=== PATIENT | male | born 1945 | race Caucasian/White ===

== ENCOUNTER 2018-07-09 06:11 | Emergency (ER) | payer MEDICARE ==
[~2018-07-09] VITALS: Ht 172.7 cm; Wt 68.0 kg
[2018-07-09 06:33] VITALS: BP 132/76
[2018-07-09] MEDS ORDERED: HYDR-3164 PO (06:33)
--- NOTE | 2018-07-09 06:44 | PHYS DOC ---
Past Medical History Past Medical History: High Cholesterol Additional Past Medical Histor: Chronic pain Past Surgical History: Other Additional Past Surgical Histo: Luiz knife Alcohol Use: None Drug Use: None Adult General Chief Complaint Chief Complaint: PAIN CONTROL HPI HPI Patient is a 72 year old male who presents with chronic pain. Patient is normally followed at the [facility] in [place] where he receives approximately 150 hydrocodone per month for control of chronic myalgias and facial pain which he has had for many years. Today, the patient has no new complaints. He is simply out of his hydrocodone. According to the [facility] records , the patient filled a prescription on June 27 for 150 hydrocodone. No fever or chills. No new injury. Review of Systems Review of Systems Constitutional: Denies HENT: Denies Respiratory: Denies cough Cardiovascular: No additional information not addressed in HPI : Denies dysuria or hematuria Musculoskeletal: Denies back pain Integument: Denies rash or skin lesions All other systems were reviewed and found to be within normal limits, except as documented in this note. Current Medications Current Medications Current Medications Medications (Trade) Dose Ordered Sig/Lesly Start Time Stop Time Status Last Admin Dose Admin Acetaminophen/ Hydrocodone Bitart (Lortab 5/325) 2 tab 1X ONCE 07/09/18 06:45 07/09/18 06:46 UNV Physical Exam Physical Exam Constitutional: Well developed, well nourished, no acute distress, non-toxic appearance HENT: Normocephalic, atraumatic, bilateral external ears normal, oropharynx moist, no oral exudates Eyes: PERRLA, EOMI, conjunctiva normal Neck: Normal range of motion, no tenderness, supple Skin: Warm, dry, no erythema, no rash Extremities: No edema Neurologic: Alert and oriented X 3 Psychologic: Affect normal Current Patient Data Vital Signs Vital Signs Date Time Temp Pulse Resp B/P (MAP) Pulse Ox O2 Delivery O2 Flow Rate FiO2 07/09/18 06:33 97.7 69 132/76 (94) 94 97.7 07/09/18 06:23 18 Room Air EKG EKG [] Radiology/Procedures Radiology/Procedures [] Impressions: Chronic Pain Course & Med Decision Making Course & Med Decision Making Pertinent Labs and Imaging studies reviewed. (See chart for details) Patient is seen for refill of chronic pain medications. He has no new or acute complaints today. According to records, he is using 10-15 hydrocodone daily. I informed that we could not refill pain medications for him in those quantities and that it was inappropriate use of the ER to present for refill of chronic pain medications. He is given two norco in the ER and provided an Rx for 15 hydrocodone as it is a Holiday weekend and he will not likely be able to f/u with his PCP at [place]. He is accompanied by a neighbor who is driving him. Recommended to return to the ER as needed for any new or acute complaints, but not for refill of chronic pain meds. [facility]. Dragon Disclaimer Dragon Disclaimer This electronic medical record was generated, in whole or in part, using a voice recognition dictation system. Departure Departure Impression: Primary Impression: Chronic pain Disposition: 01 HOME, SELF-CARE Condition: GOOD Patient Instructions: Chronic Pain Management-Brief Scripts Hydrocodone/Apap 5-325 (NORCO 5-325 TABLET) 1 Each Tablet 1-2 EACH PO PRN Q6HRS PRN for SEVERE PAIN, #15 as needed for pain Prov: MILADYS TUCKER DO 07/09/18 MILADYS TUCKER DO Jul 09, 2018 06:44
[2018-07-09] MEDS ORDERED: HYDROcodone/APAP 5/325MG 1 TAB TABLET PO ONE (07:00)
== END 2018-07-09 06:57 | disposition home or self-care (01) ==
LOC: ER 06:11
DX: G89.29 Other chronic pain (principal); M79.10 Myalgia, unspecified site; R51 Headache; E78.00 Pure hypercholesterolemia, unspecified
CPT/HCPCS: 99284-25

== ENCOUNTER 2019-07-25 12:32 | Inpatient (IN) | payer OTHER ==
[~2019-07-25] VITALS: Ht 177.8 cm; Wt 71.5 kg
[~2019-07-25 12:32] MED LIST: HYDR-3164 PO
[2019-07-25] MEDS ORDERED: IV NORMAL SALINE 1000ML BAG 1,000 ML IV SCH (12:34)
--- NOTE | 2019-07-25 12:50 | PHYS DOC ---
Past Medical History Past Medical History: High Cholesterol Additional Past Medical Histor: Chronic pain, TRIGEMINAL NEURALGIA, BPH Past Surgical History: Other Additional Past Surgical Histo: Luiz knife Alcohol Use: None Drug Use: None Adult General Chief Complaint Chief Complaint: confusion, low blood pressure HPI HPI Patient is a 73 year old patient with history of dyslipidemia, BPH, chronic pain, trigeminal neuralgia who presents via EMS with complaining of dizziness and low blood pressure and confusion. Patient is comfortable and unable to give history that according to EMS patient's daughter stated he lives with her and usually is alert and oriented but today was dizzy and unable to get out of bed and was confused. EMS reported that patient had blood pressure of 80s and treated with IV fluid with improvement of blood pressure at arrival to ER more than 100. Patient's daughter stated that they plan to send him to a intermediate. Review of Systems Review of Systems Constitutional: Denies fever or chills [] Eyes: Denies change in visual acuity, redness, or eye pain [] HENT: Denies nasal congestion or sore throat [] Respiratory: Denies cough or shortness of breath [] Cardiovascular: No additional information not addressed in HPI [] GI: Denies abdominal pain, nausea, vomiting, bloody stools or diarrhea [] : Denies dysuria or hematuria [] Musculoskeletal: Denies back pain or joint pain [] Integument: Denies rash or skin lesions [] Neurologic: Denies headache, focal weakness or sensory changes, reports generalized weakness Endocrine: Denies polyuria or polydipsia [] All other systems were reviewed and found to be within normal limits, except as documented in this note. Current Medications Current Medications Current Medications Medications (Trade) Dose Ordered Sig/Lesly Start Time Stop Time Status Last Admin Dose Admin Sodium Chloride 1,000 ml @ 1,000 mls/hr Q1H 07/25/19 12:34 07/25/19 13:33 DC 07/25/19 12:34 1,000 MLS/HR Allergies Allergies Allergies Coded Allergies Type Severity Reaction Last Updated Verified No Known Allergies Allergy Unknown 07/09/18 Yes Physical Exam Physical Exam Constitutional: Well nourished, mild distress, non-toxic appearance. [] HENT: Normocephalic, atraumatic, bilateral external ears normal, oropharynx moist, no oral exudates, nose normal. [] Eyes: PERRLA, EOMI, conjunctiva normal, no discharge. [] Neck: Normal range of motion, no tenderness, supple, no stridor. [] Cardiovascular:Heart rate regular rhythm, no murmur [] Lungs & Thorax: Bilateral breath sounds clear to auscultation [] Abdomen: Bowel sounds normal, soft, no tenderness, no masses, no pulsatile masses. [] Skin: Warm, dry, no erythema, no rash. [] Back: No tenderness, no CVA tenderness. [] Extremities: No tenderness, no cyanosis, no clubbing, ROM intact, no edema. [] Neurologic: Alert and oriented X 2, normal motor function, normal sensory function, no focal deficits noted. [] Psychologic: Affect normal, mood normal. [] Current Patient Data Vital Signs Vital Signs Date Time Temp Pulse Resp B/P (MAP) Pulse Ox O2 Delivery O2 Flow Rate FiO2 07/25/19 12:40 98.6 96 20 111/53 (72) 95 Room Air 98.6 Lab Values Laboratory Tests Test 07/25/19 12:45 White Blood Count 11.9 x10^3/uL (4.0-11.0) H Red Blood Count 3.09 x10^6/uL (4.30-5.70) L Hemoglobin 9.7 g/dL (13.0-17.5) L Hematocrit 28.6 % (39.0-53.0) L Mean Corpuscular Volume 93 fL (79-100) Mean Corpuscular Hemoglobin 31 pg (25-35) Mean Corpuscular Hemoglobin Concent 34 g/dL (31-37) Red Cell Distribution Width 15.0 % (11.5-14.5) H Platelet Count 162 x10^3/uL (140-400) Neutrophils (%) (Auto) 81 % (31-73) H Lymphocytes (%) (Auto) 12 % (24-48) L Monocytes (%) (Auto) 7 % (0-9) Eosinophils (%) (Auto) 0 % (0-3) Basophils (%) (Auto) 1 % (0-3) Neutrophils # (Auto) 9.7 x10^3/uL (1.8-7.7) H Lymphocytes # (Auto) 1.4 x10^3/uL (1.0-4.8) Monocytes # (Auto) 0.8 x10^3/uL (0.0-1.1) Eosinophils # (Auto) 0.0 x10^3/uL (0.0-0.7) Basophils # (Auto) 0.1 x10^3/uL (0.0-0.2) Prothrombin Time 14.4 SEC (11.7-14.0) H Prothrombin Time INR 1.2 (0.8-1.1) H Activated Partial Thromboplast Time 38 SEC (24-38) Sodium Level 139 mmol/L (136-145) Potassium Level 4.3 mmol/L (3.5-5.1) Chloride Level 106 mmol/L (98-107) Carbon Dioxide Level 24 mmol/L (21-32) Anion Gap 9 (6-14) Blood Urea Nitrogen 48 mg/dL (8-26) H Creatinine 1.3 mg/dL (0.7-1.3) Estimated GFR (Cockcroft-Gault) 54.1 BUN/Creatinine Ratio 37 (6-20) H Glucose Level 148 mg/dL (70-99) H Lactic Acid Level 2.1 mmol/L (0.4-2.0) H Calcium Level 8.5 mg/dL (8.5-10.1) Magnesium Level 2.0 mg/dL (1.8-2.4) Total Bilirubin 0.4 mg/dL (0.2-1.0) Aspartate Amino Transferase (AST) 17 U/L (15-37) Alanine Aminotransferase (ALT) 14 U/L (16-63) L Alkaline Phosphatase 130 U/L (46-116) H Creatine Kinase 148 U/L (39-308) Troponin I Quantitative < 0.017 ng/mL (0.000-0.055) IP-Tch-M-Type Natriuretic Peptide 92 pg/mL (0-124) Total Protein 6.2 g/dL (6.4-8.2) L Albumin 2.6 g/dL (3.4-5.0) L Albumin/Globulin Ratio 0.7 (1.0-1.7) L Lipase 45 U/L (73-393) L Procalcitonin < 0.10 ng/mL (0.00-0.10) Laboratory Tests 07/25/19 12:45 Laboratory Tests 07/25/19 12:45 EKG EKG EKG interpreted by me. EKG at 1237 showed normal sinus rhythm at rate of 97, normal KS and QT intervals, poor R-wave progress in anteroseptal leads, no acute ST and T-wave evaluation. Radiology/Procedures Radiology/Procedures [id number] [place] [address] IMAGING REPORT Signed PATIENT: MOOK SETH ACCOUNT: [id number] : 1945 LOCATION: ER AGE: 73 SEX: M EXAM STATUS: REG ER ORD. PHYSICIAN: RADHA PHELPS MD REASON: hypotension PROCEDURE: PORTABLE CHEST 1V PORTABLE CHEST 1V History: Hypotension Comparison: None. Findings: Prior granulomatous disease within the chest. Hyperinflation. No consolidation or pleural effusion. Normal heart size. No pneumothorax. Bilateral glenohumeral DJD, left greater than right. Impression: 1. Hyperinflation. 2. Prior granulomatous disease. Electronically signed by: Lucas Jimenez DO (07/25/2019 1:25 PM) [email or web address] DICTATED and SIGNED BY: LUCAS JIMENEZ DO DATE: 07/25/19 [address] [id number] IMAGING REPORT Signed PATIENT: MOOK SETH ACCOUNT: [id number] : 1945 LOCATION: ED HOLD AGE: 73 SEX: M EXAM STATUS: ADM IN ORD. PHYSICIAN: RADHA PHELPS MD REASON: hypotention PROCEDURE: CT HEAD WO CONTRAST CT HEAD WO CONTRAST History: Hypotension. Comparison: April 22, 2017 Technique: Noncontrast CT imaging was performed of the head. Exposure: One or more of the following individualized dose reduction techniques were utilized for this examination: 1. Automated exposure control 2. Adjustment of the mA and/or kV according to patient size 3. Use of iterative reconstruction technique. Findings: No intracranial hemorrhage. No mass effect. No hydrocephalus. Postoperative changes right retrosigmoid craniotomy. Right posterior cerebellar encephalomalacia, unchanged. Mild brain parenchymal volume loss. Mild foci of decreased aeration within the hemispheric white matter, most often due to chronic microvascular ischemia. Imaged orbits are unremarkable. Minimal secretions within the left inferior maxillary sinus. Mastoid air cells are clear. No acute calvarial fracture. Suboccipital scalp subcutaneous tissue lipoma. Impression: 1. No acute intracranial abnormality. Electronically signed by: Lucas Jimenez DO (07/25/2019 2:04 PM) [facility] DICTATED and SIGNED BY: LUCAS JIMENEZ DO DATE: 07/25/19 140 Course & Med Decision Making Course & Med Decision Making Pertinent Labs and Imaging studies reviewed. (See chart for details) Evaluation of patient in ER showed 73-year-old male patient brought in to ER. EMS because of hypotension and confusion. Patient was alert and oriented 2 with blood pressure more than 100 without fever, tachycardia. Patient had marked leukocytosis. Patient did not have hypotension while he was in ER. Lactic acid was 2.1 but patient did not have 30 ML/KG IV fluid because of stable vital signs. UA showed mild UTI. Patient treated with Rocephin.Patient requiring admission for further evaluation and treatment. Discussed with Dr. Norris who is in agreement with admission. Discussed findings and plan with patient and family, who acknowledge understanding and agreement. Dragon Disclaimer Dragon Disclaimer This electronic medical record was generated, in whole or in part, using a voice recognition dictation system. Departure Departure Impression: Primary Impression: Hypotension Additional Impressions: Altered level of consciousness Dehydration Elevated lactic acid level Urinary tract infection Anemia Hypoalbuminemia Disposition: ADMITTED INPATIENT (@131 [place] [id number]) Admitting Physician: CATRACHITA (Dr. Norris accepted admission at 1309) Condition: GUARDED Referrals: UNKNOWN PCP NAME (PCP) Critical Care Time Critical care time was 60 minutes exclusive of procedures. Date and Time of Reassessment Date: Jul 25, 2019 Time: 12:00 Fluid Challenge Is the fluid challenge complet: No IBW Target Volume Used: No BMI > 30: No Vital Signs Vital Signs: Vital Signs Date Time Temp Pulse Resp B/P (MAP) Pulse Ox O2 Delivery O2 Flow Rate FiO2 07/25/19 12:40 98.6 96 20 111/53 (72) 95 Room Air 98.6 Temperature Source: Oral Respirations Respiratory Effort: Normal Respiratory Pattern: Normal Cardiovascular Pulse Rhythm: Regular Heart: Nml rate, reg. rhythm Lung Sounds Breath Sounds: Clear Capillary Refil Capillary Refill: Rt Hand < 3 seconds Peripheral Pulse Pulse Location: Radial Pulse Strength: Normal (2+) Pulse Assessment Method: NIBP Problem Qualifiers Primary Impression: Hypotension Hypotension type: unspecified hypotension type Qualified Codes: I95.9 - Hypotension, unspecified Additional Impressions: Urinary tract infection Urinary tract infection type: site unspecified Hematuria presence: without hematuria Qualified Codes: N39.0 - Urinary tract infection, site not specified Anemia Anemia type: unspecified type Qualified Codes: D64.9 - Anemia, unspecified RADHA PHELPS MD Jul 25, 2019 12:49
[2019-07-25 13:01] LABS: BASO # 0.1 x10^3/uL (0.0-0.2); BASO % 1 % (0-3); EOS % 0 % (0-3); HEMATOCRIT 28.6 % (39.0-53.0); HEMOGLOBIN 9.7 g/dL (13.0-17.5); LYMPH # 1.4 x10^3/uL (1.0-4.8); LYMPH % 12 % (24-48); MEAN CORPUSCULAR HEMOGLOBIN 31 pg (25-35); MEAN CORPUSCULAR HGB CONC 34 g/dL (31-37); MEAN CORPUSCULAR VOLUME 93 fL (79-100); MONO # 0.8 x10^3/uL (0.0-1.1); MONO % 7 % (0-9); NEUT # 9.7 x10^3/uL (1.8-7.7); NEUT % 81 % (31-73); PLATELET COUNT 162 x10^3/uL (140-400); RED BLOOD COUNT 3.09 x10^6/uL (4.30-5.70); WHITE BLOOD COUNT 11.9 x10^3/uL (4.0-11.0)
[2019-07-25 13:06] LABS: CALCIUM 8.5 mg/dL (8.5-10.1); CREATININE 1.3 mg/dL (0.7-1.3); GFR 54.1; POTASSIUM 4.3 mmol/L (3.5-5.1)
--- NOTE | 2019-07-25 13:12 | PDOC1 ---
History and Physical Date of Admission Date of Admission DATE: 07/25/19 TIME: 13:11 Identification/Chief Complaint Chief Complaint Patient is a 73 year old inc confusion who presents with acute encephalopathy and 30# weight loss, not eating well x weeks, disoriented to place and day today, family noted acute decline TODAY remote hx heavy tobacco abuse 2 PPD X 40 YRS, very poor appetite, underweight,, remote hx melanoma of face , mild hypoxia noted on ABG Past Medical History Past Medical History Past Medical History Past Medical History Past Medical History: High Cholesterol, cognitive decline Additional Past Medical Histor: Chronic pain, TRIGEMINAL NEURALGIA, BPH Past Surgical History: Other Additional Past Surgical Histo: Luiz knife FOR MELANOMA REMOTE Alcohol Use: None Drug Use: None fhx hyperlipidemia Pulmonary: COPD CENTRAL NERVOUS SYSTEM: Dementia Musculoskeletal: Osteoarthritis Family History Family History: High Cholestrol, Hypertension Social History Smoke: Quit ALCOHOL: none Drugs: None Current Medications Current Medications Current Medications Sodium Chloride 1,000 ml @ 1,000 mls/hr Q1H IV ; Start 07/25/19 at 12:34; Stop 07/25/19 at 13:33 Active Scripts Active [place] 5-325 Tablet (Acetaminophen/Hydrocodone Bitart) 1 Each Tablet 1-2 Each PO PRN Q6HRS PRN as needed for pain Allergies Allergies: Coded Allergies: No Known Allergies (Verified Allergy, Unknown, 07/09/18) ROS Review of System Review of Systems Review of Systems poor historian due to confusional state Constitutional: Denies fever or chills [] 30# wt loss according to family in icu Eyes: Denies change in visual acuity, redness, or eye pain [] HENT: Denies nasal congestion or sore throat [] Respiratory: Denies cough or shortness of breath [] Cardiovascular: No additional information not addressed in HPI [] GI: Denies abdominal pain, nausea, vomiting, bloody stools or diarrhea [] : Denies dysuria or hematuria [] Musculoskeletal: Denies back pain or joint pain [] Integument: Denies rash or skin lesions [] Neurologic: Denies headache, focal weakness or sensory changes [] Endocrine: Denies polyuria or polydipsia [] 14 systems were reviewed and found to be within normal limits, except as documented in this note. General: YES: Fatigue PSYCHOLOGICAL ROS: YES: Disorientation, Memory difficulties Musculoskeletal: Yes Gait Disturbance Neurological: Yes Memory Loss Physical Exam Physical Exam Constitutional: Well developed, well nourished, no acute distress, non-toxic appearance. [] HENT: Normocephalic, atraumatic, bilateral external ears normal, oropharynx moist, no oral exudates, nose normal. [] Eyes: PERRLA, EOMI, conjunctiva normal, no discharge. [] Neck: Normal range of motion, no tenderness, supple, no stridor. [] Cardiovascular:Heart rate regular rhythm, no murmur [] Lungs & Thorax: Bilateral breath sounds clear to auscultation [] Abdomen: Bowel sounds normal, soft, no tenderness, no masses, no pulsatile masses. thin , nontender [] Skin: Warm, dry, no erythema, no rash. [] Back: No tenderness, no CVA tenderness. [] Extremities: No tenderness, no cyanosis, no clubbing, ROM intact, no edema. [] Neurologic: disoriented [] Psychologic: anxious [] General: Cooperative, No acute distress Heart: no thrills Breasts: Not examined Abdomen: Soft, No tenderness, Other (thin) Rectal Exam: not examined PELVIC: Examination not indicated Neuro: Cranial nerves 3-12 NL Vitals Vitals Vital Signs Date Time Temp Pulse Resp B/P (MAP) Pulse Ox O2 Delivery O2 Flow Rate FiO2 07/25/19 12:40 98.6 96 20 111/53 (72) 95 Room Air 98.6 Labs Labs Laboratory Tests Test 07/25/19 12:45 White Blood Count 11.9 x10^3/uL (4.0-11.0) Red Blood Count 3.09 x10^6/uL (4.30-5.70) Hemoglobin 9.7 g/dL (13.0-17.5) Hematocrit 28.6 % (39.0-53.0) Mean Corpuscular Volume 93 fL (79-100) Mean Corpuscular Hemoglobin 31 pg (25-35) Mean Corpuscular Hemoglobin Concent 34 g/dL (31-37) Red Cell Distribution Width 15.0 % (11.5-14.5) Platelet Count 162 x10^3/uL (140-400) Neutrophils (%) (Auto) 81 % (31-73) Lymphocytes (%) (Auto) 12 % (24-48) Monocytes (%) (Auto) 7 % (0-9) Eosinophils (%) (Auto) 0 % (0-3) Basophils (%) (Auto) 1 % (0-3) Neutrophils # (Auto) 9.7 x10^3/uL (1.8-7.7) Lymphocytes # (Auto) 1.4 x10^3/uL (1.0-4.8) Monocytes # (Auto) 0.8 x10^3/uL (0.0-1.1) Eosinophils # (Auto) 0.0 x10^3/uL (0.0-0.7) Basophils # (Auto) 0.1 x10^3/uL (0.0-0.2) Sodium Level 139 mmol/L (136-145) Potassium Level 4.3 mmol/L (3.5-5.1) Chloride Level 106 mmol/L (98-107) Carbon Dioxide Level 24 mmol/L (21-32) Anion Gap 9 (6-14) Blood Urea Nitrogen 48 mg/dL (8-26) Creatinine 1.3 mg/dL (0.7-1.3) Estimated GFR (Cockcroft-Gault) 54.1 BUN/Creatinine Ratio 37 (6-20) Glucose Level 148 mg/dL (70-99) Calcium Level 8.5 mg/dL (8.5-10.1) Laboratory Tests Test 07/25/19 12:45 White Blood Count 11.9 x10^3/uL (4.0-11.0) Red Blood Count 3.09 x10^6/uL (4.30-5.70) Hemoglobin 9.7 g/dL (13.0-17.5) Hematocrit 28.6 % (39.0-53.0) Mean Corpuscular Volume 93 fL (79-100) Mean Corpuscular Hemoglobin 31 pg (25-35) Mean Corpuscular Hemoglobin Concent 34 g/dL (31-37) Red Cell Distribution Width 15.0 % (11.5-14.5) Platelet Count 162 x10^3/uL (140-400) Neutrophils (%) (Auto) 81 % (31-73) Lymphocytes (%) (Auto) 12 % (24-48) Monocytes (%) (Auto) 7 % (0-9) Eosinophils (%) (Auto) 0 % (0-3) Basophils (%) (Auto) 1 % (0-3) Neutrophils # (Auto) 9.7 x10^3/uL (1.8-7.7) Lymphocytes # (Auto) 1.4 x10^3/uL (1.0-4.8) Monocytes # (Auto) 0.8 x10^3/uL (0.0-1.1) Eosinophils # (Auto) 0.0 x10^3/uL (0.0-0.7) Basophils # (Auto) 0.1 x10^3/uL (0.0-0.2) Sodium Level 139 mmol/L (136-145) Potassium Level 4.3 mmol/L (3.5-5.1) Chloride Level 106 mmol/L (98-107) Carbon Dioxide Level 24 mmol/L (21-32) Anion Gap 9 (6-14) Blood Urea Nitrogen 48 mg/dL (8-26) Creatinine 1.3 mg/dL (0.7-1.3) Estimated GFR (Cockcroft-Gault) 54.1 BUN/Creatinine Ratio 37 (6-20) Glucose Level 148 mg/dL (70-99) Calcium Level 8.5 mg/dL (8.5-10.1) Images Images History: Hypotension Comparison: None. Findings: Prior granulomatous disease within the chest. Hyperinflation. No consolidation or pleural effusion. Normal heart size. No pneumothorax. Bilateral glenohumeral DJD, left greater than right. Impression: 1. Hyperinflation. 2. Prior granulomatous disease. Electronically signed by: Mejia Ortiz DO (07/25/2019 1:25 PM) [id number] DICTATED and SIGNED BY: MEJIA ORTIZ DO DATE: 07/25/[address] HEAD WO CONTRAST History: Hypotension. Comparison: April 22, 2017 Technique: Noncontrast CT imaging was performed of the head. Exposure: One or more of the following individualized dose reduction techniques were utilized for this examination: 1. Automated exposure control 2. Adjustment of the mA and/or kV according to patient size 3. Use of iterative reconstruction technique. Findings: No intracranial hemorrhage. No mass effect. No hydrocephalus. Postoperative changes right retrosigmoid craniotomy. Right posterior cerebellar encephalomalacia, unchanged. Mild brain parenchymal volume loss. Mild foci of decreased aeration within the hemispheric white matter, most often due to chronic microvascular ischemia. Imaged orbits are unremarkable. Minimal secretions within the left inferior maxillary sinus. Mastoid air cells are clear. No acute calvarial fracture. Suboccipital scalp subcutaneous tissue lipoma. Impression: 1. No acute intracranial abnormality. Electronically signed by: Mejia Ortiz DO (07/25/2019 2:04 PM) [facility] DICTATED and SIGNED BY: MEJIA ORTIZ DO VTE Prophylaxis Ordered VTE Prophylaxis Devices: Yes VTE Pharmacological Prophylaxi: Yes Assessment/Plan Assessment/Plan impression 1. Acute mental status change suspect infectious cause 2. leukocytosis POSSIBLE SEPSIS 3. cognitive decline x months Mild foci of decreased aeration withinthe hemispheric white matter, most often due to chronic microvascular ischemia. ct head 07/25 4. severe protein-caloric malnutrition 5. HX copd, remote heavy tobacco abuse, MILD HYPOXIA ON ABG 6. abnormal weight loss, recent 7. NORMOCYTIC ANEMIA plan admit blood and urine cultures ID CONSULT Emperic iv zosyn abg procalcitonin DVT PROPHYLAXIS IV FLUID SUPPORT NEUROCHECKS Q 4 HRS JUDITH METZGER MD Jul 25, 2019 13:12
[2019-07-25 13:15] LABS: ALBUMIN 2.6 g/dL (3.4-5.0); ALBUMIN/GLOBULIN RATIO 0.7 (1.0-1.7); TOTAL BILIRUBIN 0.4 mg/dL (0.2-1.0); TOTAL PROTEIN 6.2 g/dL (6.4-8.2)
[2019-07-25 13:18] LABS: PROTHROMBIN TIME PATIENT 14.4 SEC (11.7-14.0)
--- NOTE | 2019-07-25 13:28 | RAD ---
PORTABLE CHEST 1V History: Hypotension Comparison: None. Findings: Prior granulomatous disease within the chest. Hyperinflation. No consolidation or pleural effusion. Normal heart size. No pneumothorax. Bilateral glenohumeral DJD, left greater than right. Impression: 1. Hyperinflation. 2. Prior granulomatous disease. Electronically signed by: Lucas Jimenez DO (07/25/2019 1:25 PM) [facility]
--- NOTE | 2019-07-25 14:07 | RAD ---
CT HEAD WO CONTRAST History: Hypotension. Comparison: April 22, 2017 Technique: Noncontrast CT imaging was performed of the head. Exposure: One or more of the following individualized dose reduction techniques were utilized for this examination: 1. Automated exposure control 2. Adjustment of the mA and/or kV according to patient size 3. Use of iterative reconstruction technique. Findings: No intracranial hemorrhage. No mass effect. No hydrocephalus. Postoperative changes right retrosigmoid craniotomy. Right posterior cerebellar encephalomalacia, unchanged. Mild brain parenchymal volume loss. Mild foci of decreased aeration within the hemispheric white matter, most often due to chronic microvascular ischemia. Imaged orbits are unremarkable. Minimal secretions within the left inferior maxillary sinus. Mastoid air cells are clear. No acute calvarial fracture. Suboccipital scalp subcutaneous tissue lipoma. Impression: 1. No acute intracranial abnormality. Electronically signed by: Lucas Jimenez DO (07/25/2019 2:04 PM) [facility]
[2019-07-25] MEDS ORDERED: cefTRIAXone IV Push 1 GM VIAL. IVP ONE (15:00)
[2019-07-25] MEDS ORDERED: fentaNYL PF VIAL 100 MCG/2 ML VIAL IVP ONE (15:15)
[2019-07-25] MEDS: IV NORMAL SALINE 1000ML BAG 1,000 ML IV SCH ×3 (15:41→21:53)
[2019-07-25 15:48] LABS: BILIRUBIN,URINE NEGATIVE (NEG); CLARITY,URINE CLEAR; COLOR,URINE YELLOW; NITRITE,URINE NEGATIVE (NEG); PH,URINE 6.5; PROTEIN,URINE NEGATIVE (NEG-TRACE)
--- NOTE | 2019-07-25 15:48 | EKG ---
[facility] [address] [place] [address] Test Date: 2019-07-25 Test Time: 12:37:58 Pat Name: MOOK SETH Department: Room: Gender: [employer] Team Member: : 1945 Requested By: RADHA PHELPS Order Number: [id number] Reading MD: Measurements Intervals [place] Rate: 97 P: 115 IA: 178 QRS: 49 QRSD: 84 T: 43 QT: 336 QTc: 431 Interpretive Statements SINUS RHYTHM QRS(T) CONTOUR ABNORMALITY CONSIDER ANTEROLATERAL MYOCARDIAL DAMAGE POSSIBLY ABNORMAL ECG RI6.01 No previous ECG available for comparison
[2019-07-25 15:49] LABS: BARBITURATES NEG (NEG); BENZODIAZEPINES NEG (NEG); CANNABINOIDS NEG (NEG); COCAINE NEG (NEG); METHADONE NEG (NEG); OPIATES POS (NEG); PHENCYCLIDINE NEG (NEG)
[2019-07-25 15:50] LABS: AMPHETAMINE/METHAMPHETAMINE NEG (NEG)
[2019-07-25 15:59] LABS: BASE EXCESS COOX -1 mmol/L (-3-3); HCO3 COOX 22 mmol/L (21-28); METHEMOGLOBIN 0.4 % (0.0-1.9); OXYHEMOGLOBIN 91.2 %; PCO2 COOX 33 mmHg (35-46); PO2 COOX 64 mmHg (65-108); SAT O2 COOX 92 % (92-99)
[2019-07-25 15:59] LABS: BACTERIA,URINE 0 /HPF (0-FEW); HYALINE CASTS, URINE FEW /HPF; SQUAMOUS EPITHELIAL CELL,UR OCC /LPF
[2019-07-25] MEDS ORDERED: PIPERACILLIN/TAZOBACTAM 3.375 GM in IV NORMAL SALINE 50ML 50 ML IV ONE (16:00)
[2019-07-25] MEDS ORDERED: guaiFENesin ORAL 200 MG/10 ML LIQUID. PO PRN (16:45)
[2019-07-25] MEDS ORDERED: ONDANSETRON PF 4 MG/2 ML VIAL. IV PRN (16:45)
[2019-07-25] MEDS ORDERED: 0.9 % SODIUM CHLORIDE 10 ML DISP.SYRIN. IV PRN (16:45)
[2019-07-25] MEDS ORDERED: SODIUM PHOSPHATES 19/7GM 133 ML ENEMA. PR PRN (16:45)
[2019-07-25] MEDS ORDERED: DOCUSATE SODIUM 100 MG CAPSULE. PO PRN (16:45)
[2019-07-25 18:00] VITALS: BP 115/69
--- NOTE | 2019-07-25 18:02 | PDOC2 ---
NEUROLOGY CONSULT Date of Admission Date of Admission DATE: 07/25/19 TIME: 17:56 Reason for Consult Reason for Consult: Altered mental status Referring Physician Referring Physician: Dr. Norris Source Source: Caregiver (daughter), Chart review, Patient History of Present Illness History of Present Illness Patient is a 73-year-old right-handed male diagnosed at the [facility] about a year ago with early Alzheimer's disease. He has been living with his daughter after he deftly took an overdose of medications. He has a history of trigeminal neuralgia. Today he fell several times. He Trying to go up to the bathroom but did not defecate or urinate. Paramedics found blood pressure in the 80 systolic and gave him fluid and he is better. He has a main complaint of left foot pain but the daughter does not think that his germane. He has never had a stroke, seizure, or significant head injury. Past Medical History Cardiovascular: HTN Pulmonary: COPD CENTRAL NERVOUS SYSTEM: Dementia, Other (trigeminal neuralgia) Musculoskeletal: Osteoarthritis Renal/: Benign prostatic enlarg. Past Surgical History Past Surgical History: Other (melanoma removal) Family History Family History: No pertinent hx Social History Social History , no alcohol or tobacco, lives with daughter Current Medications Current Medications Current Medications Sodium Chloride 1,000 ml @ 1,000 mls/hr Q1H IV Last administered on 07/25/19at 12:34; Start 07/25/19 at 12:34; Stop 07/25/19 at 13:33; Status DC Ceftriaxone Sodium (Rocephin) 1 gm 1X ONCE IVP Last administered on 07/25/19at 15:29; Start 07/25/19 at 15:00; Stop 07/25/19 at 15:01; Status DC Piperacillin Sod/ Tazobactam Sod 3.375 gm/Sodium Chloride 50 ml @ 100 mls/hr Q6HRS IV ; Start 07/26/19 at 00:00; Status UNV Sodium Chloride 1,000 ml @ 150 mls/hr Q6H40M IV Last administered on 07/25/19at 15:41; Start 07/25/19 at 15:13; Stop 07/26/19 at 15:12 Fentanyl Citrate (Fentanyl 2ml Vial) 50 mcg 1X ONCE IVP Last administered on 07/25/19at 15:42; Start 07/25/19 at 15:15; Stop 07/25/19 at 15:20; Status DC Piperacillin Sod/ Tazobactam Sod 3.375 gm/Sodium Chloride 50 ml @ 100 mls/hr 1X ONCE IV Last administered on 07/25/19at 15:30; Start 07/25/19 at 16:00; Stop 07/25/19 at 16:29; Status DC Sodium Chloride (Normal Saline Flush) 3 ml QSHIFT PRN IV AFTER MEDS AND BLOOD DRAWS; Start 07/25/19 at 16:45 Sodium Chloride 1,000 ml @ 70 mls/hr [id number] IV ; Start 07/25/19 at 16:32 Ondansetron HCl (Zofran) 4 mg PRN Q4HRS PRN IV NAUSEA/VOMITING; Start 07/25/19 at 16:45 Acetaminophen (Tylenol) 650 mg PRN Q4HRS PRN PO TEMP OVER 100.4F OR MILD PAIN; Start 07/25/19 at 16:45 Sodium Monofluorophosphate (Fleet Adult) 133 ml PRN DAILY PRN VT CONSTIPATION; Start 07/25/19 at 16:45 Docusate Sodium (Colace) 100 mg PRN BID PRN PO CONSTIPATION; Start 07/25/19 at 16:45 Albuterol/ Ipratropium (Duoneb) 3 ml Q4HRS NEB ; Start 07/25/19 at 20:00 Guaifenesin (Robitussin) 200 mg PRN Q4HRS PRN PO COUGH; Start 07/25/19 at 16:45 Lorazepam (Ativan) 0.5 mg PRN Q4HRS PRN PO ANXIETY / AGITATION; Start 07/25/19 at 16:45 Enoxaparin Sodium (Lovenox 40mg Syringe) 40 mg DAILY SQ ; Start 07/26/19 at 09:00 Active Scripts Active [place] 5-325 Tablet (Acetaminophen/Hydrocodone Bitart) 1 Each Tablet 1-2 Each PO PRN Q6HRS PRN as needed for pain Allergies Allergies: Coded Allergies: No Known Allergies (Verified Allergy, Unknown, 07/09/18) ROS Review of System Negative for fever, chills, weight loss, shortness of breath, chest pain, indigestion, hematochezia, melena, and dysuria. Full 14-point review of systems is negative. Physical Exam Physical Examination General: Well-developed, well-nourished, white male], in no acute distress HEENT: Normocephalic andatraumatic.Temporal arteriespulsatile and nontender. Neck: Supple without bruit, no meningismus Musculoskeletal: Stability:see neurologic. Gait exam:see neurologic. Tone:see neurologic.Strength:see neurologic. Neurological: Mental Status:intact, orientation, memory, attention span/concentration, language, fund of knowledge: Knows location, not date, not name of president, names and repeats well, speech fluent. Cranial Nerves:Pupils equal and reactive to light, extraocular movements areintact, visual talley are full to confrontation. Facial sensation is normal. There is no facial asymmetry. Vestibulo-ocular reflex is intact. Palate elevates and tongue protrudes in midline. All other cranial related problems are negative except as mentioned before.Reflexes:2+ and symmetric with flexor plantar responses. Motor:5/5 strength with normal tone and bulk. Coordination:Finger-nose finger and lpfe-iz-buer testing are normal. Rapid alternating movements and fine finger movements are intact. Gait:not tested. Sensory:Normal pinprick, vibration, light touch, proprioception. Vitals VITALS Vital Signs Date Time Temp Pulse Resp B/P (MAP) Pulse Ox O2 Delivery O2 Flow Rate FiO2 07/25/19 15:42 18 96 Room Air 07/25/19 15:36 92 07/25/19 12:40 98.6 111/53 (72) 98.6 Labs Labs Laboratory Tests Test 07/25/19 12:45 07/25/19 15:33 07/25/19 15:45 07/25/19 16:05 White Blood Count 11.9 x10^3/uL (4.0-11.0) Red Blood Count 3.09 x10^6/uL (4.30-5.70) Hemoglobin 9.7 g/dL (13.0-17.5) Hematocrit 28.6 % (39.0-53.0) Mean Corpuscular Volume 93 fL (79-100) Mean Corpuscular Hemoglobin 31 pg (25-35) Mean Corpuscular Hemoglobin Concent 34 g/dL (31-37) Red Cell Distribution Width 15.0 % (11.5-14.5) Platelet Count 162 x10^3/uL (140-400) Neutrophils (%) (Auto) 81 % (31-73) Lymphocytes (%) (Auto) 12 % (24-48) Monocytes (%) (Auto) 7 % (0-9) Eosinophils (%) (Auto) 0 % (0-3) Basophils (%) (Auto) 1 % (0-3) Neutrophils # (Auto) 9.7 x10^3/uL (1.8-7.7) Lymphocytes # (Auto) 1.4 x10^3/uL (1.0-4.8) Monocytes # (Auto) 0.8 x10^3/uL (0.0-1.1) Eosinophils # (Auto) 0.0 x10^3/uL (0.0-0.7) Basophils # (Auto) 0.1 x10^3/uL (0.0-0.2) Prothrombin Time 14.4 SEC (11.7-14.0) Prothromb Time International Ratio 1.2 (0.8-1.1) Activated Partial Thromboplast Time 38 SEC (24-38) Sodium Level 139 mmol/L (136-145) Potassium Level 4.3 mmol/L (3.5-5.1) Chloride Level 106 mmol/L (98-107) Carbon Dioxide Level 24 mmol/L (21-32) Anion Gap 9 (6-14) Blood Urea Nitrogen 48 mg/dL (8-26) Creatinine 1.3 mg/dL (0.7-1.3) Estimated GFR (Cockcroft-Gault) 54.1 BUN/Creatinine Ratio 37 (6-20) Glucose Level 148 mg/dL (70-99) Lactic Acid Level 2.1 mmol/L (0.4-2.0) 1.0 mmol/L (0.4-2.0) Calcium Level 8.5 mg/dL (8.5-10.1) Magnesium Level 2.0 mg/dL (1.8-2.4) Total Bilirubin 0.4 mg/dL (0.2-1.0) Aspartate Amino Transf (AST/SGOT) 17 U/L (15-37) Alanine Aminotransferase (ALT/SGPT) 14 U/L (16-63) Alkaline Phosphatase 130 U/L (46-116) Creatine Kinase 148 U/L (39-308) Troponin I Quantitative < 0.017 ng/mL (0.000-0.055) VV-Doq-C-Type Natriuretic Peptide 92 pg/mL (0-124) Total Protein 6.2 g/dL (6.4-8.2) Albumin 2.6 g/dL (3.4-5.0) Albumin/Globulin Ratio 0.7 (1.0-1.7) Lipase 45 U/L (73-393) Procalcitonin < 0.10 ng/mL (0.00-0.10) Urine Collection Type U cath Urine Color Yellow Urine Clarity Clear Urine pH 6.5 Urine Specific [place] 1.015 Urine Protein Negative mg/dL (NEG-TRACE) Urine Glucose (UA) Negative mg/dL (NEG) Urine Ketones (Stick) Negative mg/dL (NEG) Urine Blood Negative (NEG) Urine Nitrite Negative (NEG) Urine Bilirubin Negative (NEG) Urine Urobilinogen Dipstick 1.0 mg/dL (0.2 mg/dL) Urine Leukocyte Esterase Trace (NEG) Urine RBC 1-2 /HPF (0-2) Urine WBC 5-10 /HPF (0-4) Urine Squamous Epithelial Cells Occ /LPF Urine Transitional Epithelial Cells Occ /LPF Urine Bacteria 0 /HPF (0-FEW) Urine Hyaline Casts Few /HPF Urine Mucus Slight /LPF Urine Opiates Screen Pos (NEG) Urine Methadone Screen Neg (NEG) Urine Barbiturates Neg (NEG) Urine Phencyclidine Screen Neg (NEG) Urine Amphetamine/Methamphetamine Neg (NEG) Urine Benzodiazepines Screen Neg (NEG) Urine Cocaine Screen Neg (NEG) Urine Cannabinoids Screen Neg (NEG) Urine Ethyl Alcohol Neg (NEG) O2 Saturation 92 % (92-99) Arterial Blood pH 7.44 (7.35-7.45) Arterial Blood pCO2 at Patient Temp 33 mmHg (35-46) Arterial Blood pO2 at Patient Temp 64 mmHg (65-108) Arterial Blood HCO3 22 mmol/L (21-28) Arterial Blood Base Excess -1 mmol/L (-3-3) Oxyhemoglobin 91.2 % Methemoglobin 0.4 % (0.0-1.9) Carbon Monoxide, Quantitative 0.3 % (0.0-1.9) FiO2 21 Laboratory Tests Test 07/25/19 12:45 07/25/19 15:33 07/25/19 15:45 07/25/19 16:05 White Blood Count 11.9 x10^3/uL (4.0-11.0) Red Blood Count 3.09 x10^6/uL (4.30-5.70) Hemoglobin 9.7 g/dL (13.0-17.5) Hematocrit 28.6 % (39.0-53.0) Mean Corpuscular Volume 93 fL (79-100) Mean Corpuscular Hemoglobin 31 pg (25-35) Mean Corpuscular Hemoglobin Concent 34 g/dL (31-37) Red Cell Distribution Width 15.0 % (11.5-14.5) Platelet Count 162 x10^3/uL (140-400) Neutrophils (%) (Auto) 81 % (31-73) Lymphocytes (%) (Auto) 12 % (24-48) Monocytes (%) (Auto) 7 % (0-9) Eosinophils (%) (Auto) 0 % (0-3) Basophils (%) (Auto) 1 % (0-3) Neutrophils # (Auto) 9.7 x10^3/uL (1.8-7.7) Lymphocytes # (Auto) 1.4 x10^3/uL (1.0-4.8) Monocytes # (Auto) 0.8 x10^3/uL (0.0-1.1) Eosinophils # (Auto) 0.0 x10^3/uL (0.0-0.7) Basophils # (Auto) 0.1 x10^3/uL (0.0-0.2) Prothrombin Time 14.4 SEC (11.7-14.0) Prothromb Time International Ratio 1.2 (0.8-1.1) Activated Partial Thromboplast Time 38 SEC (24-38) Sodium Level 139 mmol/L (136-145) Potassium Level 4.3 mmol/L (3.5-5.1) Chloride Level 106 mmol/L (98-107) Carbon Dioxide Level 24 mmol/L (21-32) Anion Gap 9 (6-14) Blood Urea Nitrogen 48 mg/dL (8-26) Creatinine 1.3 mg/dL (0.7-1.3) Estimated GFR (Cockcroft-Gault) 54.1 BUN/Creatinine Ratio 37 (6-20) Glucose Level 148 mg/dL (70-99) Lactic Acid Level 2.1 mmol/L (0.4-2.0) 1.0 mmol/L (0.4-2.0) Calcium Level 8.5 mg/dL (8.5-10.1) Magnesium Level 2.0 mg/dL (1.8-2.4) Total Bilirubin 0.4 mg/dL (0.2-1.0) Aspartate Amino Transf (AST/SGOT) 17 U/L (15-37) Alanine Aminotransferase (ALT/SGPT) 14 U/L (16-63) Alkaline Phosphatase 130 U/L (46-116) Creatine Kinase 148 U/L (39-308) Troponin I Quantitative < 0.017 ng/mL (0.000-0.055) HM-Kri-N-Type Natriuretic Peptide 92 pg/mL (0-124) Total Protein 6.2 g/dL (6.4-8.2) Albumin 2.6 g/dL (3.4-5.0) Albumin/Globulin Ratio 0.7 (1.0-1.7) Lipase 45 U/L (73-393) Procalcitonin < 0.10 ng/mL (0.00-0.10) Urine Collection Type U cath Urine Color Yellow Urine Clarity Clear Urine pH 6.5 Urine Specific [place] 1.015 Urine Protein Negative mg/dL (NEG-TRACE) Urine Glucose (UA) Negative mg/dL (NEG) Urine Ketones (Stick) Negative mg/dL (NEG) Urine Blood Negative (NEG) Urine Nitrite Negative (NEG) Urine Bilirubin Negative (NEG) Urine Urobilinogen Dipstick 1.0 mg/dL (0.2 mg/dL) Urine Leukocyte Esterase Trace (NEG) Urine RBC 1-2 /HPF (0-2) Urine WBC 5-10 /HPF (0-4) Urine Squamous Epithelial Cells Occ /LPF Urine Transitional Epithelial Cells Occ /LPF Urine Bacteria 0 /HPF (0-FEW) Urine Hyaline Casts Few /HPF Urine Mucus Slight /LPF Urine Opiates Screen Pos (NEG) Urine Methadone Screen Neg (NEG) Urine Barbiturates Neg (NEG) Urine Phencyclidine Screen Neg (NEG) Urine Amphetamine/Methamphetamine Neg (NEG) Urine Benzodiazepines Screen Neg (NEG) Urine Cocaine Screen Neg (NEG) Urine Cannabinoids Screen Neg (NEG) Urine Ethyl Alcohol Neg (NEG) O2 Saturation 92 % (92-99) Arterial Blood pH 7.44 (7.35-7.45) Arterial Blood pCO2 at Patient Temp 33 mmHg (35-46) Arterial Blood pO2 at Patient Temp 64 mmHg (65-108) Arterial Blood HCO3 22 mmol/L (21-28) Arterial Blood Base Excess -1 mmol/L (-3-3) Oxyhemoglobin 91.2 % Methemoglobin 0.4 % (0.0-1.9) Carbon Monoxide, Quantitative 0.3 % (0.0-1.9) FiO2 [address] HEAD WO CONTRAST History: Hypotension. Comparison: April 22, 2017 Technique: Noncontrast CT imaging was performed of the head. Exposure: One or more of the following individualized dose reduction techniques were utilized for this examination: 1. Automated exposure control 2. Adjustment of the mA and/or kV according to patient size 3. Use of iterative reconstruction technique. Findings: No intracranial hemorrhage. No mass effect. No hydrocephalus. Postoperative changes right retrosigmoid craniotomy. Right posterior cerebellar encephalomalacia, unchanged. Mild brain parenchymal volume loss. Mild foci of decreased aeration within the hemispheric white matter, most often due to chronic microvascular ischemia. Imaged orbits are unremarkable. Minimal secretions within the left inferior maxillary sinus. Mastoid air cells are clear. No acute calvarial fracture. Suboccipital scalp subcutaneous tissue lipoma. Impression: 1. No acute intracranial abnormality. Assessment/Plan Assessment/Plan Impression: Dementia, consistent with Alzheimer's Hypotension and falls, I doubt that he's had a stroke, I see no evidence of vestibular abnormality, myelopathy, radiculopathy, or neuropathy. I don't see any evidence of acute central nervous system infection. Note leukocytosis, lactic acidosis Recommendations: I doubt he would hold still for an MRI without deep sedation, so instead I will simply repeat the head CT in 2 days Hold on lumbar puncture Resume donepezil Add memantine Laboratory studies, see orders Infectious disease is also consulted. I fully discussed with the patient's daughter. Thank you for letting me help with the patient's care. HAROON MCQUEEN MD Jul 25, 2019 18:02
[2019-07-25] MEDS ORDERED: GABAPENTIN 100 MG CAPSULE. PO SCH (19:15)
[2019-07-25 19:57] VITALS: BP 102/63
[2019-07-25] MEDS: IPRATRPIUM/ALBUTEROL 0.5/2.5MG 3 ML NEBU. NEB SCH ×2 (20:00→23:56)
[2019-07-25] MEDS ORDERED: GABAPENTIN 100 MG CAPSULE. PO ONE (20:15)
[2019-07-25] MEDS: ACETAMINOPHEN 325 MG TABLET. PO PRN (22:15)
[2019-07-25 23:32] VITALS: BP 92/55
[2019-07-26] VITALS (8 sets, daily range): BP systolic 77–108; BP diastolic 43–66
[2019-07-26] MEDS: PIPERACILLIN/TAZOBACTAM 3.375 GM in IV NORMAL SALINE 50ML 50 ML IV SCH ×3 (00:24→11:47)
[2019-07-26] MEDS: MORPHINE SULFATE 2 MG/ML VIAL. IV PRN ×4 (00:44→20:50)
[2019-07-26] MEDS: IPRATRPIUM/ALBUTEROL 0.5/2.5MG 3 ML NEBU. NEB SCH ×6 (03:48→23:37)
[2019-07-26] MEDS: IV NORMAL SALINE 1000ML BAG 1,000 ML IV SCH ×4 (04:33→20:54)
[2019-07-26] MEDS: MEMANTINE 5 MG TABLET. PO SCH (08:46)
[2019-07-26] MEDS: DONEPEZIL HCL 10 MG TABLET. PO SCH (08:46)
[2019-07-26] MEDS: ENOXAPARIN 40 MG/0.4 ML SYRINGE. SQ SCH (08:46)
[2019-07-26] MEDS: GABAPENTIN 100 MG CAPSULE. PO SCH ×2 (08:46→20:49)
--- NOTE | 2019-07-26 11:53 | PDOC ---
Infectious Disease Note Vital Sign Vital Signs Vital Signs Date Time Temp Pulse Resp B/P (MAP) Pulse Ox O2 Delivery O2 Flow Rate FiO2 07/26/19 11:03 93 Room Air 07/26/19 07:00 97.6 68 18 108/56 (73) 97.6 Labs Lab Laboratory Tests Test 07/25/19 12:45 07/25/19 15:33 07/25/19 15:45 07/25/19 16:05 White Blood Count 11.9 x10^3/uL (4.0-11.0) Red Blood Count 3.09 x10^6/uL (4.30-5.70) Hemoglobin 9.7 g/dL (13.0-17.5) Hematocrit 28.6 % (39.0-53.0) Mean Corpuscular Volume 93 fL (79-100) Mean Corpuscular Hemoglobin 31 pg (25-35) Mean Corpuscular Hemoglobin Concent 34 g/dL (31-37) Red Cell Distribution Width 15.0 % (11.5-14.5) Platelet Count 162 x10^3/uL (140-400) Neutrophils (%) (Auto) 81 % (31-73) Lymphocytes (%) (Auto) 12 % (24-48) Monocytes (%) (Auto) 7 % (0-9) Eosinophils (%) (Auto) 0 % (0-3) Basophils (%) (Auto) 1 % (0-3) Neutrophils # (Auto) 9.7 x10^3/uL (1.8-7.7) Lymphocytes # (Auto) 1.4 x10^3/uL (1.0-4.8) Monocytes # (Auto) 0.8 x10^3/uL (0.0-1.1) Eosinophils # (Auto) 0.0 x10^3/uL (0.0-0.7) Basophils # (Auto) 0.1 x10^3/uL (0.0-0.2) Prothrombin Time 14.4 SEC (11.7-14.0) Prothromb Time International Ratio 1.2 (0.8-1.1) Activated Partial Thromboplast Time 38 SEC (24-38) Sodium Level 139 mmol/L (136-145) Potassium Level 4.3 mmol/L (3.5-5.1) Chloride Level 106 mmol/L (98-107) Carbon Dioxide Level 24 mmol/L (21-32) Anion Gap 9 (6-14) Blood Urea Nitrogen 48 mg/dL (8-26) Creatinine 1.3 mg/dL (0.7-1.3) Estimated GFR (Cockcroft-Gault) 54.1 BUN/Creatinine Ratio 37 (6-20) Glucose Level 148 mg/dL (70-99) Lactic Acid Level 2.1 mmol/L (0.4-2.0) 1.0 mmol/L (0.4-2.0) Calcium Level 8.5 mg/dL (8.5-10.1) Magnesium Level 2.0 mg/dL (1.8-2.4) Total Bilirubin 0.4 mg/dL (0.2-1.0) Aspartate Amino Transf (AST/SGOT) 17 U/L (15-37) Alanine Aminotransferase (ALT/SGPT) 14 U/L (16-63) Alkaline Phosphatase 130 U/L (46-116) Creatine Kinase 148 U/L (39-308) Troponin I Quantitative < 0.017 ng/mL (0.000-0.055) BE-Gvm-Q-Type Natriuretic Peptide 92 pg/mL (0-124) Total Protein 6.2 g/dL (6.4-8.2) Albumin 2.6 g/dL (3.4-5.0) Albumin/Globulin Ratio 0.7 (1.0-1.7) Lipase 45 U/L (73-393) Procalcitonin < 0.10 ng/mL (0.00-0.10) Urine Collection Type U cath Urine Color Yellow Urine Clarity Clear Urine pH 6.5 Urine Specific [place] 1.015 Urine Protein Negative mg/dL (NEG-TRACE) Urine Glucose (UA) Negative mg/dL (NEG) Urine Ketones (Stick) Negative mg/dL (NEG) Urine Blood Negative (NEG) Urine Nitrite Negative (NEG) Urine Bilirubin Negative (NEG) Urine Urobilinogen Dipstick 1.0 mg/dL (0.2 mg/dL) Urine Leukocyte Esterase Trace (NEG) Urine RBC 1-2 /HPF (0-2) Urine WBC 5-10 /HPF (0-4) Urine Squamous Epithelial Cells Occ /LPF Urine Transitional Epithelial Cells Occ /LPF Urine Bacteria 0 /HPF (0-FEW) Urine Hyaline Casts Few /HPF Urine Mucus Slight /LPF Urine Opiates Screen Pos (NEG) Urine Methadone Screen Neg (NEG) Urine Barbiturates Neg (NEG) Urine Phencyclidine Screen Neg (NEG) Urine Amphetamine/Methamphetamine Neg (NEG) Urine Benzodiazepines Screen Neg (NEG) Urine Cocaine Screen Neg (NEG) Urine Cannabinoids Screen Neg (NEG) Urine Ethyl Alcohol Neg (NEG) O2 Saturation 92 % (92-99) Arterial Blood pH 7.44 (7.35-7.45) Arterial Blood pCO2 at Patient Temp 33 mmHg (35-46) Arterial Blood pO2 at Patient Temp 64 mmHg (65-108) Arterial Blood HCO3 22 mmol/L (21-28) Arterial Blood Base Excess -1 mmol/L (-3-3) Oxyhemoglobin 91.2 % Methemoglobin 0.4 % (0.0-1.9) Carbon Monoxide, Quantitative 0.3 % (0.0-1.9) FiO2 21 Test 07/26/19 03:20 Erythrocyte Sedimentation Rate 28 (0-15) Vitamin B12 Level 246 pg/mL (247-911) Thyroid Stimulating Hormone (TSH) 0.177 uIU/mL (0.358-3.74) Objective Assessment pt seen, consult dictated Plan Plan of Care / QUINTEN VIVEROS MD Jul 26, 2019 11:53
--- NOTE | 2019-07-26 13:16 | PDOC ---
[employer] PROGRESS NOTE Chief Complaint Chief Complaint 1. Acute mental status change suspect infectious cause 2. leukocytosis POSSIBLE SEPSIS 3. cognitive decline x months Mild foci of decreased aeration withinthe hemispheric white matter, most often due to chronic microvascular ischemia. ct head 07/25 4. severe protein-caloric malnutrition 5. HX copd, remote heavy tobacco abuse, MILD HYPOXIA ON ABG 6. abnormal weight loss, recent 7. NORMOCYTIC ANEMIA History of Present Illness History of Present Illness 07/26/19 Patient seen and examined Patient doing well today Patient doesn't have new complaints DW RN Vitals/I&O Vitals/I&O: Vital Signs Date Time Temp Pulse Resp B/P (MAP) Pulse Ox O2 Delivery O2 Flow Rate FiO2 07/26/19 12:04 92 Room Air 07/26/19 11:00 98.0 85 18 100/55 (70) 98.0 I & O 07/25/19 07/25/19 07/26/19 15:00 23:00 07:00 Intake Total 1000 ml 50 ml Output Total 1700 ml Balance 1000 ml 50 ml -1700 ml Physical Exam General: Cooperative, No acute distress Heart: Regular rate, Normal S1, Normal S2 Lungs: Clear Abdomen: Soft, No tenderness, Other (thin) Extremities: No clubbing Labs Labs: Laboratory Tests Test 07/25/19 15:33 07/25/19 15:45 07/25/19 16:05 07/26/19 03:20 Urine Collection Type U cath Urine Color Yellow Urine Clarity Clear Urine pH 6.5 Urine Specific [place] 1.015 Urine Protein Negative mg/dL (NEG-TRACE) Urine Glucose (UA) Negative mg/dL (NEG) Urine Ketones (Stick) Negative mg/dL (NEG) Urine Blood Negative (NEG) Urine Nitrite Negative (NEG) Urine Bilirubin Negative (NEG) Urine Urobilinogen Dipstick 1.0 mg/dL (0.2 mg/dL) Urine Leukocyte Esterase Trace (NEG) Urine RBC 1-2 /HPF (0-2) Urine WBC 5-10 /HPF (0-4) Urine Squamous Epithelial Cells Occ /LPF Urine Transitional Epithelial Cells Occ /LPF Urine Bacteria 0 /HPF (0-FEW) Urine Hyaline Casts Few /HPF Urine Mucus Slight /LPF Urine Opiates Screen Pos (NEG) Urine Methadone Screen Neg (NEG) Urine Barbiturates Neg (NEG) Urine Phencyclidine Screen Neg (NEG) Urine Amphetamine/Methamphetamine Neg (NEG) Urine Benzodiazepines Screen Neg (NEG) Urine Cocaine Screen Neg (NEG) Urine Cannabinoids Screen Neg (NEG) Urine Ethyl Alcohol Neg (NEG) O2 Saturation 92 % (92-99) Arterial Blood pH 7.44 (7.35-7.45) Arterial Blood pCO2 at Patient Temp 33 mmHg (35-46) Arterial Blood pO2 at Patient Temp 64 mmHg (65-108) Arterial Blood HCO3 22 mmol/L (21-28) Arterial Blood Base Excess -1 mmol/L (-3-3) Oxyhemoglobin 91.2 % Methemoglobin 0.4 % (0.0-1.9) Carbon Monoxide, Quantitative 0.3 % (0.0-1.9) FiO2 21 Lactic Acid Level 1.0 mmol/L (0.4-2.0) Erythrocyte Sedimentation Rate 28 (0-15) Vitamin B12 Level 246 pg/mL (247-911) Thyroid Stimulating Hormone (TSH) 0.177 uIU/mL (0.358-3.74) Review of Systems Review of Systems: Denies N/V Denies numbness and tingling Assessment and Plan Assessmemt and Plan Problems Medical Problems: (1) Altered level of consciousness Status: Acute (2) Anemia Status: Acute (3) Dehydration Status: Acute (4) Elevated lactic acid level Status: Acute (5) Hypoalbuminemia Status: Acute (6) Hypotension Status: Acute (7) Urinary tract infection Status: Acute Assessment 1. Acute mental status change suspect infectious cause 2. leukocytosis POSSIBLE SEPSIS 3. cognitive decline x months Mild foci of decreased aeration withinthe hemispheric white matter, most often due to chronic microvascular ischemia. ct head 07/25 4. severe protein-caloric malnutrition 5. HX copd, remote heavy tobacco abuse, MILD HYPOXIA ON ABG 6. abnormal weight loss, recent 7. NORMOCYTIC ANEMIA plan ID following Neuro following Monitor cardio trend labs procalcitonin DVT PROPHYLAXIS IV FLUID SUPPORT NEUROCHECKS Q 4 HRS Comment Review of Relevant I have reviewed the following items torie (where applicable) has been applied. Medications: Current Medications Medications (Trade) Dose Ordered Sig/Lesly Route PRN Reason Start Time Stop Time Status Last Admin Dose Admin Ceftriaxone Sodium (Rocephin) 1 gm 1X ONCE IVP 07/25/19 15:00 07/25/19 15:01 DC 07/25/19 15:29 Piperacillin Sod/ Tazobactam Sod 3.375 gm/Sodium Chloride 50 ml @ 100 mls/hr Q6HRS IV 07/26/19 00:00 07/26/19 11:47 Sodium Chloride 1,000 ml @ 150 mls/hr Q6H40M IV 07/25/19 15:13 07/26/19 15:12 07/26/19 11:46 Fentanyl Citrate (Fentanyl 2ml Vial) 50 mcg 1X ONCE IVP 07/25/19 15:15 07/25/19 15:20 DC 07/25/19 15:42 Piperacillin Sod/ Tazobactam Sod 3.375 gm/Sodium Chloride 50 ml @ 100 mls/hr 1X ONCE IV 07/25/19 16:00 07/25/19 16:29 DC 07/25/19 15:30 Acetaminophen (Tylenol) 650 mg PRN Q4HRS PRN PO TEMP OVER 100.4F OR MILD PAIN 07/25/19 16:45 07/25/19 22:15 Albuterol/ Ipratropium (Duoneb) 3 ml Q4HRS NEB 07/25/19 20:00 07/26/19 12:03 Enoxaparin Sodium (Lovenox 40mg Syringe) 40 mg DAILY SQ 07/26/19 09:00 07/26/19 08:46 Donepezil HCl (Aricept) 10 mg DAILY PO 07/26/19 09:00 07/26/19 08:46 Memantine (Namenda) 5 mg DAILY PO 07/26/19 09:00 08/01/19 09:01 07/26/19 08:46 Gabapentin (Neurontin) 200 mg BID PO 07/26/19 09:00 07/26/19 08:46 Gabapentin (Neurontin) 200 mg 1X ONCE PO 07/25/19 20:15 07/25/19 20:16 DC 07/25/19 20:10 Morphine Sulfate (Morphine Sulfate) 2 mg PRN Q4HRS PRN IV SEVERE PAIN 7-10 07/26/19 00:30 07/26/19 10:33 MOISES CAVAZOS III DO Jul 26, 2019 13:16
--- NOTE | 2019-07-26 13:16 | PDOC ---
PROGRESS NOTES Assessment Problems Medical Problems: (1) Altered level of consciousness Status: Acute (2) Anemia Status: Acute (3) Dehydration Status: Acute (4) Elevated lactic acid level Status: Acute (5) Hypoalbuminemia Status: Acute (6) Hypotension Status: Acute (7) Urinary tract infection Status: Acute Dementia, consistent with Alzheimer's Hypotension and falls, I doubt that he's had a stroke, I see no evidence of vestibular abnormality, myelopathy, radiculopathy, or neuropathy. I don't see any evidence of acute central nervous system infection. Note leukocytosis, lactic acidosis History of trigeminal neuralgia Slightly elevated sedimentation rate Low B12 level Low TSH level Plan Repeat the head CT tomorrow Hold on lumbar puncture Resumed donepezil Added memantine B12 injections Thyroid profile Hold on temporal artery biopsy Subjective Complains of itching in the face Objective Vital Signs Date Time Temp Pulse Resp B/P (MAP) Pulse Ox O2 Delivery O2 Flow Rate FiO2 07/26/19 12:04 92 Room Air 07/26/19 11:00 98.0 85 18 100/55 (70) 98.0 Intake and Output 07/26/19 07:00 Intake Total 1050 ml Output Total 1700 ml Balance -650 ml IV Total 1050 ml Output Urine Total 1700 ml PHYSICAL EXAM Alert. Knows location, not date, not name of president, names and repeats well, speech fluent PERRL. EOMI. CN: no focal findings. Muscle tone: normal. Muscle strength: 5/5 DTR: 2+ Plantar reflex: flexor Gait: not examined in bed. Sensory exam: no abnormal findings. No cerebellar signs elicited. Bilateral grasp reflexes Review of Relevant I have reviewed the following items torie (where applicable) has been applied. Labs Laboratory Tests Test 07/25/19 12:45 07/25/19 15:33 07/25/19 15:45 07/25/19 16:05 White Blood Count 11.9 x10^3/uL (4.0-11.0) Red Blood Count 3.09 x10^6/uL (4.30-5.70) Hemoglobin 9.7 g/dL (13.0-17.5) Hematocrit 28.6 % (39.0-53.0) Mean Corpuscular Volume 93 fL (79-100) Mean Corpuscular Hemoglobin 31 pg (25-35) Mean Corpuscular Hemoglobin Concent 34 g/dL (31-37) Red Cell Distribution Width 15.0 % (11.5-14.5) Platelet Count 162 x10^3/uL (140-400) Neutrophils (%) (Auto) 81 % (31-73) Lymphocytes (%) (Auto) 12 % (24-48) Monocytes (%) (Auto) 7 % (0-9) Eosinophils (%) (Auto) 0 % (0-3) Basophils (%) (Auto) 1 % (0-3) Neutrophils # (Auto) 9.7 x10^3/uL (1.8-7.7) Lymphocytes # (Auto) 1.4 x10^3/uL (1.0-4.8) Monocytes # (Auto) 0.8 x10^3/uL (0.0-1.1) Eosinophils # (Auto) 0.0 x10^3/uL (0.0-0.7) Basophils # (Auto) 0.1 x10^3/uL (0.0-0.2) Prothrombin Time 14.4 SEC (11.7-14.0) Prothromb Time International Ratio 1.2 (0.8-1.1) Activated Partial Thromboplast Time 38 SEC (24-38) Sodium Level 139 mmol/L (136-145) Potassium Level 4.3 mmol/L (3.5-5.1) Chloride Level 106 mmol/L (98-107) Carbon Dioxide Level 24 mmol/L (21-32) Anion Gap 9 (6-14) Blood Urea Nitrogen 48 mg/dL (8-26) Creatinine 1.3 mg/dL (0.7-1.3) Estimated GFR (Cockcroft-Gault) 54.1 BUN/Creatinine Ratio 37 (6-20) Glucose Level 148 mg/dL (70-99) Lactic Acid Level 2.1 mmol/L (0.4-2.0) 1.0 mmol/L (0.4-2.0) Calcium Level 8.5 mg/dL (8.5-10.1) Magnesium Level 2.0 mg/dL (1.8-2.4) Total Bilirubin 0.4 mg/dL (0.2-1.0) Aspartate Amino Transf (AST/SGOT) 17 U/L (15-37) Alanine Aminotransferase (ALT/SGPT) 14 U/L (16-63) Alkaline Phosphatase 130 U/L (46-116) Creatine Kinase 148 U/L (39-308) Troponin I Quantitative < 0.017 ng/mL (0.000-0.055) GC-Omb-Z-Type Natriuretic Peptide 92 pg/mL (0-124) Total Protein 6.2 g/dL (6.4-8.2) Albumin 2.6 g/dL (3.4-5.0) Albumin/Globulin Ratio 0.7 (1.0-1.7) Lipase 45 U/L (73-393) Procalcitonin < 0.10 ng/mL (0.00-0.10) Urine Collection Type U cath Urine Color Yellow Urine Clarity Clear Urine pH 6.5 Urine Specific [place] 1.015 Urine Protein Negative mg/dL (NEG-TRACE) Urine Glucose (UA) Negative mg/dL (NEG) Urine Ketones (Stick) Negative mg/dL (NEG) Urine Blood Negative (NEG) Urine Nitrite Negative (NEG) Urine Bilirubin Negative (NEG) Urine Urobilinogen Dipstick 1.0 mg/dL (0.2 mg/dL) Urine Leukocyte Esterase Trace (NEG) Urine RBC 1-2 /HPF (0-2) Urine WBC 5-10 /HPF (0-4) Urine Squamous Epithelial Cells Occ /LPF Urine Transitional Epithelial Cells Occ /LPF Urine Bacteria 0 /HPF (0-FEW) Urine Hyaline Casts Few /HPF Urine Mucus Slight /LPF Urine Opiates Screen Pos (NEG) Urine Methadone Screen Neg (NEG) Urine Barbiturates Neg (NEG) Urine Phencyclidine Screen Neg (NEG) Urine Amphetamine/Methamphetamine Neg (NEG) Urine Benzodiazepines Screen Neg (NEG) Urine Cocaine Screen Neg (NEG) Urine Cannabinoids Screen Neg (NEG) Urine Ethyl Alcohol Neg (NEG) O2 Saturation 92 % (92-99) Arterial Blood pH 7.44 (7.35-7.45) Arterial Blood pCO2 at Patient Temp 33 mmHg (35-46) Arterial Blood pO2 at Patient Temp 64 mmHg (65-108) Arterial Blood HCO3 22 mmol/L (21-28) Arterial Blood Base Excess -1 mmol/L (-3-3) Oxyhemoglobin 91.2 % Methemoglobin 0.4 % (0.0-1.9) Carbon Monoxide, Quantitative 0.3 % (0.0-1.9) FiO2 21 Test 07/26/19 03:20 Erythrocyte Sedimentation Rate 28 (0-15) Vitamin B12 Level 246 pg/mL (247-911) Thyroid Stimulating Hormone (TSH) 0.177 uIU/mL (0.358-3.74) Laboratory Tests Test 07/25/19 15:33 07/25/19 15:45 07/25/19 16:05 07/26/19 03:20 Urine Collection Type U cath Urine Color Yellow Urine Clarity Clear Urine pH 6.5 Urine Specific [place] 1.015 Urine Protein Negative mg/dL (NEG-TRACE) Urine Glucose (UA) Negative mg/dL (NEG) Urine Ketones (Stick) Negative mg/dL (NEG) Urine Blood Negative (NEG) Urine Nitrite Negative (NEG) Urine Bilirubin Negative (NEG) Urine Urobilinogen Dipstick 1.0 mg/dL (0.2 mg/dL) Urine Leukocyte Esterase Trace (NEG) Urine RBC 1-2 /HPF (0-2) Urine WBC 5-10 /HPF (0-4) Urine Squamous Epithelial Cells Occ /LPF Urine Transitional Epithelial Cells Occ /LPF Urine Bacteria 0 /HPF (0-FEW) Urine Hyaline Casts Few /HPF Urine Mucus Slight /LPF Urine Opiates Screen Pos (NEG) Urine Methadone Screen Neg (NEG) Urine Barbiturates Neg (NEG) Urine Phencyclidine Screen Neg (NEG) Urine Amphetamine/Methamphetamine Neg (NEG) Urine Benzodiazepines Screen Neg (NEG) Urine Cocaine Screen Neg (NEG) Urine Cannabinoids Screen Neg (NEG) Urine Ethyl Alcohol Neg (NEG) O2 Saturation 92 % (92-99) Arterial Blood pH 7.44 (7.35-7.45) Arterial Blood pCO2 at Patient Temp 33 mmHg (35-46) Arterial Blood pO2 at Patient Temp 64 mmHg (65-108) Arterial Blood HCO3 22 mmol/L (21-28) Arterial Blood Base Excess -1 mmol/L (-3-3) Oxyhemoglobin 91.2 % Methemoglobin 0.4 % (0.0-1.9) Carbon Monoxide, Quantitative 0.3 % (0.0-1.9) FiO2 21 Lactic Acid Level 1.0 mmol/L (0.4-2.0) Erythrocyte Sedimentation Rate 28 (0-15) Vitamin B12 Level 246 pg/mL (247-911) Thyroid Stimulating Hormone (TSH) 0.177 uIU/mL (0.358-3.74) Microbiology 07/25/19 Blood Culture - Preliminary, Resulted NO GROWTH AFTER 1 DAY Medications Current Medications Sodium Chloride 1,000 ml @ 1,000 mls/hr Q1H IV Last administered on 07/25/19at 12:34; Start 07/25/19 at 12:34; Stop 07/25/19 at 13:33; Status DC Ceftriaxone Sodium (Rocephin) 1 gm 1X ONCE IVP Last administered on 07/25/19at 15:29; Start 07/25/19 at 15:00; Stop 07/25/19 at 15:01; Status DC Piperacillin Sod/ Tazobactam Sod 3.375 gm/Sodium Chloride 50 ml @ 100 mls/hr Q6HRS IV Last administered on 07/26/19at 11:47; Start 07/26/19 at 00:00 Sodium Chloride 1,000 ml @ 150 mls/hr Q6H40M IV Last administered on 07/26/19at 11:46; Start 07/25/19 at 15:13; Stop 07/26/19 at 15:12 Fentanyl Citrate (Fentanyl 2ml Vial) 50 mcg 1X ONCE IVP Last administered on 07/25/19at 15:42; Start 07/25/19 at 15:15; Stop 07/25/19 at 15:20; Status DC Piperacillin Sod/ Tazobactam Sod 3.375 gm/Sodium Chloride 50 ml @ 100 mls/hr 1X ONCE IV Last administered on 07/25/19at 15:30; Start 07/25/19 at 16:00; Stop 07/25/19 at 16:29; Status DC Sodium Chloride (Normal Saline Flush) 3 ml QSHIFT PRN IV AFTER MEDS AND BLOOD DRAWS; Start 07/25/19 at 16:45 Sodium Chloride 1,000 ml @ 70 mls/hr [id number] IV ; Start 07/25/19 at 16:32 Ondansetron HCl (Zofran) 4 mg PRN Q4HRS PRN IV NAUSEA/VOMITING; Start 07/25/19 at 16:45 Acetaminophen (Tylenol) 650 mg PRN Q4HRS PRN PO TEMP OVER 100.4F OR MILD PAIN Last administered on 07/25/19at 22:15; Start 07/25/19 at 16:45 Sodium Monofluorophosphate (Fleet Adult) 133 ml PRN DAILY PRN VT CONSTIPATION; Start 07/25/19 at 16:45 Docusate Sodium (Colace) 100 mg PRN BID PRN PO CONSTIPATION; Start 07/25/19 at 16:45 Albuterol/ Ipratropium (Duoneb) 3 ml Q4HRS NEB Last administered on 07/26/19at 12:03; Start 07/25/19 at 20:00 Guaifenesin (Robitussin) 200 mg PRN Q4HRS PRN PO COUGH; Start 07/25/19 at 16:45 Lorazepam (Ativan) 0.5 mg PRN Q4HRS PRN PO ANXIETY / AGITATION; Start 07/25/19 at 16:45 Enoxaparin Sodium (Lovenox 40mg Syringe) 40 mg DAILY SQ Last administered on 07/26/19at 08:46; Start 07/26/19 at 09:00 Donepezil HCl (Aricept) 10 mg DAILY PO Last administered on 07/26/19at 08:46; Start 07/26/19 at 09:00 Memantine (Namenda) 5 mg DAILY PO Last administered on 07/26/19at 08:46; Start 07/26/19 at 09:00; Stop 08/01/19 at 09:01 Memantine (Namenda) 5 mg BID PO ; Start 08/02/19 at 09:00 Gabapentin (Neurontin) 200 mg 1X PO ; Start 07/25/19 at 19:15; Stop 07/25/19 at 20:05; Status DC Gabapentin (Neurontin) 200 mg BID PO Last administered on 07/26/19at 08:46; Sta rt 07/26/19 at 09:00 Gabapentin (Neurontin) 200 mg 1X ONCE PO Last administered on 07/25/19at 20:10; Start 07/25/19 at 20:15; Stop 07/25/19 at 20:16; Status DC Morphine Sulfate (Morphine Sulfate) 2 mg PRN Q4HRS PRN IV SEVERE PAIN 7-10 Last administered on 07/26/19at 10:33; Start 07/26/19 at 00:30 Lactobacillus Rhamnosus (Culturelle) 1 cap BID PO ; Start 07/26/19 at 21:00 Active Scripts Active [place] 5-325 Tablet (Acetaminophen/Hydrocodone Bitart) 1 Each Tablet 1-2 Each PO PRN Q6HRS PRN as needed for pain Vitals/I & O Vital Sign - Last 24 Hours 07/25/19 07/25/19 07/25/19 07/25/19 13:19 13:36 13:56 14:16 Pulse 100 90 90 88 Resp 18 18 18 18 Pulse Ox 95 96 96 95 07/25/19 07/25/19 07/25/19 07/25/19 14:36 14:56 15:16 15:36 Pulse 88 94 100 92 Resp 18 18 18 18 Pulse Ox 97 97 94 97 07/25/19 07/25/19 07/25/19 07/25/19 15:42 18:00 19:57 20:05 Temp 99.0 98.2 99.0 98.2 Pulse 91 92 Resp 18 18 16 B/P (MAP) 115/69 (84) 102/63 (76) Pulse Ox 96 97 96 O2 Delivery Room Air Room Air Room Air Room Air 07/25/19 07/25/19 07/26/19 07/26/19 23:32 23:58 00:44 00:58 Temp 98.4 98.4 Pulse 87 Resp 18 B/P (MAP) 92/55 (67) 94/57 (69) Pulse Ox 97 94 O2 Delivery Room Air Room Air Room Air 07/26/19 07/26/19 07/26/19 07/26/19 03:18 03:27 03:48 07:00 Temp 98.3 97.6 98.3 97.6 Pulse 75 68 Resp 18 18 B/P (MAP) 77/43 (54) 96/62 (73) 108/56 (73) Pulse Ox 97 92 O2 Delivery Room Air Room Air Room Air 07/26/19 07/26/19 07/26/19 07/26/19 08:25 10:33 11:00 11:03 Temp 98.0 98.0 Pulse 85 Resp 18 B/P (MAP) 100/55 (70) Pulse Ox 93 93 95 93 O2 Delivery Room Air Room Air Room Air Room Air 07/26/19 12:04 Pulse Ox 92 O2 Delivery Room Air Intake and Output 07/25/19 07/25/19 07/26/19 15:00 23:00 07:00 Intake Total 1000 ml 50 ml Output Total 1700 ml Balance 1000 ml 50 ml -1700 ml HAROON MCQUEEN MD Jul 26, 2019 13:16
[2019-07-26] MEDS ORDERED: CYANOCOBALAMIN (VITAMIN B-12) 1,000 MCG/ML VIAL IM ONE (13:30)
--- NOTE | 2019-07-26 14:52 | CONS ---
DATE OF CONSULTATION: 07/26/2019 REQUESTING PHYSICIAN: Dr. Norris. REASON FOR CONSULTATION: Altered mental status, possible sepsis. HISTORY OF PRESENT ILLNESS: This is a 73-year-old gentleman with history of dementia who was brought in because of low blood pressure and confusion and some dizziness. The patient was admitted. The patient had lactic acid 2.1. Leukocyte count was 11.9. The patient was given a dose of Rocephin and then Zosyn and consult has been requested. The patient is evaluated by Neurology also and the patient has dementia. The patient appears to be that he was dehydrated with BUN and creatinine ratio in favor of dehydration. The patient is alert, awake, now he is able to communicate, does have dementia, but able to talk and make sense. He is complaining of some foot pain. Other than that, he has no other complaints. Denies nausea, vomiting, diarrhea, chest pain, shortness of breath, or abdominal pain. PAST MEDICAL HISTORY: Positive for dementia, hyperlipidemia, trigeminal neuralgia, benign prostatic hypertrophy, history of depression, history of urinary retention. SOCIAL HISTORY: Negative for smoking, alcohol, illicit drug use. ALLERGIES: No known drug allergies. CURRENT MEDICATIONS: Reviewed. REVIEW OF SYSTEMS: As per HPI, all other systems reviewed are negative. PHYSICAL EXAMINATION: GENERAL: Alert and oriented gentleman, not in distress. VITAL SIGNS: Stable, afebrile. HEENT: NAD. NECK: Supple. No JVP, no lymphadenopathy. LUNGS: Clear. HEART: S1, S2 regular. ABDOMEN: Benign. EXTREMITIES: No edema or cyanosis. SKIN: Unremarkable. NEUROLOGIC: The patient is neurologically alert, awake, able to communicate simple things, but memory is poor. LABORATORY DATA: White count is 11.9. BUN and creatinine is 48 and 1.3. Lactic acid 2.1, which is down to 1.0. Urinalysis unremarkable for infection. Chest x-ray unremarkable. CT of the head was not showing any acute changes. IMPRESSION: 1. Dehydration. 2. Hypotension secondary to #1. 3. Very slight lactic acidosis secondary to #1. 4. Leukocytosis, most likely reactive. No evidence for infection. 5. Dementia. RECOMMENDATIONS: We will discontinue antibiotics, supportive care, hydration, and the patient can be discharged to nursing facility from the infectious disease standpoint of view. Thank you very much, Dr. Norris, for giving me the opportunity to participate in this patient's care. QUINTEN VIVEROS MD DR: MERI/antonio JOB#: [id number] / [id number]
--- NOTE | 2019-07-26 15:29 | NUR ---
SS following for discharge planning. SS reviewed pt chart. Pt is from home and is currently on room air. PT/OT recommended jail unit. SS met with pt to discuss discharge planning and jail unit and discharge planning. Pt reported that he will be going to live with his sister, Lynnette, , after discharge. SS spoke with pt's sister, Lynnette, and she requested that referral for jail unit be phoned and faxed to [facility], ; fax [phone]. Pt's sister reported that pt needs therapy due to falls prior to coming home. SS contacted [facility] [place] and was notified that they are in network with [facility]. SS phoned and faxed referral. SS will await acceptance decision and insurance determination and will proceed accordingly with discharge planning.
[2019-07-26] MEDS ORDERED: FINA5TAB4 PO (18:05)
[2019-07-26] MEDS ORDERED: GABA300C18 PO (18:05)
[2019-07-26] MEDS ORDERED: AMIT25TA PO (18:05)
[2019-07-26] MEDS ORDERED: POTA20TA4 PO (18:05)
[2019-07-26] MEDS ORDERED: DONE10TA7 PO (18:05)
[2019-07-26] MEDS ORDERED: CHOL500021 PO (18:05)
[2019-07-26] MEDS ORDERED: TAMS0.4C97 PO (18:05)
[2019-07-26] MEDS ORDERED: VENL75TA PO (18:05)
[2019-07-26] MEDS ORDERED: MORP-15 PO (18:05)
[2019-07-26] MEDS: ACETAMINOPHEN 325 MG TABLET. PO PRN (20:49)
[2019-07-26] MEDS: LACTOBACILLUS RHAMNOSUS GG 1 CAPSULE. PO SCH (20:49)
[2019-07-27] VITALS (11 sets, daily range): BP systolic 83–111; BP diastolic 46–86
[2019-07-27] MEDS: LORazepam 0.5 MG TABLET PO PRN (00:21)
[2019-07-27] MEDS: MORPHINE SULFATE 2 MG/ML VIAL. IV PRN (00:21)
[2019-07-27] MEDS: IPRATRPIUM/ALBUTEROL 0.5/2.5MG 3 ML NEBU. NEB SCH ×5 (03:28→19:50)
[2019-07-27 04:15] LABS: CALCIUM 7.9 mg/dL (8.5-10.1); GFR 73.2; POTASSIUM 3.8 mmol/L (3.5-5.1)
[2019-07-27 05:10] LABS: BASO # 0.1 x10^3/uL (0.0-0.2); BASO % 1 % (0-3); EOS # 0.1 x10^3/uL (0.0-0.7); EOS % 1 % (0-3); LYMPH # 2.4 x10^3/uL (1.0-4.8); LYMPH % 34 % (24-48); MEAN CORPUSCULAR HEMOGLOBIN 32 pg (25-35); MEAN CORPUSCULAR HGB CONC 34 g/dL (31-37); MEAN CORPUSCULAR VOLUME 93 fL (79-100); MONO # 0.6 x10^3/uL (0.0-1.1); MONO % 8 % (0-9); NEUT # 3.9 x10^3/uL (1.8-7.7); NEUT % 55 % (31-73); PLATELET COUNT 141 x10^3/uL (140-400); RED BLOOD COUNT 2.02 x10^6/uL (4.30-5.70); RED CELL DISTRIBUTION WIDTH 15.6 % (11.5-14.5); WHITE BLOOD COUNT 7.1 x10^3/uL (4.0-11.0)
[2019-07-27 05:12] LABS: HEMATOCRIT 18.9 % (39.0-53.0); HEMOGLOBIN 6.4 g/dL (13.0-17.5)
[2019-07-27] MEDS ORDERED: CYANOCOBALAMIN (VITAMIN B-12) 1,000 MCG/ML VIAL IM SCH (09:00)
[2019-07-27] MEDS: ENOXAPARIN 40 MG/0.4 ML SYRINGE. SQ SCH (09:00)
[2019-07-27] MEDS: LACTOBACILLUS RHAMNOSUS GG 1 CAPSULE. PO SCH ×2 (09:18→21:00)
[2019-07-27] MEDS: MEMANTINE 5 MG TABLET. PO SCH (09:18)
[2019-07-27] MEDS: GABAPENTIN 100 MG CAPSULE. PO SCH (09:18)
[2019-07-27] MEDS: DONEPEZIL HCL 10 MG TABLET. PO SCH (09:18)
--- NOTE | 2019-07-27 09:19 | RAD ---
RS Compliance Statement: One or more of the following individualized dose reduction techniques were utilized for this examination: 1. Automated exposure control 2. Adjustment of the mA and/or kV according to patient size 3. Use of iterative reconstruction technique CT head without contrast 07/27/2019 8:00 AM INDICATION: Altered mental status COMPARISON: CT head 07/25/2019 TECHNIQUE: Multiple axial CT images of the head were obtained from skull base through the vertex without intravenous contrast. FINDINGS: Head: Ventricles, sulci and basal cisterns are within normal limits. There is no hydrocephalus. Napoles-white matter differentiation is normal. There is no acute intracranial hemorrhage. There is no mass, mass effect or midline shift. Visualized portions of the orbits are normal. Paranasal sinuses are well aerated. Mastoid air cells are well aerated. Stable right retrosigmoid craniotomy changes are present. Minimal hypoattenuation along the right superior cerebellum posteriorly may reflect subjacent encephalomalacia, stable from the prior examination.. IMPRESSION: No acute intracranial hemorrhage. Stable postoperative changes from right retrosigmoid craniotomy. Electronically signed by: Sarahi Estevez MD (07/27/2019 9:16 AM) [id number]
--- NOTE | 2019-07-27 10:44 | PDOC ---
Infectious Disease Note Subjective Subjective pt is awake, says ready to go home ROS ROS no n/v/d/sob Vital Sign Vital Signs Vital Signs Date Time Temp Pulse Resp B/P (MAP) Pulse Ox O2 Delivery O2 Flow Rate FiO2 07/27/19 08:11 103 101/58 (72) 07/27/19 07:37 93 Room Air 07/27/19 06:41 97.8 18 97.8 Physical Exam PHYSICAL EXAM GENERAL: Alert and oriented gentleman, not in distress. VITAL SIGNS: Stable, afebrile. HEENT: NAD. NECK: Supple. No JVP, no lymphadenopathy. LUNGS: Clear. HEART: S1, S2 regular. ABDOMEN: Benign. EXTREMITIES: No edema or cyanosis. SKIN: Unremarkable. NEUROLOGIC: The patient is neurologically alert, awake, able to communicate simple things, but memory is poor. Labs Lab Laboratory Tests Test 07/27/19 03:45 07/27/19 05:04 Sodium Level 143 mmol/L (136-145) Potassium Level 3.8 mmol/L (3.5-5.1) Chloride Level 110 mmol/L (98-107) Carbon Dioxide Level 24 mmol/L (21-32) Anion Gap 9 (6-14) Blood Urea Nitrogen 31 mg/dL (8-26) Creatinine 1.0 mg/dL (0.7-1.3) Estimated GFR (Cockcroft-Gault) 73.2 Glucose Level 138 mg/dL (70-99) Calcium Level 7.9 mg/dL (8.5-10.1) White Blood Count 7.1 x10^3/uL (4.0-11.0) Red Blood Count 2.02 x10^6/uL (4.30-5.70) Hemoglobin 6.4 g/dL (13.0-17.5) Hematocrit 18.9 % (39.0-53.0) Mean Corpuscular Volume 93 fL (79-100) Mean Corpuscular Hemoglobin 32 pg (25-35) Mean Corpuscular Hemoglobin Concent 34 g/dL (31-37) Red Cell Distribution Width 15.6 % (11.5-14.5) Platelet Count 141 x10^3/uL (140-400) Neutrophils (%) (Auto) 55 % (31-73) Lymphocytes (%) (Auto) 34 % (24-48) Monocytes (%) (Auto) 8 % (0-9) Eosinophils (%) (Auto) 1 % (0-3) Basophils (%) (Auto) 1 % (0-3) Neutrophils # (Auto) 3.9 x10^3/uL (1.8-7.7) Lymphocytes # (Auto) 2.4 x10^3/uL (1.0-4.8) Monocytes # (Auto) 0.6 x10^3/uL (0.0-1.1) Eosinophils # (Auto) 0.1 x10^3/uL (0.0-0.7) Basophils # (Auto) 0.1 x10^3/uL (0.0-0.2) Micro Microbiology 07/25/19 Urine Culture - Final, Complete 07/25/19 Urine Culture Result 1 (TERE) - Final, Complete 07/25/19 Blood Culture - Preliminary, Resulted NO GROWTH AFTER 1 DAY Objective Assessment IMPRESSION: 1. Dehydration. 2. Hypotension secondary to #1. 3. Very slight lactic acidosis secondary to #1. 4. Leukocytosis, most likely reactive. No evidence for infection. 5. Dementia. Plan Plan of Care supportive care, hydration, and the patient can be discharged to nursing facility from the infectious disease standpoint of view. QUINTEN VIVEROS MD Jul 27, 2019 10:44
--- NOTE | 2019-07-27 11:10 | PDOC ---
[employer] PROGRESS NOTE Chief Complaint Chief Complaint 1. Acute mental status change suspect infectious cause 2. leukocytosis POSSIBLE SEPSIS 3. cognitive decline x months Mild foci of decreased aeration withinthe hemispheric white matter, most often due to chronic microvascular ischemia. ct head 07/25 4. severe protein-caloric malnutrition 5. HX copd, remote heavy tobacco abuse, MILD HYPOXIA ON ABG 6. abnormal weight loss, recent 7. NORMOCYTIC ANEMIA History of Present Illness History of Present Illness 07/27/19 Patient seen and examined complains of right rib pain Gross hematuria this morning DW RN 07/26/19 Patient seen and examined Patient doing well today Patient doesn't have new complaints DW RN Vitals/I&O Vitals/I&O: Vital Signs Date Time Temp Pulse Resp B/P (MAP) Pulse Ox O2 Delivery O2 Flow Rate FiO2 07/27/19 08:11 103 101/58 (72) 07/27/19 07:37 93 Room Air 07/27/19 06:41 97.8 18 97.8 I & O 07/26/19 07/26/19 07/27/19 15:00 23:00 07:00 Intake Total 540 ml 460 ml Output Total 200 ml 400 ml Balance 340 ml 460 ml -400 ml Physical Exam Physical Exam: GENERAL: Alert and oriented gentleman, not in distress. VITAL SIGNS: Stable, afebrile. HEENT: NAD. NECK: Supple. No JVP, no lymphadenopathy. LUNGS: Clear. HEART: S1, S2 regular. ABDOMEN: Benign. EXTREMITIES: No edema or cyanosis. SKIN: Unremarkable. NEUROLOGIC: The patient is neurologically alert, awake, able to communicate simple things, but memory is poor. MSK: sharp pain localized of right ribs General: Cooperative, No acute distress Heart: Regular rate, Normal S1, Normal S2 Lungs: Clear Abdomen: Soft, No tenderness, Other (thin) Extremities: No clubbing Labs Labs: Laboratory Tests Test 07/27/19 03:45 07/27/19 05:04 Sodium Level 143 mmol/L (136-145) Potassium Level 3.8 mmol/L (3.5-5.1) Chloride Level 110 mmol/L (98-107) Carbon Dioxide Level 24 mmol/L (21-32) Anion Gap 9 (6-14) Blood Urea Nitrogen 31 mg/dL (8-26) Creatinine 1.0 mg/dL (0.7-1.3) Estimated GFR (Cockcroft-Gault) 73.2 Glucose Level 138 mg/dL (70-99) Calcium Level 7.9 mg/dL (8.5-10.1) White Blood Count 7.1 x10^3/uL (4.0-11.0) Red Blood Count 2.02 x10^6/uL (4.30-5.70) Hemoglobin 6.4 g/dL (13.0-17.5) Hematocrit 18.9 % (39.0-53.0) Mean Corpuscular Volume 93 fL (79-100) Mean Corpuscular Hemoglobin 32 pg (25-35) Mean Corpuscular Hemoglobin Concent 34 g/dL (31-37) Red Cell Distribution Width 15.6 % (11.5-14.5) Platelet Count 141 x10^3/uL (140-400) Neutrophils (%) (Auto) 55 % (31-73) Lymphocytes (%) (Auto) 34 % (24-48) Monocytes (%) (Auto) 8 % (0-9) Eosinophils (%) (Auto) 1 % (0-3) Basophils (%) (Auto) 1 % (0-3) Neutrophils # (Auto) 3.9 x10^3/uL (1.8-7.7) Lymphocytes # (Auto) 2.4 x10^3/uL (1.0-4.8) Monocytes # (Auto) 0.6 x10^3/uL (0.0-1.1) Eosinophils # (Auto) 0.1 x10^3/uL (0.0-0.7) Basophils # (Auto) 0.1 x10^3/uL (0.0-0.2) Review of Systems Review of Systems: Denies N/V Denies SOB Assessment and Plan Assessmemt and Plan Problems Medical Problems: (1) Altered level of consciousness Status: Acute (2) Anemia Status: Acute (3) Dehydration Status: Acute (4) Elevated lactic acid level Status: Acute (5) Hypoalbuminemia Status: Acute (6) Hypotension Status: Acute (7) Urinary tract infection Status: Acute Assessment 1. Acute mental status change suspect infectious cause 2. leukocytosis POSSIBLE SEPSIS 3. cognitive decline x months Mild foci of decreased aeration withinthe hemispheric white matter, most often due to chronic microvascular ischemia. ct head 07/25 4. severe protein-caloric malnutrition 5. HX copd, remote heavy tobacco abuse, MILD HYPOXIA ON ABG 6. abnormal weight loss, recent 7. NORMOCYTIC ANEMIA 8. Gross hematuria, possible UTI plan ID following Neuro following Monitor cardio Possible transfusion for low Hgb 07/27- 6.4 U/A Abx for possible UTI Rib films for acute right rib pain trend labs procalcitonin DVT PROPHYLAXIS IV FLUID SUPPORT NEUROCHECKS Q 4 HRS Comment Review of Relevant I have reviewed the following items torie (where applicable) has been applied. Medications: Current Medications Medications (Trade) Dose Ordered Sig/Lesly Route PRN Reason Start Time Stop Time Status Last Admin Dose Admin Lactobacillus Rhamnosus (Culturelle) 1 cap BID PO 07/26/19 21:00 07/27/19 09:18 Cyanocobalamin (Vitamin B-12) 1,000 mcg 1X ONCE IM 07/26/19 13:30 07/26/19 13:31 DC 07/26/19 14:03 Cyanocobalamin (Vitamin B-12) 1,000 mcg QMONTH IM 07/27/19 09:00 07/27/19 09:19 MOISES CAVAZOS III DO Jul 27, 2019 11:10
--- NOTE | 2019-07-27 13:02 | PDOC ---
PROGRESS NOTES Assessment Problems Medical Problems: (1) Altered level of consciousness Status: Acute (2) Anemia Status: Acute (3) Dehydration Status: Acute (4) Elevated lactic acid level Status: Acute (5) Hypoalbuminemia Status: Acute (6) Hypotension Status: Acute (7) Urinary tract infection Status: Acute Dementia, consistent with Alzheimer's CT x2 negative for stroke Hypotension and falls, I doubt that he's had a stroke, I see no evidence of vestibular abnormality, myelopathy, radiculopathy, or neuropathy. I don't see any evidence of acute central nervous system infection. Note leukocytosis, lactic acidosis, infectious disease finds no evidence of infection History of trigeminal neuralgia Slightly elevated sedimentation rate Low B12 level Low TSH level, normal T4 Evidence of old craniotomy on CT head Has developed severe anemia Plan Workup and treatment of anemia Resumed donepezil Added memantine B12 injections Hold on temporal artery biopsy Likely need SNU Objective Vital Signs Date Time Temp Pulse Resp B/P (MAP) Pulse Ox O2 Delivery O2 Flow Rate FiO2 07/27/19 11:40 93 Room Air 07/27/19 11:20 98.1 99 18 99/60 98.1 Intake and Output 07/27/19 07:00 Intake Total 1000 ml Output Total 600 ml Balance 400 ml Intake Oral 1000 ml Output Urine Total 600 ml # Voids 5 # Bowel Movements 2 PHYSICAL EXAM Alert. Knows location, not date, not name of president, names and repeats well, speech fluent PERRL. EOMI. CN: no focal findings. Muscle tone: normal. Muscle strength: 5/5 DTR: 2+ Plantar reflex: flexor Gait: not examined in bed. Sensory exam: no abnormal findings. No cerebellar signs elicited. Bilateral grasp reflexes Review of Relevant I have reviewed the following items torie (where applicable) has been applied. Labs Laboratory Tests Test 07/25/19 15:33 07/25/19 15:45 07/25/19 16:05 07/26/19 03:20 Urine Collection Type U cath Urine Color Yellow Urine Clarity Clear Urine pH 6.5 Urine Specific [place] 1.015 Urine Protein Negative mg/dL (NEG-TRACE) Urine Glucose (UA) Negative mg/dL (NEG) Urine Ketones (Stick) Negative mg/dL (NEG) Urine Blood Negative (NEG) Urine Nitrite Negative (NEG) Urine Bilirubin Negative (NEG) Urine Urobilinogen Dipstick 1.0 mg/dL (0.2 mg/dL) Urine Leukocyte Esterase Trace (NEG) Urine RBC 1-2 /HPF (0-2) Urine WBC 5-10 /HPF (0-4) Urine Squamous Epithelial Cells Occ /LPF Urine Transitional Epithelial Cells Occ /LPF Urine Bacteria 0 /HPF (0-FEW) Urine Hyaline Casts Few /HPF Urine Mucus Slight /LPF Urine Opiates Screen Pos (NEG) Urine Methadone Screen Neg (NEG) Urine Barbiturates Neg (NEG) Urine Phencyclidine Screen Neg (NEG) Urine Amphetamine/Methamphetamine Neg (NEG) Urine Benzodiazepines Screen Neg (NEG) Urine Cocaine Screen Neg (NEG) Urine Cannabinoids Screen Neg (NEG) Urine Ethyl Alcohol Neg (NEG) O2 Saturation 92 % (92-99) Arterial Blood pH 7.44 (7.35-7.45) Arterial Blood pCO2 at Patient Temp 33 mmHg (35-46) Arterial Blood pO2 at Patient Temp 64 mmHg (65-108) Arterial Blood HCO3 22 mmol/L (21-28) Arterial Blood Base Excess -1 mmol/L (-3-3) Oxyhemoglobin 91.2 % Methemoglobin 0.4 % (0.0-1.9) Carbon Monoxide, Quantitative 0.3 % (0.0-1.9) FiO2 21 Lactic Acid Level 1.0 mmol/L (0.4-2.0) Erythrocyte Sedimentation Rate 28 (0-15) Vitamin B12 Level 246 pg/mL (247-911) Thyroid Stimulating Hormone (TSH) 0.177 uIU/mL (0.358-3.74) Thyroxine (T4) 7.1 ug/dL (4.5-12.0) Test 07/27/19 03:45 07/27/19 05:04 Sodium Level 143 mmol/L (136-145) Potassium Level 3.8 mmol/L (3.5-5.1) Chloride Level 110 mmol/L (98-107) Carbon Dioxide Level 24 mmol/L (21-32) Anion Gap 9 (6-14) Blood Urea Nitrogen 31 mg/dL (8-26) Creatinine 1.0 mg/dL (0.7-1.3) Estimated GFR (Cockcroft-Gault) 73.2 Glucose Level 138 mg/dL (70-99) Calcium Level 7.9 mg/dL (8.5-10.1) White Blood Count 7.1 x10^3/uL (4.0-11.0) Red Blood Count 2.02 x10^6/uL (4.30-5.70) Hemoglobin 6.4 g/dL (13.0-17.5) Hematocrit 18.9 % (39.0-53.0) Mean Corpuscular Volume 93 fL (79-100) Mean Corpuscular Hemoglobin 32 pg (25-35) Mean Corpuscular Hemoglobin Concent 34 g/dL (31-37) Red Cell Distribution Width 15.6 % (11.5-14.5) Platelet Count 141 x10^3/uL (140-400) Neutrophils (%) (Auto) 55 % (31-73) Lymphocytes (%) (Auto) 34 % (24-48) Monocytes (%) (Auto) 8 % (0-9) Eosinophils (%) (Auto) 1 % (0-3) Basophils (%) (Auto) 1 % (0-3) Neutrophils # (Auto) 3.9 x10^3/uL (1.8-7.7) Lymphocytes # (Auto) 2.4 x10^3/uL (1.0-4.8) Monocytes # (Auto) 0.6 x10^3/uL (0.0-1.1) Eosinophils # (Auto) 0.1 x10^3/uL (0.0-0.7) Basophils # (Auto) 0.1 x10^3/uL (0.0-0.2) Laboratory Tests Test 07/27/19 03:45 07/27/19 05:04 Sodium Level 143 mmol/L (136-145) Potassium Level 3.8 mmol/L (3.5-5.1) Chloride Level 110 mmol/L (98-107) Carbon Dioxide Level 24 mmol/L (21-32) Anion Gap 9 (6-14) Blood Urea Nitrogen 31 mg/dL (8-26) Creatinine 1.0 mg/dL (0.7-1.3) Estimated GFR (Cockcroft-Gault) 73.2 Glucose Level 138 mg/dL (70-99) Calcium Level 7.9 mg/dL (8.5-10.1) White Blood Count 7.1 x10^3/uL (4.0-11.0) Red Blood Count 2.02 x10^6/uL (4.30-5.70) Hemoglobin 6.4 g/dL (13.0-17.5) Hematocrit 18.9 % (39.0-53.0) Mean Corpuscular Volume 93 fL (79-100) Mean Corpuscular Hemoglobin 32 pg (25-35) Mean Corpuscular Hemoglobin Concent 34 g/dL (31-37) Red Cell Distribution Width 15.6 % (11.5-14.5) Platelet Count 141 x10^3/uL (140-400) Neutrophils (%) (Auto) 55 % (31-73) Lymphocytes (%) (Auto) 34 % (24-48) Monocytes (%) (Auto) 8 % (0-9) Eosinophils (%) (Auto) 1 % (0-3) Basophils (%) (Auto) 1 % (0-3) Neutrophils # (Auto) 3.9 x10^3/uL (1.8-7.7) Lymphocytes # (Auto) 2.4 x10^3/uL (1.0-4.8) Monocytes # (Auto) 0.6 x10^3/uL (0.0-1.1) Eosinophils # (Auto) 0.1 x10^3/uL (0.0-0.7) Basophils # (Auto) 0.1 x10^3/uL (0.0-0.2) Microbiology 07/25/19 Urine Culture - Final, Complete 07/25/19 Urine Culture Result 1 (TERE) - Final, Complete 07/25/19 Blood Culture - Preliminary, Resulted NO GROWTH AFTER 2 DAYS Medications Current Medications Sodium Chloride 1,000 ml @ 1,000 mls/hr Q1H IV Last administered on 07/25/19at 12:34; Start 07/25/19 at 12:34; Stop 07/25/19 at 13:33; Status DC Ceftriaxone Sodium (Rocephin) 1 gm 1X ONCE IVP Last administered on 07/25/19at 15:29; Start 07/25/19 at 15:00; Stop 07/25/19 at 15:01; Status DC Piperacillin Sod/ Tazobactam Sod 3.375 gm/Sodium Chloride 50 ml @ 100 mls/hr Q6HRS IV Last administered on 07/26/19at 11:47; Start 07/26/19 at 00:00; Stop at 15:34; Status DC Sodium Chloride 1,000 ml @ 150 mls/hr Q6H40M IV Last administered on 07/26/19at 11:46; Start 07/25/19 at 15:13; Stop 07/26/19 at 15:12; Status DC Fentanyl Citrate (Fentanyl 2ml Vial) 50 mcg 1X ONCE IVP Last administered on 07/25/19at 15:42; Start 07/25/19 at 15:15; Stop 07/25/19 at 15:20; Status DC Piperacillin Sod/ Tazobactam Sod 3.375 gm/Sodium Chloride 50 ml @ 100 mls/hr 1X ONCE IV Last administered on 07/25/19at 15:30; Start 07/25/19 at 16:00; Stop 07/25/19 at 16:29; Status DC Sodium Chloride (Normal Saline Flush) 3 ml QSHIFT PRN IV AFTER MEDS AND BLOOD DRAWS; Start 07/25/19 at 16:45 Sodium Chloride 1,000 ml @ 70 mls/hr [id number] IV Last administered on 07/26/19at 20:54; Start 07/25/19 at 16:32 Ondansetron HCl (Zofran) 4 mg PRN Q4HRS PRN IV NAUSEA/VOMITING; Start 07/25/19 at 16:45 Acetaminophen (Tylenol) 650 mg PRN Q4HRS PRN PO TEMP OVER 100.4F OR MILD PAIN Last administered on 07/26/19at 20:49; Start 07/25/19 at 16:45 Sodium Monofluorophosphate (Fleet Adult) 133 ml PRN DAILY PRN NM CONSTIPATION; Start 07/25/19 at 16:45 Docusate Sodium (Colace) 100 mg PRN BID PRN PO CONSTIPATION; Start 07/25/19 at 16:45 Albuterol/ Ipratropium (Duoneb) 3 ml Q4HRS NEB Last administered on 07/27/19at 11:40; Start 07/25/19 at 20:00 Guaifenesin (Robitussin) 200 mg PRN Q4HRS PRN PO COUGH; Start 07/25/19 at 16:45 Lorazepam (Ativan) 0.5 mg PRN Q4HRS PRN PO ANXIETY / AGITATION Last admini stered on 07/27/19at 00:21; Start 07/25/19 at 16:45 Enoxaparin Sodium (Lovenox 40mg Syringe) 40 mg DAILY SQ Last administered on at 08:46; Start 07/26/19 at 09:00 Donepezil HCl (Aricept) 10 mg DAILY PO Last administered on 07/27/19at 09:18; Start 07/26/19 at 09:00 Memantine (Namenda) 5 mg DAILY PO Last administered on 07/27/19at 09:18; Start 07/26/19 at 09:00; Stop 08/01/19 at 09:01 Memantine (Namenda) 5 mg BID PO ; Start 08/02/19 at 09:00 Gabapentin (Neurontin) 200 mg 1X PO ; Start 07/25/19 at 19:15; Stop 07/25/19 at 20:05; Status DC Gabapentin (Neurontin) 200 mg BID PO Last administered on 07/27/19at 09:18; Start 07/26/19 at 09:00 Gabapentin (Neurontin) 200 mg 1X ONCE PO Last administered on 07/25/19at 20:10; Start 07/25/19 at 20:15; Stop 07/25/19 at 20:16; Status DC Morphine Sulfate (Morphine Sulfate) 2 mg PRN Q4HRS PRN IV SEVERE PAIN 7-10 Last administered on 07/27/19at 00:21; Start 07/26/19 at 00:30 Lactobacillus Rhamnosus (Culturelle) 1 cap BID PO Last administered on 07/27/19at 09:18; Start 07/26/19 at 21:00 Cyanocobalamin (Vitamin B-12) 1,000 mcg 1X ONCE IM Last administered on 07/26/19at 14:03; Start 07/26/19 at 13:30; Stop 07/26/19 at 13:31; Status DC Cyanocobalamin (Vitamin B-12) 1,000 mcg QMONTH IM Last administered on 07/27/19at 09:19; Start 07/27/19 at 09:00 Levofloxacin/ Dextrose 100 ml @ 100 mls/hr Q24H IV ; Start 07/27/19 at 12:00 Active Scripts Active [place] 5-325 Tablet (Acetaminophen/Hydrocodone Bitart) 1 Each Tablet 1-2 Each PO PRN Q6HRS PRN as needed for pain Reported D3-50 (Cholecalciferol (Vitamin D3)) 50,000 Unit Capsule 50,000 Unit PO DAILY Finasteride 5 Mg Tablet 5 Mg PO DAILY Flomax (Tamsulosin Hcl) 0.4 Mg Cap.er.24h 0.4 Mg PO DAILY Venlafaxine Hcl 75 Mg Tablet 75 Mg PO BID Donepezil Hcl 10 Mg Tablet 1 Tab PO DAILY Morphine Sulfate Er (Morphine Sulfate) 15 Mg Tablet.er 15 Mg PO BID Amitriptyline Hcl 25 Mg Tablet 1 Tab PO QHS Gabapentin (Gabapentin) 300 Mg Capsule 300 Mg PO TID Potassium Chloride (Potassium Chloride) 20 Meq Tablet.er 20 Meq PO DAILY Vitals/I & O Vital Sign - Last 24 Hours 07/26/19 07/26/19 07/26/19 07/26/19 15:00 15:44 16:02 16:32 Temp 98.3 98.3 Pulse 85 Resp 18 B/P (MAP) 102/66 (78) Pulse Ox 94 92 92 92 O2 Delivery Room Air Room Air Room Air Room Air 07/26/19 07/26/19 07/26/19 07/26/19 19:48 20:10 20:50 20:52 Temp 98.4 98.4 Pulse 89 Resp 18 B/P (MAP) 97/60 (72) Pulse Ox 95 95 O2 Delivery Room Air Room Air Room Air Room Air 07/26/19 07/26/19 07/26/19 07/27/19 21:47 23:38 23:55 00:21 Temp 98.0 98.0 Pulse 95 Resp 16 B/P (MAP) 96/57 (70) Pulse Ox 92 94 O2 Delivery Room Air Room Air Room Air Room Air 07/27/19 07/27/19 07/27/19 07/27/19 01:00 03:22 06:41 07:37 Temp 97.8 97.8 Pulse 94 Resp 20 18 B/P (MAP) 91/50 (64) Pulse Ox 96 93 O2 Delivery Room Air Room Air Room Air Room Air 07/27/19 07/27/19 07/27/19 07/27/19 08:00 08:11 11:00 11:05 Temp 98.8 98.8 98.8 98.8 Pulse 103 92 92 Resp 16 16 B/P (MAP) 101/58 (72) 83/46 (58) 83/46 Pulse Ox 92 O2 Delivery Room Air Room Air 07/27/19 07/27/19 11:20 11:40 Temp 98.1 98.1 Pulse 99 Resp 18 B/P (MAP) 99/60 Pulse Ox 93 O2 Delivery Room Air Intake and Output 07/26/19 07/26/19 07/27/19 15:00 23:00 07:00 Intake Total 540 ml 460 ml Output Total 200 ml 400 ml Balance 340 ml 460 ml -[address] head without contrast 07/27/2019 8:00 AM INDICATION: Altered mental status COMPARISON: CT head 07/25/2019 TECHNIQUE: Multiple axial CT images of the head were obtained from skull base through the vertex without intravenous contrast. FINDINGS: Head: Ventricles, sulci and basal cisterns are within normal limits. There is no hydrocephalus. Napoles-white matter differentiation is normal. There is no acute intracranial hemorrhage. There is no mass, mass effect or midline shift. Visualized portions of the orbits are normal. Paranasal sinuses are well aerated. Mastoid air cells are well aerated. Stable right retrosigmoid craniotomy changes are present. Minimal hypoattenuation along the right superior cerebellum posteriorly may reflect subjacent encephalomalacia, stable from the prior examination.. IMPRESSION: No acute intracranial hemorrhage. Stable postoperative changes from right retrosigmoid craniotomy. HAROON MCQUEEN MD Jul 27, 2019 13:02
[2019-07-27] MEDS: IV NORMAL SALINE 1000ML BAG 1,000 ML IV SCH (14:07)
--- NOTE | 2019-07-27 15:49 | PDOC2 ---
GI CONSULT Reason For Consult: Hgb drop HPI: HPI: 73 y/o male w/ AMS, falls, and hypotension. Nurse notes hematuria and has no GI concerns. On admission, Hgb was 9.7 w/ MCV 94 and BUN 48. Today Hgb was 6.4. Transfused one unit pRBCs earlier today, plans to recheck Hgb later. Has B12 ordered. H/o dementia, questionable history - he doesn't recall blood transfusion earlier today but does remember urinating blood. C/o right rib and ankle pain. Denies reflux, dysphagia, n/v, abd pain, diarrhea, constipation, hematemesis, hematochezia, and melena. Says he has lost 30 pounds in 1 month, maybe from lack of appetite. Does not recall previous EGD but does think he had a couple colonoscopies. Denies GB, liver, pancreas, and PUD history. PMH: PMH: per chart - HTN, COPD, dementia, trigeminal neuralgia, COPD, OA, BPH, melanoma FH: Family History: No pertinent hx Social History: Smoke: Quit ALCOHOL: none Drugs: None ROS: Per HPI. Vitals: Vitals: Vital Signs Date Time Temp Pulse Resp B/P (MAP) Pulse Ox O2 Delivery O2 Flow Rate FiO2 07/27/19 15:00 98.0 95 18 104/67 (79) 96 Room Air 98.0 Labs: Labs: Laboratory Tests Test 07/27/19 03:45 07/27/19 05:04 Sodium Level 143 mmol/L (136-145) Potassium Level 3.8 mmol/L (3.5-5.1) Chloride Level 110 mmol/L (98-107) Carbon Dioxide Level 24 mmol/L (21-32) Anion Gap 9 (6-14) Blood Urea Nitrogen 31 mg/dL (8-26) Creatinine 1.0 mg/dL (0.7-1.3) Estimated GFR (Cockcroft-Gault) 73.2 Glucose Level 138 mg/dL (70-99) Calcium Level 7.9 mg/dL (8.5-10.1) White Blood Count 7.1 x10^3/uL (4.0-11.0) Red Blood Count 2.02 x10^6/uL (4.30-5.70) Hemoglobin 6.4 g/dL (13.0-17.5) Hematocrit 18.9 % (39.0-53.0) Mean Corpuscular Volume 93 fL (79-100) Mean Corpuscular Hemoglobin 32 pg (25-35) Mean Corpuscular Hemoglobin Concent 34 g/dL (31-37) Red Cell Distribution Width 15.6 % (11.5-14.5) Platelet Count 141 x10^3/uL (140-400) Neutrophils (%) (Auto) 55 % (31-73) Lymphocytes (%) (Auto) 34 % (24-48) Monocytes (%) (Auto) 8 % (0-9) Eosinophils (%) (Auto) 1 % (0-3) Basophils (%) (Auto) 1 % (0-3) Neutrophils # (Auto) 3.9 x10^3/uL (1.8-7.7) Lymphocytes # (Auto) 2.4 x10^3/uL (1.0-4.8) Monocytes # (Auto) 0.6 x10^3/uL (0.0-1.1) Eosinophils # (Auto) 0.1 x10^3/uL (0.0-0.7) Basophils # (Auto) 0.1 x10^3/uL (0.0-0.2) URINE CULTURE RES 1 Final No growth BLOOD CULTURE Preliminary NO GROWTH AFTER 2 DAYS Allergies: Coded Allergies: No Known Allergies (Verified Allergy, Unknown, 07/09/18) Medications: Current Medications Medications (Trade) Dose Ordered Sig/Lesly Route PRN Reason Start Time Stop Time Status Last Admin Dose Admin Lactobacillus Rhamnosus (Culturelle) 1 cap BID PO 07/26/19 21:00 07/27/19 09:18 Cyanocobalamin (Vitamin B-12) 1,000 mcg QMONTH IM 07/27/19 09:00 07/27/19 09:19 Levofloxacin/ Dextrose 100 ml @ 100 mls/hr Q24H IV 07/27/19 12:00 07/27/19 14:08 Imaging: Imaging: Head CT 07/25 Impression: 1. No acute intracranial abnormality. CXR 07/25 Impression: 1. Hyperinflation. 2. Prior granulomatous disease. Head CT 07/25 IMPRESSION: No acute intracranial hemorrhage. Stable postoperative changes from right retrosigmoid craniotomy. 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 IMPRESSIONS: Oropharygneal swallow WNLs. Doubt dysphagia as a contributing factor to pt's wt loss. Low risk of aspiration per this assessment. RECOMMENDATIONS: Con't current diet of regular consistency w/thin liquids. General precautions. No additional OWNER OPERATOR services indicated. PE: GEN: NAD HEENT: Atraumatic, PERRL LUNGS: CTAB HEART: RRR ABD: NABS, S/ND/NT - is tender over left ribs EXTREMITY: No edema SKIN: pale NEURO/PSYCH: forgetful A/P: A/P: Falls, AMS, left rib pain, weight loss, hematuria Dementia Leukocytosis, lactic acidosis - resolved Normocytic anemia - Hgb to 6.7 this morning, has transfused, BUN was elevated on admission CRC screen - reports colonoscopies in the past -- Seems would benefit from urology eval. Suspect historian. Reviewed w/ Dr. Francisco - recheck Hgb now, transfuse another unit if still below 7 - d/w nurse. Empiric PPI, check anemia parameters - looks like B12 already ordered, will add iron. LUIS F PINK Jul 27, 2019 15:49
[2019-07-27 15:55] LABS: HEMOGLOBIN 7.8 g/dL (13.0-17.5)
[2019-07-27 17:11] LABS: BILIRUBIN,URINE NEGATIVE (NEG); CLARITY,URINE CLEAR; COLOR,URINE YELLOW; NITRITE,URINE NEGATIVE (NEG); PROTEIN,URINE NEGATIVE (NEG-TRACE)
--- NOTE | 2019-07-27 17:11 | RAD ---
Examination: RIBS RIGHT History: Acute rib pain, right-sided pain after falling. Comparison/Correlation: None Findings: Total of 4 images of the right ribs were obtained. Calcified granulomas involve the right lung field. Displaced right ninth rib fracture is present with callus formation. Levoconvex rotoscoliosis of the lumbar spine is evident. Impression: No acute right rib fracture. Displaced right ninth rib fracture laterally again seen and is old in appearance. Electronically signed by: Lino Payan MD (07/27/2019 5:08 PM) [facility]
[2019-07-27 17:22] LABS: RBC,URINE >40 /HPF (0-2)
[2019-07-27 17:23] LABS: BACTERIA,URINE 0 /HPF (0-FEW)
[2019-07-27] MEDS: PANTOPRAZOLE 40 MG TABLET.DR. PO SCH (18:21)
[2019-07-27] MEDS ORDERED: IOHEXOL 240 MG/ML 50ML VIAL. PO ONE (23:00)
[2019-07-27] MEDS ORDERED: IOHEXOL 300 MG/ML 100ML VIAL. IV ONE (23:00)
[2019-07-27] MEDS ORDERED: CONTRAST GIVEN. MC PRN (23:00)
--- NOTE | 2019-07-27 23:52 | RAD ---
CT abdomen and pelvis with contrast PQRS statement: CT scans at this facility use dose reduction including either automated exposure control, iterative reconstructions, and /or weight based radiation dosing via mA and kV modification when appropriate to reduce radiation dose to as low as reasonably achievable. HISTORY: Hematuria, anemia. Contrast: 75 mL Omnipaque 300 intravenous contrast. Abdomen findings: Right middle lobe 3 mm nodule image 6. 5 mm right lower lobe nodule image 4. 4 mm right lower lobe nodule image 1. 3 mm left lower lobe nodule image 2. Asymmetric bronchial wall thickening right lower lobe and heterogeneous opacity. Lumbar scoliosis, disc disease and arthritic changes spinal canal and neural canal stenoses. There is an indeterminate 1 cm lytic lesion of the left L2 vertebral body. Similar 1 cm indeterminate right L1 vertebral body lytic lesion. Small left renal lower pole calculi measuring 2 mm. Left renal scarring. 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 Separately exophytic from the lateral cortex of the left renal upper pole coronal image 43 and axial image 23 is indeterminate 1 cm hyperdense lesion measuring 78 units. Exophytic 3 cm right renal cyst density 20 units. Liver, gallbladder, spleen, adrenal glands unremarkable. Mild atrophy of the pancreas. 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 No abdominal fluid or adenopathy. Appendix is negative. Moderate volume of stool. Chronic nonunion fracture right posterior 10th rib. Chronic nonunion right lateral ninth rib fracture. Chronic nonunion left posterior 11th rib fracture. Pelvis findings: Bladder, prostate and bones are unremarkable. No adenopathy. The mid to lower rectum demonstrates circumferential masslike wall thickening concerning for malignancy. There is mild groundglass density edema of the perirectal fat and hypervascularity. IMPRESSION: 1. Masslike circumferential wall thickening of the mid to lower rectum concerning for malignancy. Exuberant inflammation from a distal colitis is less likely. 2. Indeterminate lytic lesions of the L1 and L2 lumbar vertebra. Metastatic lesions are not excluded. 3. Fusiform aneurysm of the abdominal aorta with a diameter of 4.8 cm. 4. Moderate volume of stool within the colon may indicate constipation and could indicate a mild obstruction due to the rectal lesion. 5. Appendix is negative. 6. 1 cm indeterminate hyperdense lesion of the left renal upper pole lateral cortex could represent a hemorrhagic cyst or a hypervascular neoplasm. This could be further assessed with outpatient sonography or MR imaging. 7. Atelectasis/infiltrate of the right lower lobe. There are scattered small nodules of the lung bases largest measuring 5 mm. Consider further assessment with outpatient CT chest imaging. Electronically signed by: Reji Schroeder MD (07/27/2019 11:49 PM) [id number]
[2019-07-28] MEDS: IPRATRPIUM/ALBUTEROL 0.5/2.5MG 3 ML NEBU. NEB SCH ×5 (00:08→21:54)
[2019-07-28] MEDS: IV NORMAL SALINE 1000ML BAG 1,000 ML IV SCH ×2 (00:42→16:01)
[2019-07-28] MEDS: GABAPENTIN 100 MG CAPSULE. PO SCH ×4 (00:42→22:03)
[2019-07-28] MEDS: LORazepam 0.5 MG TABLET PO PRN ×2 (00:43→12:45)
[2019-07-28] MEDS: MORPHINE SULFATE 2 MG/ML VIAL. IV PRN (00:43)
[2019-07-28 03:00] VITALS: BP 100/62
[2019-07-28 05:46] LABS: BASO # 0.1 x10^3/uL (0.0-0.2); BASO % 1 % (0-3); EOS # 0.2 x10^3/uL (0.0-0.7); EOS % 3 % (0-3); HEMATOCRIT 22.7 % (39.0-53.0); HEMOGLOBIN 7.9 g/dL (13.0-17.5); LYMPH # 3.4 x10^3/uL (1.0-4.8); LYMPH % 40 % (24-48); MEAN CORPUSCULAR HEMOGLOBIN 33 pg (25-35); MEAN CORPUSCULAR HGB CONC 35 g/dL (31-37); MEAN CORPUSCULAR VOLUME 94 fL (79-100); MONO # 0.7 x10^3/uL (0.0-1.1); MONO % 8 % (0-9); NEUT % 48 % (31-73); PLATELET COUNT 164 x10^3/uL (140-400); RED BLOOD COUNT 2.41 x10^6/uL (4.30-5.70); RED CELL DISTRIBUTION WIDTH 15.6 % (11.5-14.5); WHITE BLOOD COUNT 8.4 x10^3/uL (4.0-11.0)
[2019-07-28 06:04] LABS: CALCIUM 8.5 mg/dL (8.5-10.1); GFR 73.2; POTASSIUM 3.6 mmol/L (3.5-5.1)
[2019-07-28 07:00] VITALS: BP 119/79
[2019-07-28] MEDS: ENOXAPARIN 40 MG/0.4 ML SYRINGE. SQ SCH (09:00)
[2019-07-28] MEDS ORDERED: IV RINGERS,LACTATED 1000ML 1,000 ML IV ONE (10:45)
[2019-07-28] MEDS ORDERED: PROPOFOL 20 ML IV ONE (11:40)
[2019-07-28] MEDS ORDERED: LIDOCAINE 2% PF 5 ML VIAL. ONE (11:40)
--- NOTE | 2019-07-28 12:03 | PDOC4 ---
Operative Note Operative Note Flex sigmoidoscopy Meds propofol per anesthesia Pre-op dx acute blood loss anemia/abnl CT scan post-op dx internal hemorrhoids extent sigmoid colon Plan resume diet serial cbcs PPI therapy/consider EGD if anemia worsens JAKI HENRIQUEZ MD Jul 28, 2019 12:03
[2019-07-28] MEDS: MEMANTINE 5 MG TABLET. PO SCH (12:46)
[2019-07-28] MEDS: DONEPEZIL HCL 10 MG TABLET. PO SCH (12:46)
[2019-07-28] MEDS: LACTOBACILLUS RHAMNOSUS GG 1 CAPSULE. PO SCH ×3 (12:46→22:03)
[2019-07-28] MEDS: PANTOPRAZOLE 40 MG TABLET.DR. PO SCH (12:46)
--- NOTE | 2019-07-28 13:13 | PDOC ---
PROGRESS NOTES Assessment Problems Medical Problems: (1) Altered level of consciousness Status: Acute (2) Anemia Status: Acute (3) Dehydration Status: Acute (4) Elevated lactic acid level Status: Acute (5) Hypoalbuminemia Status: Acute (6) Hypotension Status: Acute (7) Urinary tract infection Status: Acute CT findings: Masslike circumferential wall thickening of the mid to lower rectum concerning for malignancy. Indeterminate lytic lesions of the L1 and L2 lumbar vertebra. Metastatic lesions are not excluded. Fusiform aneurysm of the abdominal aorta with a diameter of 4.8 cm. 1 cm indeterminate hyperdense lesion of the left renal upper pole lateral cortex could represent a hemorrhagic cyst Note lab work, TSH, T4, B12, sedimentation rate was drawn on wrong patient. These labs were redrawn, positive for elevated sedimentation rate. Note, though, B12 was drawn after I gave him injections, no harm to the patient. Dementia, consistent with Alzheimer's CT x2 negative for stroke Hypotension and falls, I doubt that he's had a stroke, I see no evidence of vestibular abnormality, myelopathy, radiculopathy, or neuropathy. I don't see any evidence of acute central nervous system infection. Note leukocytosis, lactic acidosis, infectious disease finds no evidence of infection History of trigeminal neuralgia Evidence of old craniotomy on CT head, he had a melanoma removed Has developed severe anemia Plan Oncology and GI workup Resumed donepezil Added memantine B12 injections Hold on temporal artery biopsy Likely need SNU Subjective Very worried about CT findings, he knows something is wrong. Objective Vital Signs Date Time Temp Pulse Resp B/P (MAP) Pulse Ox O2 Delivery O2 Flow Rate FiO2 07/28/19 12:17 74 20 120/58 94 Room Air 07/28/19 11:57 97.5 3 97.5 Intake and Output 07/28/19 07:00 Intake Total 1845 ml Balance 1845 ml Intake Oral 1320 ml Blood Product 325 ml Blood Product IV Normal Saline Flush 200 ml # Voids 2 # Bowel Movements 1 PHYSICAL EXAM Alert. Knows location, not date, not name of president, names and repeats well, speech fluent PERRL. EOMI. CN: no focal findings. Muscle tone: normal. Muscle strength: 5/5 DTR: 2+ Plantar reflex: flexor Gait: not examined in bed. Sensory exam: no abnormal findings. No cerebellar signs elicited. Bilateral grasp reflexes Review of Relevant I have reviewed the following items torie (where applicable) has been applied. Labs Laboratory Tests Test 07/27/19 03:45 07/27/19 05:04 07/27/19 15:50 07/27/19 16:10 Sodium Level 143 mmol/L (136-145) Potassium Level 3.8 mmol/L (3.5-5.1) Chloride Level 110 mmol/L (98-107) Carbon Dioxide Level 24 mmol/L (21-32) Anion Gap 9 (6-14) Blood Urea Nitrogen 31 mg/dL (8-26) Creatinine 1.0 mg/dL (0.7-1.3) Estimated GFR (Cockcroft-Gault) 73.2 Glucose Level 138 mg/dL (70-99) Calcium Level 7.9 mg/dL (8.5-10.1) Iron Level 40 ug/dL (65-175) Total Iron Binding Capacity 225 ug/dL (250-450) Iron Saturation 18 % (15-34) Vitamin B12 Level > 2000 pg/mL (247-911) Thyroid Stimulating Hormone (TSH) 3.084 uIU/mL (0.358-3.74) Thyroxine (T4) 5.8 ug/dL (4.5-12.0) White Blood Count 7.1 x10^3/uL (4.0-11.0) Red Blood Count 2.02 x10^6/uL (4.30-5.70) Hemoglobin 6.4 g/dL (13.0-17.5) 7.8 g/dL (13.0-17.5) Hematocrit 18.9 % (39.0-53.0) 23.0 % (39.0-53.0) Mean Corpuscular Volume 93 fL (79-100) Mean Corpuscular Hemoglobin 32 pg (25-35) Mean Corpuscular Hemoglobin Concent 34 g/dL (31-37) 34 g/dL (31-37) Red Cell Distribution Width 15.6 % (11.5-14.5) Platelet Count 141 x10^3/uL (140-400) Neutrophils (%) (Auto) 55 % (31-73) Lymphocytes (%) (Auto) 34 % (24-48) Monocytes (%) (Auto) 8 % (0-9) Eosinophils (%) (Auto) 1 % (0-3) Basophils (%) (Auto) 1 % (0-3) Neutrophils # (Auto) 3.9 x10^3/uL (1.8-7.7) Lymphocytes # (Auto) 2.4 x10^3/uL (1.0-4.8) Monocytes # (Auto) 0.6 x10^3/uL (0.0-1.1) Eosinophils # (Auto) 0.1 x10^3/uL (0.0-0.7) Basophils # (Auto) 0.1 x10^3/uL (0.0-0.2) Erythrocyte Sedimentation Rate 37 (0-15) Urine Collection Type Unknown Urine Color Yellow Urine Clarity Clear Urine pH 6.0 Urine Specific [place] 1.015 Urine Protein Negative mg/dL (NEG-TRACE) Urine Glucose (UA) Negative mg/dL (NEG) Urine Ketones (Stick) Negative mg/dL (NEG) Urine Blood Large (NEG) Urine Nitrite Negative (NEG) Urine Bilirubin Negative (NEG) Urine Urobilinogen Dipstick 1.0 mg/dL (0.2 mg/dL) Urine Leukocyte Esterase Small (NEG) Urine RBC >40 /HPF (0-2) Urine WBC 11-20 /HPF (0-4) Urine Bacteria 0 /HPF (0-FEW) Test 07/28/19 04:35 White Blood Count 8.4 x10^3/uL (4.0-11.0) Red Blood Count 2.41 x10^6/uL (4.30-5.70) Hemoglobin 7.9 g/dL (13.0-17.5) Hematocrit 22.7 % (39.0-53.0) Mean Corpuscular Volume 94 fL (79-100) Mean Corpuscular Hemoglobin 33 pg (25-35) Mean Corpuscular Hemoglobin Concent 35 g/dL (31-37) Red Cell Distribution Width 15.6 % (11.5-14.5) Platelet Count 164 x10^3/uL (140-400) Neutrophils (%) (Auto) 48 % (31-73) Lymphocytes (%) (Auto) 40 % (24-48) Monocytes (%) (Auto) 8 % (0-9) Eosinophils (%) (Auto) 3 % (0-3) Basophils (%) (Auto) 1 % (0-3) Neutrophils # (Auto) 4.0 x10^3/uL (1.8-7.7) Lymphocytes # (Auto) 3.4 x10^3/uL (1.0-4.8) Monocytes # (Auto) 0.7 x10^3/uL (0.0-1.1) Eosinophils # (Auto) 0.2 x10^3/uL (0.0-0.7) Basophils # (Auto) 0.1 x10^3/uL (0.0-0.2) Sodium Level 141 mmol/L (136-145) Potassium Level 3.6 mmol/L (3.5-5.1) Chloride Level 109 mmol/L (98-107) Carbon Dioxide Level 23 mmol/L (21-32) Anion Gap 9 (6-14) Blood Urea Nitrogen 22 mg/dL (8-26) Creatinine 1.0 mg/dL (0.7-1.3) Estimated GFR (Cockcroft-Gault) 73.2 Glucose Level 96 mg/dL (70-99) Calcium Level 8.5 mg/dL (8.5-10.1) Laboratory Tests Test 07/27/19 15:50 07/27/19 16:10 07/28/19 04:35 Hemoglobin 7.8 g/dL (13.0-17.5) 7.9 g/dL (13.0-17.5) Hematocrit 23.0 % (39.0-53.0) 22.7 % (39.0-53.0) Mean Corpuscular Hemoglobin Concent 34 g/dL (31-37) 35 g/dL (31-37) Erythrocyte Sedimentation Rate 37 (0-15) Urine Collection Type Unknown Urine Color Yellow Urine Clarity Clear Urine pH 6.0 Urine Specific [place] 1.015 Urine Protein Negative mg/dL (NEG-TRACE) Urine Glucose (UA) Negative mg/dL (NEG) Urine Ketones (Stick) Negative mg/dL (NEG) Urine Blood Large (NEG) Urine Nitrite Negative (NEG) Urine Bilirubin Negative (NEG) Urine Urobilinogen Dipstick 1.0 mg/dL (0.2 mg/dL) Urine Leukocyte Esterase Small (NEG) Urine RBC >40 /HPF (0-2) Urine WBC 11-20 /HPF (0-4) Urine Bacteria 0 /HPF (0-FEW) White Blood Count 8.4 x10^3/uL (4.0-11.0) Red Blood Count 2.41 x10^6/uL (4.30-5.70) Mean Corpuscular Volume 94 fL (79-100) Mean Corpuscular Hemoglobin 33 pg (25-35) Red Cell Distribution Width 15.6 % (11.5-14.5) Platelet Count 164 x10^3/uL (140-400) Neutrophils (%) (Auto) 48 % (31-73) Lymphocytes (%) (Auto) 40 % (24-48) Monocytes (%) (Auto) 8 % (0-9) Eosinophils (%) (Auto) 3 % (0-3) Basophils (%) (Auto) 1 % (0-3) Neutrophils # (Auto) 4.0 x10^3/uL (1.8-7.7) Lymphocytes # (Auto) 3.4 x10^3/uL (1.0-4.8) Monocytes # (Auto) 0.7 x10^3/uL (0.0-1.1) Eosinophils # (Auto) 0.2 x10^3/uL (0.0-0.7) Basophils # (Auto) 0.1 x10^3/uL (0.0-0.2) Sodium Level 141 mmol/L (136-145) Potassium Level 3.6 mmol/L (3.5-5.1) Chloride Level 109 mmol/L (98-107) Carbon Dioxide Level 23 mmol/L (21-32) Anion Gap 9 (6-14) Blood Urea Nitrogen 22 mg/dL (8-26) Creatinine 1.0 mg/dL (0.7-1.3) Estimated GFR (Cockcroft-Gault) 73.2 Glucose Level 96 mg/dL (70-99) Calcium Level 8.5 mg/dL (8.5-10.1) Microbiology 07/25/19 Urine Culture - Final, Complete 07/25/19 Urine Culture Result 1 (TERE) - Final, Complete 07/25/19 Blood Culture - Preliminary, Resulted NO GROWTH AFTER 3 DAYS Medications Current Medications Sodium Chloride 1,000 ml @ 1,000 mls/hr Q1H IV Last administered on 07/25/19at 12:34; Start 1/7/20 at 12:34; Stop 07/25/19 at 13:33; Status DC Ceftriaxone Sodium (Rocephin) 1 gm 1X ONCE IVP Last administered on 07/25/19at 15:29; Start 07/25/19 at 15:00; Stop 07/25/19 at 15:01; Status DC Piperacillin Sod/ Tazobactam Sod 3.375 gm/Sodium Chloride 50 ml @ 100 mls/hr Q6HRS IV Last administered on 07/26/19at 11:47; Start 07/26/19 at 00:00; Stop 07/26/19 at 15:34; Status DC Sodium Chloride 1,000 ml @ 150 mls/hr Q6H40M IV Last administered on 07/26/19at 11:46; Start 07/25/19 at 15:13; Stop 07/26/19 at 15:12; Status DC Fentanyl Citrate (Fentanyl 2ml Vial) 50 mcg 1X ONCE IVP Last administered on 07/25/19at 15:42; Start 07/25/19 at 15:15; Stop 07/25/19 at 15:20; Status DC Piperacillin Sod/ Tazobactam Sod 3.375 gm/Sodium Chloride 50 ml @ 100 mls/hr 1X ONCE IV Last administered on 07/25/19at 15:30; Start 07/25/19 at 16:00; Stop 07/25/19 at 16:29; Status DC Sodium Chloride (Normal Saline Flush) 3 ml QSHIFT PRN IV AFTER MEDS AND BLOOD DRAWS; Start 07/25/19 at 16:45 Sodium Chloride 1,000 ml @ 70 mls/hr [id number] IV Last administered on 07/28/19at 00:42; Start 07/25/19 at 16:32 Ondansetron HCl (Zofran) 4 mg PRN Q4HRS PRN IV NAUSEA/VOMITING; Start 07/25/19 at 16:45 Acetaminophen (Tylenol) 650 mg PRN Q4HRS PRN PO TEMP OVER 100.4F OR MILD PAIN Last administered on 07/26/19at 20:49; Start 07/25/19 at 16:45 Sodium Monofluorophosphate (Fleet Adult) 133 ml PRN DAILY PRN MI CONSTIPATION; Start 07/25/19 at 16:45 Docusate Sodium (Colace) 100 mg PRN BID PRN PO CONSTIPATION; Start 07/25/19 at 16:45 Albuterol/ Ipratropium (Duoneb) 3 ml Q4HRS NEB Last administered on 07/28/19at 00:08; Start 07/25/19 at 20:00; Stop 07/28/19 at 00:50; Status DC Guaifenesin (Robitussin) 200 mg PRN Q4HRS PRN PO COUGH; Start 07/25/19 at 16:45 Lorazepam (Ativan) 0.5 mg PRN Q4HRS PRN PO ANXIETY / AGITATION Last administered on 07/28/19at 12:45; Start 07/25/19 at 16:45 Enoxaparin Sodium (Lovenox 40mg Syringe) 40 mg DAILY SQ Last administered on 07/26/19at 08:46; Start 07/26/19 at 09:00 Donepezil HCl (Aricept) 10 mg DAILY PO Last administered on 07/28/19at 12:46; Start 07/26/19 at 09:00 Memantine (Namenda) 5 mg DAILY PO Last administered on 07/28/19at 12:46; Start 07/26/19 at 09:00; Stop 08/01/19 at 09:01 Memantine (Namenda) 5 mg BID PO ; Start 08/02/19 at 09:00 Gabapentin (Neurontin) 200 mg 1X PO ; Start 07/25/19 at 19:15; Stop 07/25/19 at 20:05; Status DC Gabapentin (Neurontin) 200 mg BID PO Last administered on 07/28/19at 12:45; Start 07/26/19 at 09:00 Gabapentin (Neurontin) 200 mg 1X ONCE PO Last administered on 07/25/19at 20:10; Start 07/25/19 at 20:15; Stop 07/25/19 at 20:16; Status DC Morphine Sulfate (Morphine Sulfate) 2 mg PRN Q4HRS PRN IV SEVERE PAIN 7-10 Last administered on 07/28/19at 00:43; Start 07/26/19 at 00:30 Lactobacillus Rhamnosus (Culturelle) 1 cap BID PO Last administered on 07/28/19at 12:46; Start 07/26/19 at 21:00 Cyanocobalamin (Vitamin B-12) 1,000 mcg 1X ONCE IM Last administered on 07/26/19at 14:03; Start 07/26/19 at 13:30; Stop 07/26/19 at 13:31; Status DC Cyanocobalamin (Vitamin B-12) 1,000 mcg QMONTH IM Last administered on 07/27/19at 09:19; Start 07/27/19 at 09:00 Levofloxacin/ Dextrose 100 ml @ 100 mls/hr Q24H IV Last administered on 07/27/19at 14:08; Start 07/27/19 at 12:00 Pantoprazole Sodium (Protonix) 40 mg DAILYAC PO Last administered on 07/28/19at 12:46; Start 07/27/19 at 17:00 Iohexol (Omnipaque 240 Mg/ml) 30 ml 1X ONCE PO Last administered on 07/27/19at 22:55; Start 07/27/19 at 23:00; Stop 07/27/19 at 23:01; Status DC Iohexol (Omnipaque 300 Mg/ml) 75 ml 1X ONCE IV Last administered on 07/27/19at 22:55; Start 07/27/19 at 23:00; Stop 07/27/19 at 23:01; Status DC Info (CONTRAST GIVEN -- Rx MONITORING) 1 each PRN DAILY PRN MC SEE COMMENTS; Start 07/27/19 at 23:00; Stop 07/29/19 at 22:59 Albuterol/ Ipratropium (Duoneb) 3 ml RTQID NEB Last administered on 07/28/19at 08:00; Start 07/28/19 at 08:00 Ringer's Solution 1,000 ml @ 75 mls/hr 1X ONCE IV ; Start 07/28/19 at 10:45; Stop 07/29/19 at 00:04 Propofol 20 ml @ As Directed STK-MED ONCE IV ; Start 07/28/19 at 11:40; Stop 07/28/19 at 11:40; Status DC Lidocaine HCl (Lidocaine Pf 2% Vial) 5 ml STK-MED ONCE .ROUTE ; Start 07/28/19 at 11:40; Stop 07/28/19 at 11:40; Status DC Active Scripts Active [place] 5-325 Tablet (Acetaminophen/Hydrocodone Bitart) 1 Each Tablet 1-2 Each PO PRN Q6HRS PRN as needed for pain Reported D3-50 (Cholecalciferol (Vitamin D3)) 50,000 Unit Capsule 50,000 Unit PO DAILY Finasteride 5 Mg Tablet 5 Mg PO DAILY Flomax (Tamsulosin Hcl) 0.4 Mg Cap.er.24h 0.4 Mg PO DAILY Venlafaxine Hcl 75 Mg Tablet 75 Mg PO BID Donepezil Hcl 10 Mg Tablet 1 Tab PO DAILY Morphine Sulfate Er (Morphine Sulfate) 15 Mg Tablet.er 15 Mg PO BID Amitriptyline Hcl 25 Mg Tablet 1 Tab PO QHS Gabapentin (Gabapentin) 300 Mg Capsule 300 Mg PO TID Potassium Chloride (Potassium Chloride) 20 Meq Tablet.er 20 Meq PO DAILY Vitals/I & O Vital Sign - Last 24 Hours 07/27/19 07/27/19 07/27/19 07/27/19 13:20 14:00 15:00 19:00 Temp 98.0 98.1 98.0 98.8 98.0 98.1 98.0 98.8 Pulse 97 99 95 92 Resp 20 18 18 14 B/P (MAP) 99/56 106/86 104/67 (79) 97/56 (70) Pulse Ox 96 O2 Delivery Room Air 07/27/19 07/27/19 07/27/19 07/27/19 19:51 20:04 23:00 23:56 Temp 98.4 98.4 Pulse 80 Resp 16 B/P (MAP) 103/65 (78) Pulse Ox 93 91 O2 Delivery Room Air Room Air Room Air Room Air 07/28/19 07/28/19 07/28/19 07/28/19 00:43 01:13 03:00 07:00 Temp 98.1 98.1 98.1 98.1 Pulse 89 79 Resp 16 20 B/P (MAP) 100/62 (75) 119/79 (92) Pulse Ox 95 96 O2 Delivery Room Air Room Air Room Air 07/28/19 07/28/19 07/28/19 07/28/19 08:11 10:29 11:57 12:17 Temp 98.1 97.5 98.1 97.5 Pulse 86 73 74 Resp 20 16 20 B/P (MAP) 101/56 120/58 Pulse Ox 96 96 94 94 O2 Delivery Room Air Nasal Cannula Room Air O2 Flow Rate 3 Intake and Output 07/27/19 07/27/19 07/28/19 15:00 23:00 07:00 Intake Total 825 ml 400 ml 620 ml Balance 825 ml 400 ml 620 ml HAROON MCQUEEN MD Jul 28, 2019 13:13
--- NOTE | 2019-07-28 14:03 | NUR ---
SS following up with discharge planning. strategic planner, Vandana Flynn, spoke with pt and family yesterday and made referral to [facility], ; fax [phone]. SS currently awaiting acceptance decision and insurance determination at this time. SS will continue to follow for discharge planning.
--- NOTE | 2019-07-28 14:32 | PDOC ---
PROGRESS NOTES Chief Complaint Chief Complaint 1. Acute mental status change suspect infectious cause 2. Leukocytosis sepsis has been ruled out 3. cognitive decline x months, patient with worsening dementia. Patient will likely need placement. Mild foci of decreased aeration within the hemispheric white matter, most often due to chronic microvascular ischemia. ct head 07/25 4. severe protein-caloric malnutrition 5. HX copd, remote heavy tobacco abuse 6. abnormal weight loss, recent 7. NORMOCYTIC ANEMIA 8. Patient presented hematuria which has resolved the present time. The patient was noted to have a mass like lesion on CAT scan of the abdomen and pelvis and he was evaluated today on 07/28 with a colonoscopy with no findings of mass. H&H seems to be stable we'll continue to follow in the a.m. History of Present Illness History of Present Illness 07/28/19 Patient pleasantly demented. Patient unfortunately is unable to have a meaningful conversation of the present time and let us make decisions on his own. Power of commercial real estate attorney paperwork has been brought by his daughter. Patient will require Lasix and most likely no acute events reported overnight by the nursing staff 07/27/19 Patient seen and examined complains of right rib pain Gross hematuria this morning DW RN 07/26/19 Patient seen and examined Patient doing well today Patient doesn't have new complaints DW RN Vitals Vitals Vital Signs Date Time Temp Pulse Resp B/P (MAP) Pulse Ox O2 Delivery O2 Flow Rate FiO2 07/28/19 12:17 74 20 120/58 94 Room Air 07/28/19 11:57 97.5 3 97.5 Physical Exam Physical Exam GENERAL: Alert and oriented gentleman, not in distress. VITAL SIGNS: Stable, afebrile. HEENT: NAD. NECK: Supple. No JVP, no lymphadenopathy. LUNGS: Clear. HEART: S1, S2 regular. ABDOMEN: Benign. EXTREMITIES: No edema or cyanosis. SKIN: Unremarkable. NEUROLOGIC: The patient is neurologically alert, awake, able to communicate simple things, but memory is poor. MSK: sharp pain localized of right ribs General: Cooperative, No acute distress Heart: Regular rate, Normal S1, Normal S2 Lungs: Clear Abdomen: Soft, No tenderness, Other (thin) Extremities: No clubbing Labs LABS Laboratory Tests Test 07/27/19 15:50 07/27/19 16:10 07/28/19 04:35 Hemoglobin 7.8 g/dL (13.0-17.5) 7.9 g/dL (13.0-17.5) Hematocrit 23.0 % (39.0-53.0) 22.7 % (39.0-53.0) Mean Corpuscular Hemoglobin Concent 34 g/dL (31-37) 35 g/dL (31-37) Erythrocyte Sedimentation Rate 37 (0-15) Urine Collection Type Unknown Urine Color Yellow Urine Clarity Clear Urine pH 6.0 Urine Specific [place] 1.015 Urine Protein Negative mg/dL (NEG-TRACE) Urine Glucose (UA) Negative mg/dL (NEG) Urine Ketones (Stick) Negative mg/dL (NEG) Urine Blood Large (NEG) Urine Nitrite Negative (NEG) Urine Bilirubin Negative (NEG) Urine Urobilinogen Dipstick 1.0 mg/dL (0.2 mg/dL) Urine Leukocyte Esterase Small (NEG) Urine RBC >40 /HPF (0-2) Urine WBC 11-20 /HPF (0-4) Urine Bacteria 0 /HPF (0-FEW) White Blood Count 8.4 x10^3/uL (4.0-11.0) Red Blood Count 2.41 x10^6/uL (4.30-5.70) Mean Corpuscular Volume 94 fL (79-100) Mean Corpuscular Hemoglobin 33 pg (25-35) Red Cell Distribution Width 15.6 % (11.5-14.5) Platelet Count 164 x10^3/uL (140-400) Neutrophils (%) (Auto) 48 % (31-73) Lymphocytes (%) (Auto) 40 % (24-48) Monocytes (%) (Auto) 8 % (0-9) Eosinophils (%) (Auto) 3 % (0-3) Basophils (%) (Auto) 1 % (0-3) Neutrophils # (Auto) 4.0 x10^3/uL (1.8-7.7) Lymphocytes # (Auto) 3.4 x10^3/uL (1.0-4.8) Monocytes # (Auto) 0.7 x10^3/uL (0.0-1.1) Eosinophils # (Auto) 0.2 x10^3/uL (0.0-0.7) Basophils # (Auto) 0.1 x10^3/uL (0.0-0.2) Sodium Level 141 mmol/L (136-145) Potassium Level 3.6 mmol/L (3.5-5.1) Chloride Level 109 mmol/L (98-107) Carbon Dioxide Level 23 mmol/L (21-32) Anion Gap 9 (6-14) Blood Urea Nitrogen 22 mg/dL (8-26) Creatinine 1.0 mg/dL (0.7-1.3) Estimated GFR (Cockcroft-Gault) 73.2 Glucose Level 96 mg/dL (70-99) Calcium Level 8.5 mg/dL (8.5-10.1) Review of Systems Review of Systems Unreliable given cognitive impairment Assessment and Plan Assessmemt and Plan Problems Medical Problems: (1) Altered level of consciousness Status: Resolved (2) Anemia Status: Acute (3) Dehydration Status: Acute (4) Elevated lactic acid level Status: Resolved (5) Hypoalbuminemia Status: Acute (6) Hypotension Status: Acute (7) Urinary tract infection Status: Acute Comment Review of Relevant I have reviewed the following items torie (where applicable) has been applied. Labs Laboratory Tests Test 07/27/19 03:45 07/27/19 05:04 07/27/19 15:50 07/27/19 16:10 Sodium Level 143 mmol/L (136-145) Potassium Level 3.8 mmol/L (3.5-5.1) Chloride Level 110 mmol/L (98-107) Carbon Dioxide Level 24 mmol/L (21-32) Anion Gap 9 (6-14) Blood Urea Nitrogen 31 mg/dL (8-26) Creatinine 1.0 mg/dL (0.7-1.3) Estimated GFR (Cockcroft-Gault) 73.2 Glucose Level 138 mg/dL (70-99) Calcium Level 7.9 mg/dL (8.5-10.1) Iron Level 40 ug/dL (65-175) Total Iron Binding Capacity 225 ug/dL (250-450) Iron Saturation 18 % (15-34) Vitamin B12 Level > 2000 pg/mL (247-911) Thyroid Stimulating Hormone (TSH) 3.084 uIU/mL (0.358-3.74) Thyroxine (T4) 5.8 ug/dL (4.5-12.0) White Blood Count 7.1 x10^3/uL (4.0-11.0) Red Blood Count 2.02 x10^6/uL (4.30-5.70) Hemoglobin 6.4 g/dL (13.0-17.5) 7.8 g/dL (13.0-17.5) Hematocrit 18.9 % (39.0-53.0) 23.0 % (39.0-53.0) Mean Corpuscular Volume 93 fL (79-100) Mean Corpuscular Hemoglobin 32 pg (25-35) Mean Corpuscular Hemoglobin Concent 34 g/dL (31-37) 34 g/dL (31-37) Red Cell Distribution Width 15.6 % (11.5-14.5) Platelet Count 141 x10^3/uL (140-400) Neutrophils (%) (Auto) 55 % (31-73) Lymphocytes (%) (Auto) 34 % (24-48) Monocytes (%) (Auto) 8 % (0-9) Eosinophils (%) (Auto) 1 % (0-3) Basophils (%) (Auto) 1 % (0-3) Neutrophils # (Auto) 3.9 x10^3/uL (1.8-7.7) Lymphocytes # (Auto) 2.4 x10^3/uL (1.0-4.8) Monocytes # (Auto) 0.6 x10^3/uL (0.0-1.1) Eosinophils # (Auto) 0.1 x10^3/uL (0.0-0.7) Basophils # (Auto) 0.1 x10^3/uL (0.0-0.2) Erythrocyte Sedimentation Rate 37 (0-15) Urine Collection Type Unknown Urine Color Yellow Urine Clarity Clear Urine pH 6.0 Urine Specific [place] 1.015 Urine Protein Negative mg/dL (NEG-TRACE) Urine Glucose (UA) Negative mg/dL (NEG) Urine Ketones (Stick) Negative mg/dL (NEG) Urine Blood Large (NEG) Urine Nitrite Negative (NEG) Urine Bilirubin Negative (NEG) Urine Urobilinogen Dipstick 1.0 mg/dL (0.2 mg/dL) Urine Leukocyte Esterase Small (NEG) Urine RBC >40 /HPF (0-2) Urine WBC 11-20 /HPF (0-4) Urine Bacteria 0 /HPF (0-FEW) Test 07/28/19 04:35 White Blood Count 8.4 x10^3/uL (4.0-11.0) Red Blood Count 2.41 x10^6/uL (4.30-5.70) Hemoglobin 7.9 g/dL (13.0-17.5) Hematocrit 22.7 % (39.0-53.0) Mean Corpuscular Volume 94 fL (79-100) Mean Corpuscular Hemoglobin 33 pg (25-35) Mean Corpuscular Hemoglobin Concent 35 g/dL (31-37) Red Cell Distribution Width 15.6 % (11.5-14.5) Platelet Count 164 x10^3/uL (140-400) Neutrophils (%) (Auto) 48 % (31-73) Lymphocytes (%) (Auto) 40 % (24-48) Monocytes (%) (Auto) 8 % (0-9) Eosinophils (%) (Auto) 3 % (0-3) Basophils (%) (Auto) 1 % (0-3) Neutrophils # (Auto) 4.0 x10^3/uL (1.8-7.7) Lymphocytes # (Auto) 3.4 x10^3/uL (1.0-4.8) Monocytes # (Auto) 0.7 x10^3/uL (0.0-1.1) Eosinophils # (Auto) 0.2 x10^3/uL (0.0-0.7) Basophils # (Auto) 0.1 x10^3/uL (0.0-0.2) Sodium Level 141 mmol/L (136-145) Potassium Level 3.6 mmol/L (3.5-5.1) Chloride Level 109 mmol/L (98-107) Carbon Dioxide Level 23 mmol/L (21-32) Anion Gap 9 (6-14) Blood Urea Nitrogen 22 mg/dL (8-26) Creatinine 1.0 mg/dL (0.7-1.3) Estimated GFR (Cockcroft-Gault) 73.2 Glucose Level 96 mg/dL (70-99) Calcium Level 8.5 mg/dL (8.5-10.1) Laboratory Tests Test 07/27/19 15:50 07/27/19 16:10 07/28/19 04:35 Hemoglobin 7.8 g/dL (13.0-17.5) 7.9 g/dL (13.0-17.5) Hematocrit 23.0 % (39.0-53.0) 22.7 % (39.0-53.0) Mean Corpuscular Hemoglobin Concent 34 g/dL (31-37) 35 g/dL (31-37) Erythrocyte Sedimentation Rate 37 (0-15) Urine Collection Type Unknown Urine Color Yellow Urine Clarity Clear Urine pH 6.0 Urine Specific [place] 1.015 Urine Protein Negative mg/dL (NEG-TRACE) Urine Glucose (UA) Negative mg/dL (NEG) Urine Ketones (Stick) Negative mg/dL (NEG) Urine Blood Large (NEG) Urine Nitrite Negative (NEG) Urine Bilirubin Negative (NEG) Urine Urobilinogen Dipstick 1.0 mg/dL (0.2 mg/dL) Urine Leukocyte Esterase Small (NEG) Urine RBC >40 /HPF (0-2) Urine WBC 11-20 /HPF (0-4) Urine Bacteria 0 /HPF (0-FEW) White Blood Count 8.4 x10^3/uL (4.0-11.0) Red Blood Count 2.41 x10^6/uL (4.30-5.70) Mean Corpuscular Volume 94 fL (79-100) Mean Corpuscular Hemoglobin 33 pg (25-35) Red Cell Distribution Width 15.6 % (11.5-14.5) Platelet Count 164 x10^3/uL (140-400) Neutrophils (%) (Auto) 48 % (31-73) Lymphocytes (%) (Auto) 40 % (24-48) Monocytes (%) (Auto) 8 % (0-9) Eosinophils (%) (Auto) 3 % (0-3) Basophils (%) (Auto) 1 % (0-3) Neutrophils # (Auto) 4.0 x10^3/uL (1.8-7.7) Lymphocytes # (Auto) 3.4 x10^3/uL (1.0-4.8) Monocytes # (Auto) 0.7 x10^3/uL (0.0-1.1) Eosinophils # (Auto) 0.2 x10^3/uL (0.0-0.7) Basophils # (Auto) 0.1 x10^3/uL (0.0-0.2) Sodium Level 141 mmol/L (136-145) Potassium Level 3.6 mmol/L (3.5-5.1) Chloride Level 109 mmol/L (98-107) Carbon Dioxide Level 23 mmol/L (21-32) Anion Gap 9 (6-14) Blood Urea Nitrogen 22 mg/dL (8-26) Creatinine 1.0 mg/dL (0.7-1.3) Estimated GFR (Cockcroft-Gault) 73.2 Glucose Level 96 mg/dL (70-99) Calcium Level 8.5 mg/dL (8.5-10.1) Microbiology 07/25/19 Urine Culture - Final, Complete 07/25/19 Urine Culture Result 1 (TERE) - Final, Complete 07/25/19 Blood Culture - Preliminary, Resulted NO GROWTH AFTER 3 DAYS Medications Current Medications Sodium Chloride 1,000 ml @ 1,000 mls/hr Q1H IV Last administered on 07/25/19at 12:34; Start 07/25/19 at 12:34; Stop 07/25/19 at 13:33; Status DC Ceftriaxone Sodium (Rocephin) 1 gm 1X ONCE IVP Last administered on 07/25/19at 15:29; Start 07/25/19 at 15:00; Stop 07/25/19 at 15:01; Status DC Piperacillin Sod/ Tazobactam Sod 3.375 gm/Sodium Chloride 50 ml @ 100 mls/hr Q6HRS IV Last administered on 07/26/19at 11:47; Start 07/26/19 at 00:00; Stop 07/26/19 at 15:34; Status DC Sodium Chloride 1,000 ml @ 150 mls/hr Q6H40M IV Last administered on 07/26/19at 11:46; Start 07/25/19 at 15:13; Stop 07/26/19 at 15:12; Status DC Fentanyl Citrate (Fentanyl 2ml Vial) 50 mcg 1X ONCE IVP Last administered on 07/25/19at 15:42; Start 07/25/19 at 15:15; Stop 07/25/19 at 15:20; Status DC Piperacillin Sod/ Tazobactam Sod 3.375 gm/Sodium Chloride 50 ml @ 100 mls/hr 1X ONCE IV Last administered on 07/25/19at 15:30; Start 07/25/19 at 16:00; Stop 07/25/19 at 16:29; Status DC Sodium Chloride (Normal Saline Flush) 3 ml QSHIFT PRN IV AFTER MEDS AND BLOOD DRAWS; Start 07/25/19 at 16:45 Sodium Chloride 1,000 ml @ 70 mls/hr [id number] IV Last administered on 07/28/19at 00:42; Start 07/25/19 at 16:32 Ondansetron HCl (Zofran) 4 mg PRN Q4HRS PRN IV NAUSEA/VOMITING; Start 07/25/19 at 16:45 Acetaminophen (Tylenol) 650 mg PRN Q4HRS PRN PO TEMP OVER 100.4F OR MILD PAIN Last administered on 07/26/19at 20:49; Start 07/25/19 at 16:45 Sodium Monofluorophosphate (Fleet Adult) 133 ml PRN DAILY PRN NV CONSTIPATION; Start 07/25/19 at 16:45 Docusate Sodium (Colace) 100 mg PRN BID PRN PO CONSTIPATION; Start 07/25/19 at 16:45 Albuterol/ Ipratropium (Duoneb) 3 ml Q4HRS NEB Last administered on 07/28/19at 00:08; Start 07/25/19 at 20:00; Stop 07/28/19 at 00:50; Status DC Guaifenesin (Robitussin) 200 mg PRN Q4HRS PRN PO COUGH; Start 07/25/19 at 16:45 Lorazepam (Ativan) 0.5 mg PRN Q4HRS PRN PO ANXIETY / AGITATION Last administered on 07/28/19at 12:45; Start 07/25/19 at 16:45 Enoxaparin Sodium (Lovenox 40mg Syringe) 40 mg DAILY SQ Last administered on 07/26/19at 08:46; Start 07/26/19 at 09:00 Donepezil HCl (Aricept) 10 mg DAILY PO Last administered on 07/28/19at 12:46; Start 07/26/19 at 09:00 Memantine (Namenda) 5 mg DAILY PO Last administered on 07/28/19at 12:46; Start 07/26/19 at 09:00; Stop 08/01/19 at 09:01 Memantine (Namenda) 5 mg BID PO ; Start 08/02/19 at 09:00 Gabapentin (Neurontin) 200 mg 1X PO ; Start 07/25/19 at 19:15; Stop 07/25/19 at 20:05; Status DC Gabapentin (Neurontin) 200 mg BID PO Last administered on 07/28/19at 12:45; Start 07/26/19 at 09:00 Gabapentin (Neurontin) 200 mg 1X ONCE PO Last administered on 07/25/19at 20:10; Start 07/25/19 at 20:15; Stop 07/25/19 at 20:16; Status DC Morphine Sulfate (Morphine Sulfate) 2 mg PRN Q4HRS PRN IV SEVERE PAIN 7-10 Last administered on 07/28/19at 00:43; Start 07/26/19 at 00:30 Lactobacillus Rhamnosus (Culturelle) 1 cap BID PO Last administered on 07/28/19at 12:46; Start 07/26/19 at 21:00 Cyanocobalamin (Vitamin B-12) 1,000 mcg 1X ONCE IM Last administered on 07/26/19at 14:03; Start 07/26/19 at 13:30; Stop 07/26/19 at 13:31; Status DC Cyanocobalamin (Vitamin B-12) 1,000 mcg QMONTH IM Last administered on 07/27/19at 09:19; Start 07/27/19 at 09:00 Levofloxacin/ Dextrose 100 ml @ 100 mls/hr Q24H IV Last administered on 07/27/19at 14:08; Start 07/27/19 at 12:00 Pantoprazole Sodium (Protonix) 40 mg DAILYAC PO Last administered on 07/28/19at 12:46; Start 07/27/19 at 17:00 Iohexol (Omnipaque 240 Mg/ml) 30 ml 1X ONCE PO Last administered on 07/27/19at 22:55; Start 07/27/19 at 23:00; Stop 07/27/19 at 23:01; Status DC Iohexol (Omnipaque 300 Mg/ml) 75 ml 1X ONCE IV Last administered on 07/27/19at 22:55; Start 07/27/19 at 23:00; Stop 07/27/19 at 23:01; Status DC Info (CONTRAST GIVEN -- Rx MONITORING) 1 each PRN DAILY PRN MC SEE COMMENTS; Start 07/27/19 at 23:00; Stop 07/29/19 at 22:59 Albuterol/ Ipratropium (Duoneb) 3 ml RTQID NEB Last administered on 07/28/19at 08:00; Start 07/28/19 at 08:00 Ringer's Solution 1,000 ml @ 75 mls/hr 1X ONCE IV ; Start 07/28/19 at 10:45; Stop 07/29/19 at 00:04 Propofol 20 ml @ As Directed STK-MED ONCE IV ; Start 07/28/19 at 11:40; Stop 07/28/19 at 11:40; Status DC Lidocaine HCl (Lidocaine Pf 2% Vial) 5 ml STK-MED ONCE .ROUTE ; Start 07/28/19 at 11:40; Stop 07/28/19 at 11:40; Status DC Polyethylene Glycol (miraLAX PACKET) 17 gm DAILY PO ; Start 07/28/19 at 14:00 Active Scripts Active Wall 5-325 Tablet (Acetaminophen/Hydrocodone Bitart) 1 Each Tablet 1-2 Each PO PRN Q6HRS PRN as needed for pain Reported D3-50 (Cholecalciferol (Vitamin D3)) 50,000 Unit Capsule 50,000 Unit PO DAILY Finasteride 5 Mg Tablet 5 Mg PO DAILY Flomax (Tamsulosin Hcl) 0.4 Mg Cap.er.24h 0.4 Mg PO DAILY Venlafaxine Hcl 75 Mg Tablet 75 Mg PO BID Donepezil Hcl 10 Mg Tablet 1 Tab PO DAILY Morphine Sulfate Er (Morphine Sulfate) 15 Mg Tablet.er 15 Mg PO BID Amitriptyline Hcl 25 Mg Tablet 1 Tab PO QHS Gabapentin (Gabapentin) 300 Mg Capsule 300 Mg PO TID Potassium Chloride (Potassium Chloride) 20 Meq Tablet.er 20 Meq PO DAILY Vitals/I & O Vital Sign - Last 24 Hours 07/27/19 07/27/19 07/27/19 07/27/19 15:00 19:00 19:51 20:04 Temp 98.0 98.8 98.0 98.8 Pulse 95 92 Resp 18 14 B/P (MAP) 104/67 (79) 97/56 (70) Pulse Ox 96 93 O2 Delivery Room Air Room Air Room Air 1/04/0707/27/19 07/28/19 07/28/19 23:00 23:56 00:43 01:13 Temp 98.4 98.4 Pulse 80 Resp 16 B/P (MAP) 103/65 (78) Pulse Ox 91 O2 Delivery Room Air Room Air Room Air Room Air 07/28/19 07/28/19 07/28/19 07/28/19 03:00 07:00 08:11 10:29 Temp 98.1 98.1 98.1 98.1 98.1 98.1 Pulse 89 79 86 Resp 16 20 20 B/P (MAP) 100/62 (75) 119/79 (92) Pulse Ox 95 96 96 96 O2 Delivery Room Air Room Air 07/28/19 07/28/19 11:57 12:17 Temp 97.5 97.5 Pulse 73 74 Resp 16 20 B/P (MAP) 101/56 120/58 Pulse Ox 94 94 O2 Delivery Nasal Cannula Room Air O2 Flow Rate 3 Intake and Output 07/27/19 07/27/19 07/28/19 15:00 23:00 07:00 Intake Total 825 ml 400 ml 620 ml Balance 825 ml 400 ml 620 ml JOCY BROWNLEE MD Jul 28, 2019 14:32
[2019-07-28] MEDS: POLYETHYLENE GLYCOL 3350 17 GM PACKET. PO SCH (16:04)
[2019-07-28] MEDS ORDERED: ZIPRASIDONE IM 20 MG VIAL. IM PRN (17:00)
[2019-07-28 19:30] VITALS: BP 146/65
[2019-07-28 23:07] VITALS: BP 104/61
[2019-07-29] MEDS: LORazepam 0.5 MG TABLET PO PRN ×2 (01:54→20:58)
[2019-07-29 03:46] VITALS: BP 129/71
[2019-07-29 05:24] LABS: BASO # 0.1 x10^3/uL (0.0-0.2); BASO % 1 % (0-3); EOS # 0.2 x10^3/uL (0.0-0.7); EOS % 3 % (0-3); HEMATOCRIT 23.2 % (39.0-53.0); LYMPH # 2.1 x10^3/uL (1.0-4.8); LYMPH % 30 % (24-48); MEAN CORPUSCULAR HEMOGLOBIN 33 pg (25-35); MEAN CORPUSCULAR HGB CONC 34 g/dL (31-37); MEAN CORPUSCULAR VOLUME 95 fL (79-100); MONO # 0.6 x10^3/uL (0.0-1.1); MONO % 9 % (0-9); NEUT # 4.1 x10^3/uL (1.8-7.7); NEUT % 57 % (31-73); PLATELET COUNT 202 x10^3/uL (140-400); RED BLOOD COUNT 2.46 x10^6/uL (4.30-5.70); RED CELL DISTRIBUTION WIDTH 15.7 % (11.5-14.5); WHITE BLOOD COUNT 7.1 x10^3/uL (4.0-11.0)
[2019-07-29 05:35] LABS: CALCIUM 8.5 mg/dL (8.5-10.1); GFR 73.2; POTASSIUM 3.4 mmol/L (3.5-5.1)
[2019-07-29 07:00] VITALS: BP 108/67
[2019-07-29] MEDS: POLYETHYLENE GLYCOL 3350 17 GM PACKET. PO SCH (09:00)
[2019-07-29] MEDS: ENOXAPARIN 40 MG/0.4 ML SYRINGE. SQ SCH (09:00)
[2019-07-29] MEDS: LACTOBACILLUS RHAMNOSUS GG 1 CAPSULE. PO SCH ×2 (09:02→20:58)
[2019-07-29] MEDS: PANTOPRAZOLE 40 MG TABLET.DR. PO SCH (09:02)
[2019-07-29] MEDS: GABAPENTIN 100 MG CAPSULE. PO SCH ×2 (09:03→20:59)
[2019-07-29] MEDS: DONEPEZIL HCL 10 MG TABLET. PO SCH (09:03)
[2019-07-29] MEDS: MEMANTINE 5 MG TABLET. PO SCH (09:03)
[2019-07-29] MEDS: IPRATRPIUM/ALBUTEROL 0.5/2.5MG 3 ML NEBU. NEB SCH ×4 (09:39→21:14)
--- NOTE | 2019-07-29 10:17 | PDOC ---
PROGRESS NOTES Chief Complaint Chief Complaint 1. dementia with delirium, improved, 2. Leukocytosis , SIRS 3. cognitive decline x months, patient with worsening dementia. Patient will likely need placement. Mild foci of decreased aeration within the hemispheric white matter, most often due to chronic microvascular ischemia. ct head 07/25 4. severe protein-caloric malnutrition 5. HX copd, remote heavy tobacco abuse 6. abnormal weight loss, recent 7. anemia, with weaskness 8. hematuria has resolved History of Present Illness History of Present Illness 07/29/19 Patient pleasant - keeps telling us that he will be in a dance show tomrrow otherwise, he is unable to have a meaningful conversation Power of associate attorney paperwork has been brought by his daughter. Vitals Vitals Vital Signs Date Time Temp Pulse Resp B/P (MAP) Pulse Ox O2 Delivery O2 Flow Rate FiO2 07/29/19 09:51 95 Room Air 07/29/19 07:00 98.1 68 18 108/67 (81) 98.1 07/28/19 11:57 3 Physical Exam Physical Exam GENERAL: Alert and oriented gentleman, not in distress. VITAL SIGNS: Stable, afebrile. HEENT: NAD. NECK: Supple. No JVP, no lymphadenopathy. LUNGS: Clear. HEART: S1, S2 regular. ABDOMEN: Benign. EXTREMITIES: No edema or cyanosis. SKIN: Unremarkable. NEUROLOGIC: The patient is neurologically alert, awake, able to communicate simple things, but memory is poor. MSK: sharp pain localized of right ribs General: Cooperative, No acute distress Heart: Regular rate, Normal S1, Normal S2 Lungs: Clear Abdomen: Soft, No tenderness, Other (thin) Extremities: No clubbing Labs LABS Laboratory Tests Test 07/29/19 04:20 White Blood Count 7.1 x10^3/uL (4.0-11.0) Red Blood Count 2.46 x10^6/uL (4.30-5.70) Hemoglobin 8.0 g/dL (13.0-17.5) Hematocrit 23.2 % (39.0-53.0) Mean Corpuscular Volume 95 fL (79-100) Mean Corpuscular Hemoglobin 33 pg (25-35) Mean Corpuscular Hemoglobin Concent 34 g/dL (31-37) Red Cell Distribution Width 15.7 % (11.5-14.5) Platelet Count 202 x10^3/uL (140-400) Neutrophils (%) (Auto) 57 % (31-73) Lymphocytes (%) (Auto) 30 % (24-48) Monocytes (%) (Auto) 9 % (0-9) Eosinophils (%) (Auto) 3 % (0-3) Basophils (%) (Auto) 1 % (0-3) Neutrophils # (Auto) 4.1 x10^3/uL (1.8-7.7) Lymphocytes # (Auto) 2.1 x10^3/uL (1.0-4.8) Monocytes # (Auto) 0.6 x10^3/uL (0.0-1.1) Eosinophils # (Auto) 0.2 x10^3/uL (0.0-0.7) Basophils # (Auto) 0.1 x10^3/uL (0.0-0.2) Sodium Level 144 mmol/L (136-145) Potassium Level 3.4 mmol/L (3.5-5.1) Chloride Level 109 mmol/L (98-107) Carbon Dioxide Level 27 mmol/L (21-32) Anion Gap 8 (6-14) Blood Urea Nitrogen 20 mg/dL (8-26) Creatinine 1.0 mg/dL (0.7-1.3) Estimated GFR (Cockcroft-Gault) 73.2 Glucose Level 116 mg/dL (70-99) Calcium Level 8.5 mg/dL (8.5-10.1) Assessment and Plan Assessmemt and Plan Problems Medical Problems: (1) Altered level of consciousness Status: Acute (2) Anemia Status: Acute (3) Dehydration Status: Acute (4) Elevated lactic acid level Status: Acute (5) Hypoalbuminemia Status: Acute (6) Hypotension Status: Acute (7) Urinary tract infection Status: Acute Comment Review of Relevant I have reviewed the following items torie (where applicable) has been applied. Labs Laboratory Tests Test 07/27/19 15:50 07/27/19 16:10 07/28/19 04:35 07/29/19 04:20 Hemoglobin 7.8 g/dL (13.0-17.5) 7.9 g/dL (13.0-17.5) 8.0 g/dL (13.0-17.5) Hematocrit 23.0 % (39.0-53.0) 22.7 % (39.0-53.0) 23.2 % (39.0-53.0) Mean Corpuscular Hemoglobin Concent 34 g/dL (31-37) 35 g/dL (31-37) 34 g/dL (31-37) Erythrocyte Sedimentation Rate 37 (0-15) Urine Collection Type Unknown Urine Color Yellow Urine Clarity Clear Urine pH 6.0 Urine Specific [place] 1.015 Urine Protein Negative mg/dL (NEG-TRACE) Urine Glucose (UA) Negative mg/dL (NEG) Urine Ketones (Stick) Negative mg/dL (NEG) Urine Blood Large (NEG) Urine Nitrite Negative (NEG) Urine Bilirubin Negative (NEG) Urine Urobilinogen Dipstick 1.0 mg/dL (0.2 mg/dL) Urine Leukocyte Esterase Small (NEG) Urine RBC >40 /HPF (0-2) Urine WBC 11-20 /HPF (0-4) Urine Bacteria 0 /HPF (0-FEW) White Blood Count 8.4 x10^3/uL (4.0-11.0) 7.1 x10^3/uL (4.0-11.0) Red Blood Count 2.41 x10^6/uL (4.30-5.70) 2.46 x10^6/uL (4.30-5.70) Mean Corpuscular Volume 94 fL (79-100) 95 fL (79-100) Mean Corpuscular Hemoglobin 33 pg (25-35) 33 pg (25-35) Red Cell Distribution Width 15.6 % (11.5-14.5) 15.7 % (11.5-14.5) Platelet Count 164 x10^3/uL (140-400) 202 x10^3/uL (140-400) Neutrophils (%) (Auto) 48 % (31-73) 57 % (31-73) Lymphocytes (%) (Auto) 40 % (24-48) 30 % (24-48) Monocytes (%) (Auto) 8 % (0-9) 9 % (0-9) Eosinophils (%) (Auto) 3 % (0-3) 3 % (0-3) Basophils (%) (Auto) 1 % (0-3) 1 % (0-3) Neutrophils # (Auto) 4.0 x10^3/uL (1.8-7.7) 4.1 x10^3/uL (1.8-7.7) Lymphocytes # (Auto) 3.4 x10^3/uL (1.0-4.8) 2.1 x10^3/uL (1.0-4.8) Monocytes # (Auto) 0.7 x10^3/uL (0.0-1.1) 0.6 x10^3/uL (0.0-1.1) Eosinophils # (Auto) 0.2 x10^3/uL (0.0-0.7) 0.2 x10^3/uL (0.0-0.7) Basophils # (Auto) 0.1 x10^3/uL (0.0-0.2) 0.1 x10^3/uL (0.0-0.2) Sodium Level 141 mmol/L (136-145) 144 mmol/L (136-145) Potassium Level 3.6 mmol/L (3.5-5.1) 3.4 mmol/L (3.5-5.1) Chloride Level 109 mmol/L (98-107) 109 mmol/L (98-107) Carbon Dioxide Level 23 mmol/L (21-32) 27 mmol/L (21-32) Anion Gap 9 (6-14) 8 (6-14) Blood Urea Nitrogen 22 mg/dL (8-26) 20 mg/dL (8-26) Creatinine 1.0 mg/dL (0.7-1.3) 1.0 mg/dL (0.7-1.3) Estimated GFR (Cockcroft-Gault) 73.2 73.2 Glucose Level 96 mg/dL (70-99) 116 mg/dL (70-99) Calcium Level 8.5 mg/dL (8.5-10.1) 8.5 mg/dL (8.5-10.1) Laboratory Tests Test 07/29/19 04:20 White Blood Count 7.1 x10^3/uL (4.0-11.0) Red Blood Count 2.46 x10^6/uL (4.30-5.70) Hemoglobin 8.0 g/dL (13.0-17.5) Hematocrit 23.2 % (39.0-53.0) Mean Corpuscular Volume 95 fL (79-100) Mean Corpuscular Hemoglobin 33 pg (25-35) Mean Corpuscular Hemoglobin Concent 34 g/dL (31-37) Red Cell Distribution Width 15.7 % (11.5-14.5) Platelet Count 202 x10^3/uL (140-400) Neutrophils (%) (Auto) 57 % (31-73) Lymphocytes (%) (Auto) 30 % (24-48) Monocytes (%) (Auto) 9 % (0-9) Eosinophils (%) (Auto) 3 % (0-3) Basophils (%) (Auto) 1 % (0-3) Neutrophils # (Auto) 4.1 x10^3/uL (1.8-7.7) Lymphocytes # (Auto) 2.1 x10^3/uL (1.0-4.8) Monocytes # (Auto) 0.6 x10^3/uL (0.0-1.1) Eosinophils # (Auto) 0.2 x10^3/uL (0.0-0.7) Basophils # (Auto) 0.1 x10^3/uL (0.0-0.2) Sodium Level 144 mmol/L (136-145) Potassium Level 3.4 mmol/L (3.5-5.1) Chloride Level 109 mmol/L (98-107) Carbon Dioxide Level 27 mmol/L (21-32) Anion Gap 8 (6-14) Blood Urea Nitrogen 20 mg/dL (8-26) Creatinine 1.0 mg/dL (0.7-1.3) Estimated GFR (Cockcroft-Gault) 73.2 Glucose Level 116 mg/dL (70-99) Calcium Level 8.5 mg/dL (8.5-10.1) Microbiology 07/25/19 Urine Culture - Final, Complete 07/25/19 Urine Culture Result 1 (TERE) - Final, Complete 07/25/19 Blood Culture - Preliminary, Resulted NO GROWTH AFTER 3 DAYS Medications Current Medications Sodium Chloride 1,000 ml @ 1,000 mls/hr Q1H IV Last administered on 07/25/19at 12:34; Start 07/25/19 at 12:34; Stop 07/25/19 at 13:33; Status DC Ceftriaxone Sodium (Rocephin) 1 gm 1X ONCE IVP Last administered on 07/25/19at 15:29; Start 07/25/19 at 15:00; Stop 07/25/19 at 15:01; Status DC Piperacillin Sod/ Tazobactam Sod 3.375 gm/Sodium Chloride 50 ml @ 100 mls/hr Q6HRS IV Last administered on 07/26/19at 11:47; Start 07/26/19 at 00:00; Stop 07/26/19 at 15:34; Status DC Sodium Chloride 1,000 ml @ 150 mls/hr Q6H40M IV Last administered on 07/26/19at 11:46; Start 07/25/19 at 15:13; Stop 07/26/19 at 15:12; Status DC Fentanyl Citrate (Fentanyl 2ml Vial) 50 mcg 1X ONCE IVP Last administered on 07/25/19at 15:42; Start 07/25/19 at 15:15; Stop 07/25/19 at 15:20; Status DC Piperacillin Sod/ Tazobactam Sod 3.375 gm/Sodium Chloride 50 ml @ 100 mls/hr 1X ONCE IV Last administered on 07/25/19at 15:30; Start 07/25/19 at 16:00; Stop 07/25/19 at 16:29; Status DC Sodium Chloride (Normal Saline Flush) 3 ml QSHIFT PRN IV AFTER MEDS AND BLOOD DRAWS; Start 07/25/19 at 16:45 Sodium Chloride 1,000 ml @ 70 mls/hr [id number] IV Last administered on 07/28/19at 16:01; Start 07/25/19 at 16:32; Stop 07/28/19 at 16:53; Status DC Ondansetron HCl (Zofran) 4 mg PRN Q4HRS PRN IV NAUSEA/VOMITING; Start 07/25/19 at 16:45 Acetaminophen (Tylenol) 650 mg PRN Q4HRS PRN PO TEMP OVER 100.4F OR MILD PAIN Last administered on 07/26/19at 20:49; Start 07/25/19 at 16:45 Sodium Monofluorophosphate (Fleet Adult) 133 ml PRN DAILY PRN ND CONSTIPATION; Start 07/25/19 at 16:45 Docusate Sodium (Colace) 100 mg PRN BID PRN PO CONSTIPATION; Start 07/25/19 at 16:45 Albuterol/ Ipratropium (Duoneb) 3 ml Q4HRS NEB Last administered on 07/28/19at 00:08; Start 07/25/19 at 20:00; Stop 07/28/19 at 00:50; Status DC Guaifenesin (Robitussin) 200 mg PRN Q4HRS PRN PO COUGH; Start 07/25/19 at 16:45 Lorazepam (Ativan) 0.5 mg PRN Q4HRS PRN PO ANXIETY / AGITATION Last administered on 07/29/19at 01:54; Start 07/25/19 at 16:45 Enoxaparin Sodium (Lovenox 40mg Syringe) 40 mg DAILY SQ Last administered on 07/26/19at 08:46; Start 07/26/19 at 09:00 Donepezil HCl (Aricept) 10 mg DAILY PO Last administered on 07/29/19at 09:03; Start 07/26/19 at 09:00 Memantine (Namenda) 5 mg DAILY PO Last administered on 07/29/19at 09:03; Start 07/26/19 at 09:00; Stop 08/01/19 at 09:01 Memantine (Namenda) 5 mg BID PO ; Start 08/02/19 at 09:00 Gabapentin (Neurontin) 200 mg 1X PO ; Start 07/25/19 at 19:15; Stop 07/25/19 at 20:05; Status DC Gabapentin (Neurontin) 200 mg BID PO Last administered on 07/29/19at 09:03; Start 07/26/19 at 09:00 Gabapentin (Neurontin) 200 mg 1X ONCE PO Last administered on 07/25/19at 20:10; Start 07/25/19 at 20:15; Stop 07/25/19 at 20:16; Status DC Morphine Sulfate (Morphine Sulfate) 2 mg PRN Q4HRS PRN IV SEVERE PAIN 7-10 Last administered on 07/28/19at 00:43; Start 07/26/19 at 00:30 Lactobacillus Rhamnosus (Culturelle) 1 cap BID PO Last administered on 07/29/19at 09:02; Start 07/26/19 at 21:00 Cyanocobalamin (Vitamin B-12) 1,000 mcg 1X ONCE IM Last administered on 07/26/19at 14:03; Start 07/26/19 at 13:30; Stop 07/26/19 at 13:31; Status DC Cyanocobalamin (Vitamin B-12) 1,000 mcg QMONTH IM Last administered on 07/27/19at 09:19; Start 07/27/19 at 09:00 Levofloxacin/ Dextrose 100 ml @ 100 mls/hr Q24H IV Last administered on 07/28/19at 16:04; Start 07/27/19 at 12:00; Stop 07/28/19 at 16:53; Status DC Pantoprazole Sodium (Protonix) 40 mg DAILYAC PO Last administered on 07/29/19at 09:02; Start 07/27/19 at 17:00 Iohexol (Omnipaque 240 Mg/ml) 30 ml 1X ONCE PO Last administered on 07/27/19at 22:55; Start 07/27/19 at 23:00; Stop 07/27/19 at 23:01; Status DC Iohexol (Omnipaque 300 Mg/ml) 75 ml 1X ONCE IV Last administered on 07/27/19at 22:55; Start 07/27/19 at 23:00; Stop 07/27/19 at 23:01; Status DC Info (CONTRAST GIVEN -- Rx MONITORING) 1 each PRN DAILY PRN MC SEE COMMENTS; Start 07/27/19 at 23:00; Stop 07/29/19 at 22:59 Albuterol/ Ipratropium (Duoneb) 3 ml RTQID NEB Last administered on 07/29/19at 09:39; Start 07/28/19 at 08:00 Ringer's Solution 1,000 ml @ 75 mls/hr 1X ONCE IV ; Start 07/28/19 at 10:45; Stop 07/29/19 at 00:04; Status DC Propofol 20 ml @ As Directed STK-MED ONCE IV ; Start 07/28/19 at 11:40; Stop 07/28/19 at 11:40; Status DC Lidocaine HCl (Lidocaine Pf 2% Vial) 5 ml STK-MED ONCE .ROUTE ; Start 07/28/19 at 11:40; Stop 07/28/19 at 11:40; Status DC Polyethylene Glycol (miraLAX PACKET) 17 gm DAILY PO Last administered on 07/28/19at 16:04; Start 07/28/19 at 14:00 Ziprasidone (Geodon Im) 20 mg 1X PRN IM agitation; Start 07/28/19 at 17:00 Levofloxacin (Levaquin) 750 mg DAILY06 PO Last administered on 07/29/19at 07:29; Start 07/29/19 at 06:00 Active Scripts Active [place] 5-325 Tablet (Acetaminophen/Hydrocodone Bitart) 1 Each Tablet 1-2 Each PO PRN Q6HRS PRN as needed for pain Reported D3-50 (Cholecalciferol (Vitamin D3)) 50,000 Unit Capsule 50,000 Unit PO DAILY Finasteride 5 Mg Tablet 5 Mg PO DAILY Flomax (Tamsulosin Hcl) 0.4 Mg Cap.er.24h 0.4 Mg PO DAILY Venlafaxine Hcl 75 Mg Tablet 75 Mg PO BID Donepezil Hcl 10 Mg Tablet 1 Tab PO DAILY Morphine Sulfate Er (Morphine Sulfate) 15 Mg Tablet.er 15 Mg PO BID Amitriptyline Hcl 25 Mg Tablet 1 Tab PO QHS Gabapentin (Gabapentin) 300 Mg Capsule 300 Mg PO TID Potassium Chloride (Potassium Chloride) 20 Meq Tablet.er 20 Meq PO DAILY Vitals/I & O Vital Sign - Last 24 Hours 07/28/19 07/28/19 07/28/19 07/28/19 10:29 11:57 12:17 15:00 Temp 98.1 97.5 98.1 97.5 Pulse 86 73 74 Resp 20 16 20 B/P (MAP) 101/56 120/58 Pulse Ox 96 94 94 O2 Delivery Nasal Cannula Room Air Room Air O2 Flow Rate 3 07/28/19 07/28/19 07/28/19 07/28/19 19:30 20:05 21:55 23:07 Temp 98.0 97.8 98.0 97.8 Pulse 76 83 Resp 16 16 B/P (MAP) 146/65 (92) 104/61 (75) Pulse Ox 96 96 96 O2 Delivery Room Air Room Air Room Air Room Air 07/29/19 07/29/19 07/29/19 07/29/19 03:46 07:00 08:00 09:51 Temp 98.0 98.1 98.0 98.1 Pulse 78 68 Resp 16 18 B/P (MAP) 129/71 (90) 108/67 (81) Pulse Ox 97 97 95 O2 Delivery Room Air Room Air Room Air Room Air Intake and Output 07/28/19 07/28/19 07/29/19 15:00 23:00 07:00 Intake Total 200 ml 340 ml Output Total 700 ml Balance -700 ml 200 ml 340 ml ARLEEN SANTIAGO MD Jul 29, 2019 10:17
[2019-07-29 11:00] VITALS: BP 97/54
--- NOTE | 2019-07-29 11:50 | RAD ---
Exam performed: Bilateral ankles 2 views. HISTORY: Bilateral ankle swelling. DATE OF SERVICE: 07/29/2019 COMPARISON: None available FINDINGS: AP, lateral and oblique views of bilateral ankles is obtained. There are postoperative changes about the left ankle with a side plate along the distal fibula and 3 screws along the distal tibia and fibula. There is an acute nondisplaced fracture with avulsion fragment along the medial malleolus with diffuse overlying soft tissue swelling. No soft tissue foreign body is identified. There is diffuse soft tissue swelling around the right ankle without underlying acute fracture or dislocation. No soft tissue foreign bodies identified. IMPRESSION: Acute nondisplaced fracture medial malleolus with diffuse overlying soft tissue swelling. Postoperative changes are noted about the distal tibia and fibula. Diffuse soft tissue swelling about the right ankle without underlying bony abnormality. Electronically signed by: Cari Escalera MD (07/29/2019 11:48 AM) [facility]
[2019-07-29 15:00] VITALS: BP 110/64
[2019-07-29 19:00] VITALS: BP 115/79
--- NOTE | 2019-07-29 20:09 | PDOC ---
PROGRESS NOTES Assessment Problems Medical Problems: (1) Altered level of consciousness Status: Acute (2) Anemia Status: Acute (3) Dehydration Status: Acute (4) Elevated lactic acid level Status: Acute (5) Hypoalbuminemia Status: Acute (6) Hypotension Status: Acute (7) Urinary tract infection Status: Acute Masslike circumferential wall thickening of the mid to lower rectum concerning for malignancy, colonoscopy negative. Indeterminate lytic lesions of the L1 and L2 lumbar vertebra. Metastatic lesions are not excluded. Fusiform aneurysm of the abdominal aorta with a diameter of 4.8 cm. 1 cm indeterminate hyperdense lesion of the left renal upper pole lateral cortex could represent a hemorrhagic cyst Note lab work, TSH, T4, B12, sedimentation rate was drawn on wrong patient. These labs were redrawn, positive for elevated sedimentation rate. Note, though, B12 was drawn after I gave him injections, no harm to the patient. Dementia, consistent with Alzheimer's CT x2 negative for stroke Hypotension and falls, I doubt that he's had a stroke, I see no evidence of vestibular abnormality, myelopathy, radiculopathy, or neuropathy. I don't see any evidence of acute central nervous system infection. Note leukocytosis, lactic acidosis, infectious disease finds no evidence of infection; resolved History of trigeminal neuralgia Evidence of old craniotomy on CT head, he had a melanoma removed Severe anemia, stable, no further bleeding Plan Oncology and GI workup Resumed donepezil Added memantine B12 injections finished Hold on temporal artery biopsy Needs SNU Subjective no complaints Objective Vital Signs Date Time Temp Pulse Resp B/P (MAP) Pulse Ox O2 Delivery O2 Flow Rate FiO2 07/29/19 16:29 96 Room Air 07/29/19 15:00 98.9 79 18 110/64 (79) 98.9 07/28/19 11:57 3 Intake and Output 07/29/19 07:00 Intake Total 540 ml Output Total 700 ml Balance -160 ml Intake Oral 540 ml Output Urine Total 700 ml # Voids 4 # Bowel Movements 1 PHYSICAL EXAM Alert. Knows location, not date, not name of president, names and repeats well, speech fluent. He says that he is going to be in a show tomorrow but realizes I do not believe him. PERRL. EOMI. CN: no focal findings. Muscle tone: normal. Muscle strength: 5/5 DTR: 2+ Plantar reflex: flexor Gait: not examined in bed. Sensory exam: no abnormal findings. No cerebellar signs elicited. Bilateral grasp reflexes Review of Relevant I have reviewed the following items torie (where applicable) has been applied. Labs Laboratory Tests Test 07/28/19 04:35 07/29/19 04:20 White Blood Count 8.4 x10^3/uL (4.0-11.0) 7.1 x10^3/uL (4.0-11.0) Red Blood Count 2.41 x10^6/uL (4.30-5.70) 2.46 x10^6/uL (4.30-5.70) Hemoglobin 7.9 g/dL (13.0-17.5) 8.0 g/dL (13.0-17.5) Hematocrit 22.7 % (39.0-53.0) 23.2 % (39.0-53.0) Mean Corpuscular Volume 94 fL (79-100) 95 fL (79-100) Mean Corpuscular Hemoglobin 33 pg (25-35) 33 pg (25-35) Mean Corpuscular Hemoglobin Concent 35 g/dL (31-37) 34 g/dL (31-37) Red Cell Distribution Width 15.6 % (11.5-14.5) 15.7 % (11.5-14.5) Platelet Count 164 x10^3/uL (140-400) 202 x10^3/uL (140-400) Neutrophils (%) (Auto) 48 % (31-73) 57 % (31-73) Lymphocytes (%) (Auto) 40 % (24-48) 30 % (24-48) Monocytes (%) (Auto) 8 % (0-9) 9 % (0-9) Eosinophils (%) (Auto) 3 % (0-3) 3 % (0-3) Basophils (%) (Auto) 1 % (0-3) 1 % (0-3) Neutrophils # (Auto) 4.0 x10^3/uL (1.8-7.7) 4.1 x10^3/uL (1.8-7.7) Lymphocytes # (Auto) 3.4 x10^3/uL (1.0-4.8) 2.1 x10^3/uL (1.0-4.8) Monocytes # (Auto) 0.7 x10^3/uL (0.0-1.1) 0.6 x10^3/uL (0.0-1.1) Eosinophils # (Auto) 0.2 x10^3/uL (0.0-0.7) 0.2 x10^3/uL (0.0-0.7) Basophils # (Auto) 0.1 x10^3/uL (0.0-0.2) 0.1 x10^3/uL (0.0-0.2) Sodium Level 141 mmol/L (136-145) 144 mmol/L (136-145) Potassium Level 3.6 mmol/L (3.5-5.1) 3.4 mmol/L (3.5-5.1) Chloride Level 109 mmol/L (98-107) 109 mmol/L (98-107) Carbon Dioxide Level 23 mmol/L (21-32) 27 mmol/L (21-32) Anion Gap 9 (6-14) 8 (6-14) Blood Urea Nitrogen 22 mg/dL (8-26) 20 mg/dL (8-26) Creatinine 1.0 mg/dL (0.7-1.3) 1.0 mg/dL (0.7-1.3) Estimated GFR (Cockcroft-Gault) 73.2 73.2 Glucose Level 96 mg/dL (70-99) 116 mg/dL (70-99) Calcium Level 8.5 mg/dL (8.5-10.1) 8.5 mg/dL (8.5-10.1) Laboratory Tests Test 07/29/19 04:20 White Blood Count 7.1 x10^3/uL (4.0-11.0) Red Blood Count 2.46 x10^6/uL (4.30-5.70) Hemoglobin 8.0 g/dL (13.0-17.5) Hematocrit 23.2 % (39.0-53.0) Mean Corpuscular Volume 95 fL (79-100) Mean Corpuscular Hemoglobin 33 pg (25-35) Mean Corpuscular Hemoglobin Concent 34 g/dL (31-37) Red Cell Distribution Width 15.7 % (11.5-14.5) Platelet Count 202 x10^3/uL (140-400) Neutrophils (%) (Auto) 57 % (31-73) Lymphocytes (%) (Auto) 30 % (24-48) Monocytes (%) (Auto) 9 % (0-9) Eosinophils (%) (Auto) 3 % (0-3) Basophils (%) (Auto) 1 % (0-3) Neutrophils # (Auto) 4.1 x10^3/uL (1.8-7.7) Lymphocytes # (Auto) 2.1 x10^3/uL (1.0-4.8) Monocytes # (Auto) 0.6 x10^3/uL (0.0-1.1) Eosinophils # (Auto) 0.2 x10^3/uL (0.0-0.7) Basophils # (Auto) 0.1 x10^3/uL (0.0-0.2) Sodium Level 144 mmol/L (136-145) Potassium Level 3.4 mmol/L (3.5-5.1) Chloride Level 109 mmol/L (98-107) Carbon Dioxide Level 27 mmol/L (21-32) Anion Gap 8 (6-14) Blood Urea Nitrogen 20 mg/dL (8-26) Creatinine 1.0 mg/dL (0.7-1.3) Estimated GFR (Cockcroft-Gault) 73.2 Glucose Level 116 mg/dL (70-99) Calcium Level 8.5 mg/dL (8.5-10.1) Microbiology 07/25/19 Urine Culture - Final, Complete 07/25/19 Urine Culture Result 1 (TERE) - Final, Complete 07/25/19 Blood Culture - Preliminary, Resulted NO GROWTH AFTER 4 DAYS Medications Current Medications Sodium Chloride 1,000 ml @ 1,000 mls/hr Q1H IV Last administered on 07/25/19at 12:34; Start 07/25/19 at 12:34; Stop 07/25/19 at 13:33; Status DC Ceftriaxone Sodium (Rocephin) 1 gm 1X ONCE IVP Last administered on 07/25/19at 15:29; Start 07/25/19 at 15:00; Stop 07/25/19 at 15:01; Status DC Piperacillin Sod/ Tazobactam Sod 3.375 gm/Sodium Chloride 50 ml @ 100 mls/hr Q6HRS IV Last administered on 07/26/19at 11:47; Start 07/26/19 at 00:00; Stop 07/26/19 at 15:34; Status DC Sodium Chloride 1,000 ml @ 150 mls/hr Q6H40M IV Last administered on 07/26/19at 11:46; Start 07/25/19 at 15:13; Stop 07/26/19 at 15:12; Status DC Fentanyl Citrate (Fentanyl 2ml Vial) 50 mcg 1X ONCE IVP Last administered on 07/25/19at 15:42; Start 07/25/19 at 15:15; Stop 07/25/19 at 15:20; Status DC Piperacillin Sod/ Tazobactam Sod 3.375 gm/Sodium Chloride 50 ml @ 100 mls/hr 1X ONCE IV Last administered on 07/25/19at 15:30; Start 07/25/19 at 16:00; Stop 07/25/19 at 16:29; Status DC Sodium Chloride (Normal Saline Flush) 3 ml QSHIFT PRN IV AFTER MEDS AND BLOOD DRAWS; Start 07/25/19 at 16:45 Sodium Chloride 1,000 ml @ 70 mls/hr [id number] IV Last administered on 07/28/19at 16:01; Start 07/25/19 at 16:32; Stop 07/28/19 at 16:53; Status DC Ondansetron HCl (Zofran) 4 mg PRN Q4HRS PRN IV NAUSEA/VOMITING; Start 07/25/19 at 16:45 Acetaminophen (Tylenol) 650 mg PRN Q4HRS PRN PO TEMP OVER 100.4F OR MILD PAIN Last administered on 07/26/19at 20:49; Start 07/25/19 at 16:45 Sodium Monofluorophosphate (Fleet Adult) 133 ml PRN DAILY PRN [place] CONSTIPATION; Start 07/25/19 at 16:45 Docusate Sodium (Colace) 100 mg PRN BID PRN PO CONSTIPATION; Start 07/25/19 at 16:45 Albuterol/ Ipratropium (Duoneb) 3 ml Q4HRS NEB Last administered on 07/28/19at 00:08; Start 07/25/19 at 20:00; Stop 07/28/19 at 00:50; Status DC Guaifenesin (Robitussin) 200 mg PRN Q4HRS PRN PO COUGH; Start 07/25/19 at 16:45 Lorazepam (Ativan) 0.5 mg PRN Q4HRS PRN PO ANXIETY / AGITATION Last administered on 07/29/19at 01:54; Start 07/25/19 at 16:45 Enoxaparin Sodium (Lovenox 40mg Syringe) 40 mg DAILY SQ Last administered on 07/26/19at 08:46; Start 07/26/19 at 09:00 Donepezil HCl (Aricept) 10 mg DAILY PO Last administered on 07/29/19at 09:03; Start 07/26/19 at 09:00 Memantine (Namenda) 5 mg DAILY PO Last administered on 07/29/19at 09:03; Start 07/26/19 at 09:00; Stop 08/01/19 at 09:01 Memantine (Namenda) 5 mg BID PO ; Start 08/02/19 at 09:00 Gabapentin (Neurontin) 200 mg 1X PO ; Start 07/25/19 at 19:15; Stop 07/25/19 at 20:05; Status DC Gabapentin (Neurontin) 200 mg BID PO Last administered on 07/29/19at 09:03; Start 07/26/19 at 09:00 Gabapentin (Neurontin) 200 mg 1X ONCE PO Last administered on 07/25/19at 20:10; Start 07/25/19 at 20:15; Stop 07/25/19 at 20:16; Status DC Morphine Sulfate (Morphine Sulfate) 2 mg PRN Q4HRS PRN IV PAIN Last administered on 07/28/19at 00:43; Start 07/26/19 at 00:30 Lactobacillus Rhamnosus (Culturelle) 1 cap BID PO Last administered on 07/29/19at 09:02; Start 07/26/19 at 21:00 Cyanocobalamin (Vitamin B-12) 1,000 mcg 1X ONCE IM Last administered on 07/26/19at 14:03; Start 07/26/19 at 13:30; Stop 07/26/19 at 13:31; Status DC Cyanocobalamin (Vitamin B-12) 1,000 mcg QMONTH IM Last administered on 07/27/19at 09:19; Start 07/27/19 at 09:00 Levofloxacin/ Dextrose 100 ml @ 100 mls/hr Q24H IV Last administered on 07/28/19at 16:04; Start 07/27/19 at 12:00; Stop 07/28/19 at 16:53; Status DC Pantoprazole Sodium (Protonix) 40 mg DAILYAC PO Last administered on 07/29/19at 09:02; Start 07/27/19 at 17:00 Iohexol (Omnipaque 240 Mg/ml) 30 ml 1X ONCE PO Last administered on 07/27/19at 22:55; Start 07/27/19 at 23:00; Stop 07/27/19 at 23:01; Status DC Iohexol (Omnipaque 300 Mg/ml) 75 ml 1X ONCE IV Last administered on 07/27/19at 22:55; Start 07/27/19 at 23:00; Stop 07/27/19 at 23:01; Status DC Info (CONTRAST GIVEN -- Rx MONITORING) 1 each PRN DAILY PRN MC SEE COMMENTS; Start 07/27/19 at 23:00; Stop 07/29/19 at 22:59 Albuterol/ Ipratropium (Duoneb) 3 ml RTQID NEB Last administered on 07/29/19at 16:29; Start 07/28/19 at 08:00 Ringer's Solution 1,000 ml @ 75 mls/hr 1X ONCE IV ; Start 07/28/19 at 10:45; Stop 07/29/19 at 00:04; Status DC Propofol 20 ml @ As Directed STK-MED ONCE IV ; Start 07/28/19 at 11:40; Stop 07/28/19 at 11:40; Status DC Lidocaine HCl (Lidocaine Pf 2% Vial) 5 ml STK-MED ONCE .ROUTE ; Start 07/28/19 at 11:40; Stop 07/28/19 at 11:40; Status DC Polyethylene Glycol (miraLAX PACKET) 17 gm DAILY PO Last administered on 07/28/19at 16:04; Start 07/28/19 at 14:00 Ziprasidone (Geodon Im) 20 mg 1X PRN IM agitation; Start 07/28/19 at 17:00 Levofloxacin (Levaquin) 750 mg DAILY06 PO Last administered on 07/29/19at 07:29; Start 07/29/19 at 06:00 Active Scripts Active [place] 5-325 Tablet (Acetaminophen/Hydrocodone Bitart) 1 Each Tablet 1-2 Each PO PRN Q6HRS PRN as needed for pain Reported D3-50 (Cholecalciferol (Vitamin D3)) 50,000 Unit Capsule 50,000 Unit PO DAILY Finasteride 5 Mg Tablet 5 Mg PO DAILY Flomax (Tamsulosin Hcl) 0.4 Mg Cap.er.24h 0.4 Mg PO DAILY Venlafaxine Hcl 75 Mg Tablet 75 Mg PO BID Donepezil Hcl 10 Mg Tablet 1 Tab PO DAILY Morphine Sulfate Er (Morphine Sulfate) 15 Mg Tablet.er 15 Mg PO BID Amitriptyline Hcl 25 Mg Tablet 1 Tab PO QHS Gabapentin (Gabapentin) 300 Mg Capsule 300 Mg PO TID Potassium Chloride (Potassium Chloride) 20 Meq Tablet.er 20 Meq PO DAILY Vitals/I & O Vital Sign - Last 24 Hours 07/28/19 07/28/19 07/29/19 07/29/19 21:55 23:07 03:46 07:00 Temp 97.8 98.0 98.1 97.8 98.0 98.1 Pulse 83 78 68 Resp 16 16 18 B/P (MAP) 104/61 (75) 129/71 (90) 108/67 (81) Pulse Ox 96 96 97 97 O2 Delivery Room Air Room Air Room Air Room Air 07/29/19 07/29/19 07/29/19 07/29/19 08:00 09:51 11:00 11:44 Temp 98.5 98.5 Pulse 81 Resp 18 B/P (MAP) 97/54 (68) Pulse Ox 95 97 94 O2 Delivery Room Air Room Air Room Air Room Air 07/29/19 07/29/19 15:00 16:29 Temp 98.9 98.9 Pulse 79 Resp 18 B/P (MAP) 110/64 (79) Pulse Ox 98 96 O2 Delivery Room Air Room Air Intake and Output 07/28/19 07/28/19 07/29/19 15:00 23:00 07:00 Intake Total 200 ml 340 ml Output Total 700 ml Balance -700 ml 200 ml 340 ml HAROON MCQUEEN MD Jul 29, 2019 20:09
[2019-07-29 23:00] VITALS: BP 104/59
[2019-07-30 03:00] VITALS: BP 112/75
[2019-07-30 05:26] LABS: BASO # 0.1 x10^3/uL (0.0-0.2); BASO % 1 % (0-3); EOS # 0.1 x10^3/uL (0.0-0.7); EOS % 2 % (0-3); HEMATOCRIT 22.7 % (39.0-53.0); HEMOGLOBIN 7.7 g/dL (13.0-17.5); LYMPH # 2.2 x10^3/uL (1.0-4.8); LYMPH % 36 % (24-48); MEAN CORPUSCULAR HEMOGLOBIN 32 pg (25-35); MEAN CORPUSCULAR HGB CONC 34 g/dL (31-37); MEAN CORPUSCULAR VOLUME 95 fL (79-100); MONO # 0.6 x10^3/uL (0.0-1.1); MONO % 9 % (0-9); NEUT # 3.3 x10^3/uL (1.8-7.7); NEUT % 53 % (31-73); PLATELET COUNT 242 x10^3/uL (140-400); RED BLOOD COUNT 2.39 x10^6/uL (4.30-5.70); RED CELL DISTRIBUTION WIDTH 15.7 % (11.5-14.5); WHITE BLOOD COUNT 6.3 x10^3/uL (4.0-11.0)
[2019-07-30 05:32] LABS: CALCIUM 8.3 mg/dL (8.5-10.1); GFR 73.2; POTASSIUM 3.1 mmol/L (3.5-5.1)
[2019-07-30 07:00] VITALS: BP 164/62
--- NOTE | 2019-07-30 08:19 | PDOC ---
PROGRESS NOTES Chief Complaint Chief Complaint 1. dementia with delirium, improved, 2. Leukocytosis , SIRS 3. cognitive decline x months, patient with worsening dementia. Patient will likely need placement. Mild foci of decreased aeration within the hemispheric white matter, most often due to chronic microvascular ischemia. ct head 07/25 4. severe protein-caloric malnutrition 5. HX copd, remote heavy tobacco abuse 6. abnormal weight loss, recent 7. anemia, with weaskness 8. hematuria has resolved History of Present Illness History of Present Illness Right ankle XR - Acute nondisplaced fracture medial malleolus with diffuse overlying soft tissue swelling. Postoperative changes are noted about the distal tibia and fibula. Diffuse soft tissue swelling about the right ankle without underlying bony abnormality. K3.1. Hb 7.7. He is amenable to wearing a brace. He would like someone to contact the [facility]. He has no COB or CP currently. 07/29/19 Patient pleasant - keeps telling us that he will be in a dance show tomrrow otherwise, he is unable to have a meaningful conversation Power of tax attorney paperwork has been brought by his daughter. Vitals Vitals Vital Signs Date Time Temp Pulse Resp B/P (MAP) Pulse Ox O2 Delivery O2 Flow Rate FiO2 07/30/19 03:00 98.1 82 18 112/75 (87) 96 Room Air 98.1 Physical Exam Physical Exam GENERAL: Alert and oriented gentleman, not in distress. VITAL SIGNS: Stable, afebrile. HEENT: NAD. NECK: Supple. No JVP, no lymphadenopathy. LUNGS: Clear. HEART: S1, S2 regular. ABDOMEN: Benign. EXTREMITIES: No edema or cyanosis. SKIN: Unremarkable. NEUROLOGIC: The patient is neurologically alert, awake, able to communicate simple things, but memory is poor. MSK: sharp pain localized of right ribs General: Cooperative, No acute distress Heart: Regular rate, Normal S1, Normal S2 Lungs: Clear Abdomen: Soft, No tenderness, Other (thin) Extremities: No clubbing Labs LABS Laboratory Tests Test 07/30/19 04:45 White Blood Count 6.3 x10^3/uL (4.0-11.0) Red Blood Count 2.39 x10^6/uL (4.30-5.70) Hemoglobin 7.7 g/dL (13.0-17.5) Hematocrit 22.7 % (39.0-53.0) Mean Corpuscular Volume 95 fL (79-100) Mean Corpuscular Hemoglobin 32 pg (25-35) Mean Corpuscular Hemoglobin Concent 34 g/dL (31-37) Red Cell Distribution Width 15.7 % (11.5-14.5) Platelet Count 242 x10^3/uL (140-400) Neutrophils (%) (Auto) 53 % (31-73) Lymphocytes (%) (Auto) 36 % (24-48) Monocytes (%) (Auto) 9 % (0-9) Eosinophils (%) (Auto) 2 % (0-3) Basophils (%) (Auto) 1 % (0-3) Neutrophils # (Auto) 3.3 x10^3/uL (1.8-7.7) Lymphocytes # (Auto) 2.2 x10^3/uL (1.0-4.8) Monocytes # (Auto) 0.6 x10^3/uL (0.0-1.1) Eosinophils # (Auto) 0.1 x10^3/uL (0.0-0.7) Basophils # (Auto) 0.1 x10^3/uL (0.0-0.2) Sodium Level 145 mmol/L (136-145) Potassium Level 3.1 mmol/L (3.5-5.1) Chloride Level 109 mmol/L (98-107) Carbon Dioxide Level 26 mmol/L (21-32) Anion Gap 10 (6-14) Blood Urea Nitrogen 14 mg/dL (8-26) Creatinine 1.0 mg/dL (0.7-1.3) Estimated GFR (Cockcroft-Gault) 73.2 Glucose Level 98 mg/dL (70-99) Calcium Level 8.3 mg/dL (8.5-10.1) Assessment and Plan Assessmemt and Plan Problems Medical Problems: (1) Altered level of consciousness Status: Acute (2) Anemia Status: Acute (3) Dehydration Status: Acute (4) Elevated lactic acid level Status: Acute (5) Hypoalbuminemia Status: Acute (6) Hypotension Status: Acute (7) Urinary tract infection Status: Acute Comment Review of Relevant I have reviewed the following items torie (where applicable) has been applied. Labs Laboratory Tests Test 07/29/19 04:07/30/19 04:45 White Blood Count 7.1 x10^3/uL (4.0-11.0) 6.3 x10^3/uL (4.0-11.0) Red Blood Count 2.46 x10^6/uL (4.30-5.70) 2.39 x10^6/uL (4.30-5.70) Hemoglobin 8.0 g/dL (13.0-17.5) 7.7 g/dL (13.0-17.5) Hematocrit 23.2 % (39.0-53.0) 22.7 % (39.0-53.0) Mean Corpuscular Volume 95 fL (79-100) 95 fL (79-100) Mean Corpuscular Hemoglobin 33 pg (25-35) 32 pg (25-35) Mean Corpuscular Hemoglobin Concent 34 g/dL (31-37) 34 g/dL (31-37) Red Cell Distribution Width 15.7 % (11.5-14.5) 15.7 % (11.5-14.5) Platelet Count 202 x10^3/uL (140-400) 242 x10^3/uL (140-400) Neutrophils (%) (Auto) 57 % (31-73) 53 % (31-73) Lymphocytes (%) (Auto) 30 % (24-48) 36 % (24-48) Monocytes (%) (Auto) 9 % (0-9) 9 % (0-9) Eosinophils (%) (Auto) 3 % (0-3) 2 % (0-3) Basophils (%) (Auto) 1 % (0-3) 1 % (0-3) Neutrophils # (Auto) 4.1 x10^3/uL (1.8-7.7) 3.3 x10^3/uL (1.8-7.7) Lymphocytes # (Auto) 2.1 x10^3/uL (1.0-4.8) 2.2 x10^3/uL (1.0-4.8) Monocytes # (Auto) 0.6 x10^3/uL (0.0-1.1) 0.6 x10^3/uL (0.0-1.1) Eosinophils # (Auto) 0.2 x10^3/uL (0.0-0.7) 0.1 x10^3/uL (0.0-0.7) Basophils # (Auto) 0.1 x10^3/uL (0.0-0.2) 0.1 x10^3/uL (0.0-0.2) Sodium Level 144 mmol/L (136-145) 145 mmol/L (136-145) Potassium Level 3.4 mmol/L (3.5-5.1) 3.1 mmol/L (3.5-5.1) Chloride Level 109 mmol/L (98-107) 109 mmol/L (98-107) Carbon Dioxide Level 27 mmol/L (21-32) 26 mmol/L (21-32) Anion Gap 8 (6-14) 10 (6-14) Blood Urea Nitrogen 20 mg/dL (8-26) 14 mg/dL (8-26) Creatinine 1.0 mg/dL (0.7-1.3) 1.0 mg/dL (0.7-1.3) Estimated GFR (Cockcroft-Gault) 73.2 73.2 Glucose Level 116 mg/dL (70-99) 98 mg/dL (70-99) Calcium Level 8.5 mg/dL (8.5-10.1) 8.3 mg/dL (8.5-10.1) Laboratory Tests Test 07/30/19 04:45 White Blood Count 6.3 x10^3/uL (4.0-11.0) Red Blood Count 2.39 x10^6/uL (4.30-5.70) Hemoglobin 7.7 g/dL (13.0-17.5) Hematocrit 22.7 % (39.0-53.0) Mean Corpuscular Volume 95 fL (79-100) Mean Corpuscular Hemoglobin 32 pg (25-35) Mean Corpuscular Hemoglobin Concent 34 g/dL (31-37) Red Cell Distribution Width 15.7 % (11.5-14.5) Platelet Count 242 x10^3/uL (140-400) Neutrophils (%) (Auto) 53 % (31-73) Lymphocytes (%) (Auto) 36 % (24-48) Monocytes (%) (Auto) 9 % (0-9) Eosinophils (%) (Auto) 2 % (0-3) Basophils (%) (Auto) 1 % (0-3) Neutrophils # (Auto) 3.3 x10^3/uL (1.8-7.7) Lymphocytes # (Auto) 2.2 x10^3/uL (1.0-4.8) Monocytes # (Auto) 0.6 x10^3/uL (0.0-1.1) Eosinophils # (Auto) 0.1 x10^3/uL (0.0-0.7) Basophils # (Auto) 0.1 x10^3/uL (0.0-0.2) Sodium Level 145 mmol/L (136-145) Potassium Level 3.1 mmol/L (3.5-5.1) Chloride Level 109 mmol/L (98-107) Carbon Dioxide Level 26 mmol/L (21-32) Anion Gap 10 (6-14) Blood Urea Nitrogen 14 mg/dL (8-26) Creatinine 1.0 mg/dL (0.7-1.3) Estimated GFR (Cockcroft-Gault) 73.2 Glucose Level 98 mg/dL (70-99) Calcium Level 8.3 mg/dL (8.5-10.1) Microbiology 07/25/19 Urine Culture - Final, Complete 07/25/19 Urine Culture Result 1 (TERE) - Final, Complete 07/25/19 Blood Culture - Preliminary, Resulted NO GROWTH AFTER 4 DAYS Medications Current Medications Sodium Chloride 1,000 ml @ 1,000 mls/hr Q1H IV Last administered on 07/25/19at 12:34; Start 07/25/19 at 12:34; Stop 07/25/19 at 13:33; Status DC Ceftriaxone Sodium (Rocephin) 1 gm 1X ONCE IVP Last administered on 07/25/19at 15:29; Start 07/25/19 at 15:00; Stop 07/25/19 at 15:01; Status DC Piperacillin Sod/ Tazobactam Sod 3.375 gm/Sodium Chloride 50 ml @ 100 mls/hr Q6HRS IV Last administered on 07/26/19at 11:47; Start 07/26/19 at 00:00; Stop 07/26/19 at 15:34; Status DC Sodium Chloride 1,000 ml @ 150 mls/hr Q6H40M IV Last administered on 07/26/19at 11:46; Start 07/25/19 at 15:13; Stop 07/26/19 at 15:12; Status DC Fentanyl Citrate (Fentanyl 2ml Vial) 50 mcg 1X ONCE IVP Last administered on 07/25/19at 15:42; Start 07/25/19 at 15:15; Stop 07/25/19 at 15:20; Status DC Piperacillin Sod/ Tazobactam Sod 3.375 gm/Sodium Chloride 50 ml @ 100 mls/hr 1X ONCE IV Last administered on 07/25/19at 15:30; Start 07/25/19 at 16:00; Stop 07/25/19 at 16:29; Status DC Sodium Chloride (Normal Saline Flush) 3 ml QSHIFT PRN IV AFTER MEDS AND BLOOD DRAWS; Start 07/25/19 at 16:45 Sodium Chloride 1,000 ml @ 70 mls/hr [id number] IV Last administered on 07/28/19at 16:01; Start 07/25/19 at 16:32; Stop 07/28/19 at 16:53; Status DC Ondansetron HCl (Zofran) 4 mg PRN Q4HRS PRN IV NAUSEA/VOMITING; Start 07/25/19 at 16:45 Acetaminophen (Tylenol) 650 mg PRN Q4HRS PRN PO TEMP OVER 100.4F OR MILD PAIN Last administered on 07/26/19at 20:49; Start 07/25/19 at 16:45 Sodium Monofluorophosphate (Fleet Adult) 133 ml PRN DAILY PRN [place] CONSTIPATION; Start 07/25/19 at 16:45 Docusate Sodium (Colace) 100 mg PRN BID PRN PO CONSTIPATION; Start 07/25/19 at 16:45 Albuterol/ Ipratropium (Duoneb) 3 ml Q4HRS NEB Last administered on 07/28/19at 00:08; Start 07/25/19 at 20:00; Stop 07/28/19 at 00:50; Status DC Guaifenesin (Robitussin) 200 mg PRN Q4HRS PRN PO COUGH; Start 07/25/19 at 16:45 Lorazepam (Ativan) 0.5 mg PRN Q4HRS PRN PO ANXIETY / AGITATION Last administered on 07/29/19at 20:58; Start 07/25/19 at 16:45 Enoxaparin Sodium (Lovenox 40mg Syringe) 40 mg DAILY SQ Last administered on 07/26/19at 08:46; Start 07/26/19 at 09:00 Donepezil HCl (Aricept) 10 mg DAILY PO Last administered on 07/29/19at 09:03; Start 07/26/19 at 09:00 Memantine (Namenda) 5 mg DAILY PO Last administered on 07/29/19at 09:03; Start 07/26/19 at 09:00; Stop 08/01/19 at 09:01 Memantine (Namenda) 5 mg BID PO ; Start 08/02/19 at 09:00 Gabapentin (Neurontin) 200 mg 1X PO ; Start 07/25/19 at 19:15; Stop 07/25/19 at 20:05; Status DC Gabapentin (Neurontin) 200 mg BID PO Last administered on 07/29/19at 20:59; Start 07/26/19 at 09:00 Gabapentin (Neurontin) 200 mg 1X ONCE PO Last administered on 07/25/19at 20:10; Start 07/25/19 at 20:15; Stop 07/25/19 at 20:16; Status DC Morphine Sulfate (Morphine Sulfate) 2 mg PRN Q4HRS PRN IV PAIN Last administered on 07/28/19at 00:43; Start 07/26/19 at 00:30 Lactobacillus Rhamnosus (Culturelle) 1 cap BID PO Last administered on 07/29/19at 20:58; Start 07/26/19 at 21:00 Cyanocobalamin (Vitamin B-12) 1,000 mcg 1X ONCE IM Last administered on 07/26/19at 14:03; Start 07/26/19 at 13:30; Stop 07/26/19 at 13:31; Status DC Cyanocobalamin (Vitamin B-12) 1,000 mcg QMONTH IM Last administered on 07/27/19at 09:19; Start 07/27/19 at 09:00 Levofloxacin/ Dextrose 100 ml @ 100 mls/hr Q24H IV Last administered on 07/28/19at 16:04; Start 07/27/19 at 12:00; Stop 07/28/19 at 16:53; Status DC Pantoprazole Sodium (Protonix) 40 mg DAILYAC PO Last administered on 07/29/19at 09:02; Start 07/27/19 at 17:00 Iohexol (Omnipaque 240 Mg/ml) 30 ml 1X ONCE PO Last administered on 07/27/19at 22:55; Start 07/27/19 at 23:00; Stop 07/27/19 at 23:01; Status DC Iohexol (Omnipaque 300 Mg/ml) 75 ml 1X ONCE IV Last administered on 07/27/19at 22:55; Start 07/27/19 at 23:00; Stop 07/27/19 at 23:01; Status DC Info (CONTRAST GIVEN -- Rx MONITORING) 1 each PRN DAILY PRN MC SEE COMMENTS; Start 07/27/19 at 23:00; Stop 07/29/19 at 22:59; Status DC Albuterol/ Ipratropium (Duoneb) 3 ml RTQID NEB Last administered on 07/29/19at 21:14; Start 07/28/19 at 08:00 Ringer's Solution 1,000 ml @ 75 mls/hr 1X ONCE IV ; Start 07/28/19 at 10:45; Stop 07/29/19 at 00:04; Status DC Propofol 20 ml @ As Directed STK-MED ONCE IV ; Start 07/28/19 at 11:40; Stop 07/28/19 at 11:40; Status DC Lidocaine HCl (Lidocaine Pf 2% Vial) 5 ml STK-MED ONCE .ROUTE ; Start 07/28/19 at 11:40; Stop 07/28/19 at 11:40; Status DC Polyethylene Glycol (miraLAX PACKET) 17 gm DAILY PO Last administered on 07/28/19at 16:04; Start 07/28/19 at 14:00 Ziprasidone (Geodon Im) 20 mg 1X PRN IM agitation; Start 07/28/19 at 17:00 Levofloxacin (Levaquin) 750 mg DAILY06 PO Last administered on 07/30/19at 06:15; Start 07/29/19 at 06:00 Active Scripts Active [place] 5-325 Tablet (Acetaminophen/Hydrocodone Bitart) 1 Each Tablet 1-2 Each PO PRN Q6HRS PRN as needed for pain Reported D3-50 (Cholecalciferol (Vitamin D3)) 50,000 Unit Capsule 50,000 Unit PO DAILY Finasteride 5 Mg Tablet 5 Mg PO DAILY Flomax (Tamsulosin Hcl) 0.4 Mg Cap.er.24h 0.4 Mg PO DAILY Venlafaxine Hcl 75 Mg Tablet 75 Mg PO BID Donepezil Hcl 10 Mg Tablet 1 Tab PO DAILY Morphine Sulfate Er (Morphine Sulfate) 15 Mg Tablet.er 15 Mg PO BID Amitriptyline Hcl 25 Mg Tablet 1 Tab PO QHS Gabapentin (Gabapentin) 300 Mg Capsule 300 Mg PO TID Potassium Chloride (Potassium Chloride) 20 Meq Tablet.er 20 Meq PO DAILY Vitals/I & O Vital Sign - Last 24 Hours 07/29/19 07/29/19 07/29/19 07/29/19 09:51 11:00 11:44 15:00 Temp 98.5 98.9 98.5 98.9 Pulse 81 79 Resp 18 18 B/P (MAP) 97/54 (68) 110/64 (79) Pulse Ox 95 97 94 98 O2 Delivery Room Air Room Air Room Air Room Air 07/29/19 07/29/19 07/29/19 07/29/19 16:29 19:00 20:00 21:15 Temp 98.3 98.3 Pulse 78 Resp 20 B/P (MAP) 115/79 (91) Pulse Ox 96 98 O2 Delivery Room Air Room Air Room Air Room Air 07/29/19 07/30/19 23:00 03:00 Temp 98.1 98.1 98.1 98.1 Pulse 85 82 Resp 18 18 B/P (MAP) 104/59 (74) 112/75 (87) Pulse Ox 95 96 O2 Delivery Room Air Room Air Intake and Output 07/29/19 07/29/19 07/30/19 15:00 23:00 07:00 Output Total 0 ml Balance 0 ml AURORA SALAZAR MD Jul 30, 2019 08:19
[2019-07-30] MEDS ORDERED: POTASSIUM CHLORIDE 20 MEQ TABLET.ER. PO ONE ×2 (08:30→12:00)
[2019-07-30] MEDS: IPRATRPIUM/ALBUTEROL 0.5/2.5MG 3 ML NEBU. NEB SCH ×4 (08:33→20:27)
[2019-07-30] MEDS: POLYETHYLENE GLYCOL 3350 17 GM PACKET. PO SCH (09:00)
[2019-07-30] MEDS: ACETAMINOPHEN 325 MG TABLET. PO PRN ×2 (09:39→17:12)
[2019-07-30] MEDS: DONEPEZIL HCL 10 MG TABLET. PO SCH (09:39)
[2019-07-30] MEDS: GABAPENTIN 100 MG CAPSULE. PO SCH ×2 (09:39→21:14)
[2019-07-30] MEDS: LACTOBACILLUS RHAMNOSUS GG 1 CAPSULE. PO SCH ×2 (09:39→21:14)
[2019-07-30] MEDS: ENOXAPARIN 40 MG/0.4 ML SYRINGE. SQ SCH (09:39)
[2019-07-30] MEDS: PANTOPRAZOLE 40 MG TABLET.DR. PO SCH (09:39)
[2019-07-30] MEDS: MEMANTINE 5 MG TABLET. PO SCH (09:39)
[2019-07-30 11:00] VITALS: BP 117/71
--- NOTE | 2019-07-30 11:39 | PDOC ---
G I PROGRESS NOTE Reason for Follow-up Acute blood loss anemia Subjective No complaints Physical Exam Lungs clear CV S1 S2 ABd +BS, soft, nontender Review of Relevant I have reviewed the following items torie (where applicable) has been applied. Labs Laboratory Tests Test 07/29/19 04:20 07/30/19 04:45 White Blood Count 7.1 x10^3/uL (4.0-11.0) 6.3 x10^3/uL (4.0-11.0) Red Blood Count 2.46 x10^6/uL (4.30-5.70) 2.39 x10^6/uL (4.30-5.70) Hemoglobin 8.0 g/dL (13.0-17.5) 7.7 g/dL (13.0-17.5) Hematocrit 23.2 % (39.0-53.0) 22.7 % (39.0-53.0) Mean Corpuscular Volume 95 fL (79-100) 95 fL (79-100) Mean Corpuscular Hemoglobin 33 pg (25-35) 32 pg (25-35) Mean Corpuscular Hemoglobin Concent 34 g/dL (31-37) 34 g/dL (31-37) Red Cell Distribution Width 15.7 % (11.5-14.5) 15.7 % (11.5-14.5) Platelet Count 202 x10^3/uL (140-400) 242 x10^3/uL (140-400) Neutrophils (%) (Auto) 57 % (31-73) 53 % (31-73) Lymphocytes (%) (Auto) 30 % (24-48) 36 % (24-48) Monocytes (%) (Auto) 9 % (0-9) 9 % (0-9) Eosinophils (%) (Auto) 3 % (0-3) 2 % (0-3) Basophils (%) (Auto) 1 % (0-3) 1 % (0-3) Neutrophils # (Auto) 4.1 x10^3/uL (1.8-7.7) 3.3 x10^3/uL (1.8-7.7) Lymphocytes # (Auto) 2.1 x10^3/uL (1.0-4.8) 2.2 x10^3/uL (1.0-4.8) Monocytes # (Auto) 0.6 x10^3/uL (0.0-1.1) 0.6 x10^3/uL (0.0-1.1) Eosinophils # (Auto) 0.2 x10^3/uL (0.0-0.7) 0.1 x10^3/uL (0.0-0.7) Basophils # (Auto) 0.1 x10^3/uL (0.0-0.2) 0.1 x10^3/uL (0.0-0.2) Sodium Level 144 mmol/L (136-145) 145 mmol/L (136-145) Potassium Level 3.4 mmol/L (3.5-5.1) 3.1 mmol/L (3.5-5.1) Chloride Level 109 mmol/L (98-107) 109 mmol/L (98-107) Carbon Dioxide Level 27 mmol/L (21-32) 26 mmol/L (21-32) Anion Gap 8 (6-14) 10 (6-14) Blood Urea Nitrogen 20 mg/dL (8-26) 14 mg/dL (8-26) Creatinine 1.0 mg/dL (0.7-1.3) 1.0 mg/dL (0.7-1.3) Estimated GFR (Cockcroft-Gault) 73.2 73.2 Glucose Level 116 mg/dL (70-99) 98 mg/dL (70-99) Calcium Level 8.5 mg/dL (8.5-10.1) 8.3 mg/dL (8.5-10.1) Magnesium Level 2.1 mg/dL (1.8-2.4) Laboratory Tests Test 07/30/19 04:45 White Blood Count 6.3 x10^3/uL (4.0-11.0) Red Blood Count 2.39 x10^6/uL (4.30-5.70) Hemoglobin 7.7 g/dL (13.0-17.5) Hematocrit 22.7 % (39.0-53.0) Mean Corpuscular Volume 95 fL (79-100) Mean Corpuscular Hemoglobin 32 pg (25-35) Mean Corpuscular Hemoglobin Concent 34 g/dL (31-37) Red Cell Distribution Width 15.7 % (11.5-14.5) Platelet Count 242 x10^3/uL (140-400) Neutrophils (%) (Auto) 53 % (31-73) Lymphocytes (%) (Auto) 36 % (24-48) Monocytes (%) (Auto) 9 % (0-9) Eosinophils (%) (Auto) 2 % (0-3) Basophils (%) (Auto) 1 % (0-3) Neutrophils # (Auto) 3.3 x10^3/uL (1.8-7.7) Lymphocytes # (Auto) 2.2 x10^3/uL (1.0-4.8) Monocytes # (Auto) 0.6 x10^3/uL (0.0-1.1) Eosinophils # (Auto) 0.1 x10^3/uL (0.0-0.7) Basophils # (Auto) 0.1 x10^3/uL (0.0-0.2) Sodium Level 145 mmol/L (136-145) Potassium Level 3.1 mmol/L (3.5-5.1) Chloride Level 109 mmol/L (98-107) Carbon Dioxide Level 26 mmol/L (21-32) Anion Gap 10 (6-14) Blood Urea Nitrogen 14 mg/dL (8-26) Creatinine 1.0 mg/dL (0.7-1.3) Estimated GFR (Cockcroft-Gault) 73.2 Glucose Level 98 mg/dL (70-99) Calcium Level 8.3 mg/dL (8.5-10.1) Magnesium Level 2.1 mg/dL (1.8-2.4) Microbiology 07/25/19 Urine Culture - Final, Complete 07/25/19 Urine Culture Result 1 (TERE) - Final, Complete 07/25/19 Blood Culture - Preliminary, Resulted NO GROWTH AFTER 4 DAYS Medications Current Medications Sodium Chloride 1,000 ml @ 1,000 mls/hr Q1H IV Last administered on 07/25/19at 12:34; Start 07/25/19 at 12:34; Stop 07/25/19 at 13:33; Status DC Ceftriaxone Sodium (Rocephin) 1 gm 1X ONCE IVP Last administered on 07/25/19at 15:29; Start 07/25/19 at 15:00; Stop 07/25/19 at 15:01; Status DC Piperacillin Sod/ Tazobactam Sod 3.375 gm/Sodium Chloride 50 ml @ 100 mls/hr Q6HRS IV Last administered on 07/26/19at 11:47; Start 07/26/19 at 00:00; Stop 07/26/19 at 15:34; Status DC Sodium Chloride 1,000 ml @ 150 mls/hr Q6H40M IV Last administered on 07/26/19at 11:46; Start 07/25/19 at 15:13; Stop 07/26/19 at 15:12; Status DC Fentanyl Citrate (Fentanyl 2ml Vial) 50 mcg 1X ONCE IVP Last administered on 07/25/19at 15:42; Start 07/25/19 at 15:15; Stop 07/25/19 at 15:20; Status DC Piperacillin Sod/ Tazobactam Sod 3.375 gm/Sodium Chloride 50 ml @ 100 mls/hr 1X ONCE IV Last administered on 07/25/19at 15:30; Start 07/25/19 at 16:00; Stop 07/25/19 at 16:29; Status DC Sodium Chloride (Normal Saline Flush) 3 ml QSHIFT PRN IV AFTER MEDS AND BLOOD DRAWS; Start 07/25/19 at 16:45 Sodium Chloride 1,000 ml @ 70 mls/hr [id number] IV Last administered on 07/28/19at 16:01; Start 07/25/19 at 16:32; Stop 07/28/19 at 16:53; Status DC Ondansetron HCl (Zofran) 4 mg PRN Q4HRS PRN IV NAUSEA/VOMITING; Start 07/25/19 at 16:45 Acetaminophen (Tylenol) 650 mg PRN Q4HRS PRN PO TEMP OVER 100.4F OR MILD PAIN Last administered on 07/30/19at 09:39; Start 07/25/19 at 16:45 Sodium Monofluorophosphate (Fleet Adult) 133 ml PRN DAILY PRN [place] CONSTIPATION; Start 07/25/19 at 16:45 Docusate Sodium (Colace) 100 mg PRN BID PRN PO CONSTIPATION; Start 07/25/19 at 16:45 Albuterol/ Ipratropium (Duoneb) 3 ml Q4HRS NEB Last administered on 07/28/19at 00:08; Start 07/25/19 at 20:00; Stop 07/28/19 at 00:50; Status DC Guaifenesin (Robitussin) 200 mg PRN Q4HRS PRN PO COUGH; Start 07/25/19 at 16:45 Lorazepam (Ativan) 0.5 mg PRN Q4HRS PRN PO ANXIETY / AGITATION Last administered on 07/29/19at 20:58; Start 07/25/19 at 16:45 Enoxaparin Sodium (Lovenox 40mg Syringe) 40 mg DAILY SQ Last administered on 07/30/19at 09:39; Start 07/26/19 at 09:00; Stop 07/30/19 at 11:07; Status DC Donepezil HCl (Aricept) 10 mg DAILY PO Last administered on 07/30/19at 09:39; Start 07/26/19 at 09:00 Memantine (Namenda) 5 mg DAILY PO Last administered on 07/30/19at 09:39; Start 07/26/19 at 09:00; Stop 08/01/19 at 09:01 Memantine (Namenda) 5 mg BID PO ; Start 08/02/19 at 09:00 Gabapentin (Neurontin) 200 mg 1X PO ; Start 07/25/19 at 19:15; Stop 07/25/19 at 20:05; Status DC Gabapentin (Neurontin) 200 mg BID PO Last administered on 07/30/19at 09:39; St art 07/26/19 at 09:00 Gabapentin (Neurontin) 200 mg 1X ONCE PO Last administered on 07/25/19at 20:10; Start 07/25/19 at 20:15; Stop 07/25/19 at 20:16; Status DC Morphine Sulfate (Morphine Sulfate) 2 mg PRN Q4HRS PRN IV PAIN Last administered on 07/28/19at 00:43; Start 07/26/19 at 00:30 Lactobacillus Rhamnosus (Culturelle) 1 cap BID PO Last administered on 07/30/19at 09:39; Start 07/26/19 at 21:00 Cyanocobalamin (Vitamin B-12) 1,000 mcg 1X ONCE IM Last administered on 07/26/19at 14:03; Start 07/26/19 at 13:30; Stop 07/26/19 at 13:31; Status DC Cyanocobalamin (Vitamin B-12) 1,000 mcg QMONTH IM Last administered on 07/27/19at 09:19; Start 07/27/19 at 09:00 Levofloxacin/ Dextrose 100 ml @ 100 mls/hr Q24H IV Last administered on 07/28/19at 16:04; Start 07/27/19 at 12:00; Stop 07/28/19 at 16:53; Status DC Pantoprazole Sodium (Protonix) 40 mg DAILYAC PO Last administered on 07/30/19at 09:39; Start 07/27/19 at 17:00 Iohexol (Omnipaque 240 Mg/ml) 30 ml 1X ONCE PO Last administered on 07/27/19at 22:55; Start 07/27/19 at 23:00; Stop 07/27/19 at 23:01; Status DC Iohexol (Omnipaque 300 Mg/ml) 75 ml 1X ONCE IV Last administered on 07/27/19at 22:55; Start 07/27/19 at 23:00; Stop 07/27/19 at 23:01; Status DC Info (CONTRAST GIVEN -- Rx MONITORING) 1 each PRN DAILY PRN MC SEE COMMENTS; Start 07/27/19 at 23:00; Stop 07/29/19 at 22:59; Status DC Albuterol/ Ipratropium (Duoneb) 3 ml RTQID NEB Last administered on 07/30/19at 08:33; Start 07/28/19 at 08:00 Ringer's Solution 1,000 ml @ 75 mls/hr 1X ONCE IV ; Start 07/28/19 at 10:45; Stop 07/29/19 at 00:04; Status DC Propofol 20 ml @ As Directed STK-MED ONCE IV ; Start 07/28/19 at 11:40; Stop 07/28/19 at 11:40; Status DC Lidocaine HCl (Lidocaine Pf 2% Vial) 5 ml STK-MED ONCE .ROUTE ; Start 07/28/19 at 11:40; Stop 07/28/19 at 11:40; Status DC Polyethylene Glycol (miraLAX PACKET) 17 gm DAILY PO Last administered on 07/28/19at 16:04; Start 07/28/19 at 14:00 Ziprasidone (Geodon Im) 20 mg 1X PRN IM agitation; Start 07/28/19 at 17:00 Levofloxacin (Levaquin) 750 mg DAILY06 PO Last administered on 07/30/19at 06:15; Start 07/29/19 at 06:00 Potassium Chloride (Klor-Con) 40 meq 1X ONCE PO Last administered on 07/30/19at 09:38; Start 07/30/19 at 08:30; Stop 07/30/19 at 08:31; Status DC Potassium Chloride (Klor-Con) 40 meq 1X ONCE PO ; Start 07/30/19 at 12:00; Stop 07/30/19 at 12:01 Active Scripts Active [place] 5-325 Tablet (Acetaminophen/Hydrocodone Bitart) 1 Each Tablet 1-2 Each PO PRN Q6HRS PRN as needed for pain Reported D3-50 (Cholecalciferol (Vitamin D3)) 50,000 Unit Capsule 50,000 Unit PO DAILY Finasteride 5 Mg Tablet 5 Mg PO DAILY Flomax (Tamsulosin Hcl) 0.4 Mg Cap.er.24h 0.4 Mg PO DAILY Venlafaxine Hcl 75 Mg Tablet 75 Mg PO BID Donepezil Hcl 10 Mg Tablet 1 Tab PO DAILY Morphine Sulfate Er (Morphine Sulfate) 15 Mg Tablet.er 15 Mg PO BID Amitriptyline Hcl 25 Mg Tablet 1 Tab PO QHS Gabapentin (Gabapentin) 300 Mg Capsule 300 Mg PO TID Potassium Chloride (Potassium Chloride) 20 Meq Tablet.er 20 Meq PO DAILY Vitals/I & O Vital Sign - Last 24 Hours 07/29/19 07/29/19 07/29/19 07/29/19 11:44 15:00 16:29 19:00 Temp 98.9 98.3 98.9 98.3 Pulse 79 78 Resp 18 20 B/P (MAP) 110/64 (79) 115/79 (91) Pulse Ox 94 98 96 98 O2 Delivery Room Air Room Air Room Air Room Air 07/29/19 07/29/19 07/29/19 07/30/19 20:00 21:15 23:00 03:00 Temp 98.1 98.1 98.1 98.1 Pulse 85 82 Resp 18 18 B/P (MAP) 104/59 (74) 112/75 (87) Pulse Ox 95 96 O2 Delivery Room Air Room Air Room Air Room Air 1/12/20 1/12/20 1/12/20 07:00 08:20 08:34 Temp 98.7 98.7 Pulse 76 Resp 18 B/P (MAP) 164/62 (96) Pulse Ox 92 96 O2 Delivery Room Air Room Air Room Air Intake and Output 07/29/19 07/29/19 07/30/19 15:00 23:00 07:00 Output Total 0 ml Balance 0 ml Problem List Problems Medical Problems: (1) Altered level of consciousness Status: Acute (2) Anemia Status: Acute (3) Dehydration Status: Acute (4) Elevated lactic acid level Status: Acute (5) Hypoalbuminemia Status: Acute (6) Hypotension Status: Acute (7) Urinary tract infection Status: Acute Assessment Acute blood lsos anemia- with abnl Ct scan but no mass on flex sig. Medical therapy in view of advanced dementia. PPI therpay for possible PUD, consider fill colonoscopy and EGD if Hg contiues to fall. CPm JAKI HENRIQUEZ MD Jul 30, 2019 11:39
[2019-07-30 14:58] VITALS: BP 104/61
[2019-07-30 19:30] VITALS: BP 107/67
[2019-07-30 23:28] VITALS: BP 104/67
[2019-07-31] MEDS: ACETAMINOPHEN 325 MG TABLET. PO PRN ×3 (03:18→16:03)
[2019-07-31 03:26] VITALS: BP 112/70
[2019-07-31 07:57] VITALS: BP 110/67
[2019-07-31] MEDS: IPRATRPIUM/ALBUTEROL 0.5/2.5MG 3 ML NEBU. NEB SCH ×4 (07:59→21:02)
[2019-07-31 08:33] LABS: BASO # 0.1 x10^3/uL (0.0-0.2); BASO % 1 % (0-3); EOS # 0.1 x10^3/uL (0.0-0.7); EOS % 2 % (0-3); HEMATOCRIT 23.9 % (39.0-53.0); HEMOGLOBIN 7.9 g/dL (13.0-17.5); LYMPH # 2.1 x10^3/uL (1.0-4.8); LYMPH % 34 % (24-48); MEAN CORPUSCULAR HEMOGLOBIN 32 pg (25-35); MEAN CORPUSCULAR HGB CONC 33 g/dL (31-37); MEAN CORPUSCULAR VOLUME 95 fL (79-100); MONO # 0.5 x10^3/uL (0.0-1.1); MONO % 8 % (0-9); NEUT # 3.3 x10^3/uL (1.8-7.7); NEUT % 55 % (31-73); PLATELET COUNT 306 x10^3/uL (140-400); RED BLOOD COUNT 2.51 x10^6/uL (4.30-5.70); RED CELL DISTRIBUTION WIDTH 16.1 % (11.5-14.5)
[2019-07-31 08:40] LABS: CALCIUM 8.6 mg/dL (8.5-10.1); CREATININE 1.1 mg/dL (0.7-1.3); GFR 65.6
[2019-07-31] MEDS: POLYETHYLENE GLYCOL 3350 17 GM PACKET. PO SCH (09:00)
[2019-07-31] MEDS: DONEPEZIL HCL 10 MG TABLET. PO SCH (09:25)
[2019-07-31] MEDS: MEMANTINE 5 MG TABLET. PO SCH (09:25)
[2019-07-31] MEDS: PANTOPRAZOLE 40 MG TABLET.DR. PO SCH (09:25)
[2019-07-31] MEDS: GABAPENTIN 100 MG CAPSULE. PO SCH ×2 (09:25→21:32)
[2019-07-31] MEDS: LACTOBACILLUS RHAMNOSUS GG 1 CAPSULE. PO SCH ×2 (09:25→21:32)
--- NOTE | 2019-07-31 09:46 | PDOC ---
Subjective: Subjective: He'd like to talk to the doctor about going home. Objective: Objective: No GI concerns per nurse. Vital Signs: Vital Signs Date Time Temp Pulse Resp B/P (MAP) Pulse Ox O2 Delivery O2 Flow Rate FiO2 07/31/19 07:59 98 Room Air 07/31/19 07:57 98.1 77 18 110/67 (81) 98.1 Labs: Laboratory Tests Test 07/31/19 07:50 White Blood Count 6.0 x10^3/uL Red Blood Count 2.51 x10^6/uL Hemoglobin 7.9 g/dL Hematocrit 23.9 % Mean Corpuscular Volume 95 fL Mean Corpuscular Hemoglobin 32 pg Mean Corpuscular Hemoglobin Concent 33 g/dL Red Cell Distribution Width 16.1 % Platelet Count 306 x10^3/uL Neutrophils (%) (Auto) 55 % Lymphocytes (%) (Auto) 34 % Monocytes (%) (Auto) 8 % Eosinophils (%) (Auto) 2 % Basophils (%) (Auto) 1 % Neutrophils # (Auto) 3.3 x10^3/uL Lymphocytes # (Auto) 2.1 x10^3/uL Monocytes # (Auto) 0.5 x10^3/uL Eosinophils # (Auto) 0.1 x10^3/uL Basophils # (Auto) 0.1 x10^3/uL Sodium Level 142 mmol/L Potassium Level 4.0 mmol/L Chloride Level 108 mmol/L Carbon Dioxide Level 24 mmol/L Anion Gap 10 Blood Urea Nitrogen 15 mg/dL Creatinine 1.1 mg/dL Estimated GFR (Cockcroft-Gault) 65.6 Glucose Level 106 mg/dL Calcium Level 8.6 mg/dL Imaging: CT A/P 07/27 IMPRESSION: 1. Masslike circumferential wall thickening of the mid to lower rectum concerning for malignancy. Exuberant inflammation from a distal colitis is less likely. 2. Indeterminate lytic lesions of the L1 and L2 lumbar vertebra. Metastatic lesions are not excluded. 3. Fusiform aneurysm of the abdominal aorta with a diameter of 4.8 cm. 4. Moderate volume of stool within the colon may indicate constipation and could indicate a mild obstruction due to the rectal lesion. 5. Appendix is negative. 6. 1 cm indeterminate hyperdense lesion of the left renal upper pole lateral cortex could represent a hemorrhagic cyst or a hypervascular neoplasm. This could be further assessed with outpatient sonography or MR imaging. 7. Atelectasis/infiltrate of the right lower lobe. There are scattered small nodules of the lung bases largest measuring 5 mm. Consider further assessment with outpatient CT chest imaging. Flex Sig 07/28 internal hemorrhoids extent sigmoid colon Ankle X-Ray 07/29 IMPRESSION: Acute nondisplaced fracture medial malleolus with diffuse overlying soft tissue swelling. Postoperative changes are noted about the distal tibia and fibula. Diffuse soft tissue swelling about the right ankle without underlying bony ab normality. PE: GEN: NAD - walking to restroom w/ walker - staff assisting LUNGS: room air NEURO/PSYCH: probably confused A/P: Anemia, h/o hematuria - Hgb stable since transfusion 07/27, on empiric PPI, FS unrevealing Ankle fracture -- Stable GI-martínez. Could consider EGD and colonoscopy as outpt. Hemodynamically unstable?: No Is patient in severe pain?: No Is NPO status required?: No LUIS F PINK Jul 31, 2019 09:46
[2019-07-31] MEDS ORDERED: CYAN10002 IM (10:25)
[2019-07-31] MEDS ORDERED: MEMA5TAB42 PO (10:25)
[2019-07-31] MEDS ORDERED: MORP-15 PO (10:25)
[2019-07-31] MEDS ORDERED: LEVO750T31 PO (10:25)
[2019-07-31] MEDS ORDERED: HYDR-3164 PO (10:25)
[2019-07-31] MEDS ORDERED: PANT40TA77 PO (10:25)
--- NOTE | 2019-07-31 10:26 | SNU/HH DC ---
DISCHARGE ORDERS DISCHARGE INFORMATION: DISCHARGE DATE: Jul 31, 2019 FINAL DIAGNOSIS Problems Medical Problems: (1) Altered level of consciousness Status: Acute (2) Anemia Status: Acute (3) Dehydration Status: Acute (4) Elevated lactic acid level Status: Acute (5) Hypoalbuminemia Status: Acute (6) Hypotension Status: Acute (7) Urinary tract infection Status: Acute CONDITION ON DISCHARGE: Stable CODE STATUS: Code Status: Full FPC: SNF STAY <30 DAYS: Yes HOSPICE: HOSPICE: No HOSPICE EVAL & TREAT: No LTAC: ADMIT TO LTAC: No POST DISCHARGE ORDERS: ACTIVITY ORDERS: Activity as tolerated DIET AFTER DISCHARGE: Regular CHECKS AFTER DISCHARGE: CHECKS AFTER DISCHARGE: Check blood press - daily, Check blood sugar, ac/hs FOLLOW-UP: PHYSICIAN FOLLOW-UP: OP scopes with GI, f fup OP heme onc, malignancy work up TREATMENT/EQUIPMENT ORDERS: Physical Therapy For: Evalulation/Treatment Occupational Therapy For: Evaluation/Treatment DISCHARGE MEDICATIONS: Home Meds Active Scripts Pantoprazole Sodium (PANTOPRAZOLE SODIUM ) 40 Mg Tablet.dr, 40 MG PO DAILYAC for rectal bleed?, #60 TAB.SR Prov:ANABELLE MARIO MD 07/31/19 Cyanocobalamin (Vitamin B-12) (CYANOCOBALAMIN INJECTION) 1,000 Mcg/1 Ml Vial, 1000 MCG IM QMONTH for mvi, #30 EACH Prov:ANABELLE MARIO MD 07/31/19 Memantine HCl (Memantine HCl) 5 Mg Tablet, 5 MG PO BID for dementia, #60 TAB Prov:ANABELLE MARIO MD 07/31/19 Levofloxacin (LEVAQUIN) 750 Mg Tablet, 750 MG PO DAILY06 for rectal mass/ for 7 Days, #7 TAB Prov:ANABELLE MARIO MD 07/31/19 Morphine Sulfate (MORPHINE SULFATE ER) 15 Mg Tablet.er, 15 MG PO BID for -his home med, #60 TAB.SR Prov:ANABELLE MARIO MD 07/31/19 Hydrocodone/Apap 5-325 (NORCO 5-325 TABLET) 1 Each Tablet, 1-2 EACH PO PRN Q6HRS PRN for - his home med, #15 TAB as needed for pain Prov:ANABELLE MARIO MD 1/13/20 Reported Medications Cholecalciferol (Vitamin D3) (D3-50) 50,000 Unit Capsule, 33005 UNIT PO DAILY for vitamin deficiency, CAP 07/26/19 Finasteride (FINASTERIDE) 5 Mg Tablet, 5 MG PO DAILY for urinary retention, TAB 07/26/19 Tamsulosin Hcl (FLOMAX) 0.4 Mg Cap.er.24h, 0.4 MG PO DAILY for urinary retention, TAB 07/26/19 Venlafaxine Hcl (VENLAFAXINE HCL) 75 Mg Tablet, 75 MG PO BID for Anxiety, TAB 07/26/19 Donepezil Hcl (DONEPEZIL HCL) 10 Mg Tablet, 1 TAB PO DAILY for dementia, #90 TAB 1 Refill 07/26/19 Amitriptyline Hcl (AMITRIPTYLINE HCL) 25 Mg Tablet, 1 TAB PO QHS for Neurogenic pain, #30 TAB 5 Refills 07/26/19 Gabapentin (GABAPENTIN ) 300 Mg Capsule, 300 MG PO TID for NEUROGENIC PAIN, CAP 07/26/19 Potassium Chloride (POTASSIUM CHLORIDE ) 20 Meq Tablet.er, 20 MEQ PO DAILY for SUPPLEMENT, TAB.SR 07/26/19 ANABELLE MARIO MD Jul 31, 2019 10:26
[2019-07-31 11:09] VITALS: BP 128/75
--- NOTE | 2019-07-31 11:25 | NUR ---
SS following up with discharge planning. SS contacted [facility], ; fax [phone], to follow up on referral. [facility] verified that they had referral and would contact SS with acceptance decision today. PT/OT currently on hold until cleared by ortho. SS will continue to follow for discharge planning.
--- NOTE | 2019-07-31 13:20 | NUR ---
Call placed to Dr. An office regarding consultation that needs to be done. The PA stated she would get the message to the MD. Will continue to monitor.
--- NOTE | 2019-07-31 14:37 | SNU/HH DC ---
DISCHARGE WITH HOME HEALTH DISCHARGE INFORMATION: Discharge Date: Jul 31, 2019 Final Diagnosis: Problems Medical Problems: (1) Altered level of consciousness Status: Acute (2) Anemia Status: Acute (3) Dehydration Status: Acute (4) Elevated lactic acid level Status: Acute (5) Hypoalbuminemia Status: Acute (6) Hypotension Status: Acute (7) Urinary tract infection Status: Acute Condition on Discharge: Stable CODE STATUS: Code Status: Full HOME HEALTH: Face to Face: I certify this patient is under my care and that I, or a nurse practitioner or physician's information technology assistant working with me, had a face to face encounter that meets the physician face to face encounter requirements with this patient on []. RN For Eval/Treatment: Yes Physical Therapy For: Evalulation/Treatment Occupational Therapy For: Evaluation/Treatment Home Health Aide For: Self-care EDITOR MAP For: Community Resources Pt Meets Homebound Status: Unsteady balance w/ amb, POST DISCHARGE ORDERS: Activity Instructions for Disc: Activity as tolerated DIET AFTER DISCHARGE: Regular CHECKS AFTER DISCHARGE: Checks after discharge: Check blood press - daily, Check blood sugar, ac/hs FOLLOW-UP: Follow up with: OP scopes with GI, f fup OP heme onc, malignancy work up CERTIFICATION STATEMENT: Certification Statement: Certification Statement: Based on the above finding, I certify that this patient is confined to the home and needs intermittent half-way care, physical therapy and/or speech therapy, or continues to need occupational therapy.~ This patient is under my care, and I have initiated the establishment of the plan of care.~ This patient will be followed by myself or a community physician who will periodically review the plan of care. Home Meds Active Scripts Pantoprazole Sodium (PANTOPRAZOLE SODIUM ) 40 Mg Tablet.dr, 40 MG PO DAILYAC for rectal bleed?, #60 TAB.SR Prov:ANABELLE MARIO MD 07/31/19 Cyanocobalamin (Vitamin B-12) (CYANOCOBALAMIN INJECTION) 1,000 Mcg/1 Ml Vial, 1000 MCG IM QMONTH for mvi, #30 EACH Prov:ANABELLE MARIO MD 07/31/19 Memantine HCl (Memantine HCl) 5 Mg Tablet, 5 MG PO BID for dementia, #60 TAB Prov:ANABELLE MARIO MD 07/31/19 Levofloxacin (LEVAQUIN) 750 Mg Tablet, 750 MG PO DAILY06 for rectal mass/ for 7 Days, #7 TAB Prov:ANABELLE MARIO MD 07/31/19 Morphine Sulfate (MORPHINE SULFATE ER) 15 Mg Tablet.er, 15 MG PO BID for -his home med, #60 TAB.SR Prov:ANABELLE MARIO MD 07/31/19 Hydrocodone/Apap 5-325 (NORCO 5-325 TABLET) 1 Each Tablet, 1-2 EACH PO PRN Q6HRS PRN for - his home med, #15 TAB as needed for pain Prov:ANABELLE MARIO MD 07/31/19 Reported Medications Cholecalciferol (Vitamin D3) (D3-50) 50,000 Unit Capsule, 22849 UNIT PO DAILY for vitamin deficiency, CAP 07/26/19 Finasteride (FINASTERIDE) 5 Mg Tablet, 5 MG PO DAILY for urinary retention, TAB 07/26/19 Tamsulosin Hcl (FLOMAX) 0.4 Mg Cap.er.24h, 0.4 MG PO DAILY for urinary retention, TAB 07/26/19 Venlafaxine Hcl (VENLAFAXINE HCL) 75 Mg Tablet, 75 MG PO BID for Anxiety, TAB 07/26/19 Donepezil Hcl (DONEPEZIL HCL) 10 Mg Tablet, 1 TAB PO DAILY for dementia, #90 TAB 1 Refill 07/26/19 Amitriptyline Hcl (AMITRIPTYLINE HCL) 25 Mg Tablet, 1 TAB PO QHS for Neurogenic pain, #30 TAB 5 Refills 07/26/19 Gabapentin (GABAPENTIN ) 300 Mg Capsule, 300 MG PO TID for NEUROGENIC PAIN, CAP 07/26/19 Potassium Chloride (POTASSIUM CHLORIDE ) 20 Meq Tablet.er, 20 MEQ PO DAILY for SUPPLEMENT, TAB.SR 07/26/19 ANABELLE MARIO MD Jul 31, 2019 14:37
--- NOTE | 2019-07-31 14:42 | PDOC3 ---
Discharge Summary Visit Information Date of Admission: Jul 25, 2019 Date of Discharge: Jul 31, 2019 Admitting Diagnosis Comment: Anemia, h/o hematuria - Hgb stable since transfusion 07/27, on empiric PPI, FS unrevealing Ankle fracture, acute non displaced Recent ankle sx - [facility] eakness, hgh fall risk - only wants HH REctal thickening, r./o malignancy in etiology - OP c scope Lytic lesions, spine r.o malignancy Final Diagnosis Problems Medical Problems: (1) Altered level of consciousness Status: Acute (2) Anemia Status: Acute (3) Dehydration Status: Acute (4) Elevated lactic acid level Status: Acute (5) Hypoalbuminemia Status: Acute (6) Hypotension Status: Acute (7) Urinary tract infection Status: Acute Brief Hospital Course Allergies Allergies Coded Allergies Type Severity Reaction Last Updated Verified No Known Allergies Allergy Unknown 07/09/18 Yes Vital Signs Vital Signs Date Time Temp Pulse Resp B/P (MAP) Pulse Ox O2 Delivery O2 Flow Rate FiO2 07/31/19 11:39 Room Air 07/31/19 11:09 98.3 83 18 128/75 (92) 98 98.3 Lab Results Laboratory Tests Test 07/30/19 04:45 07/31/19 07:50 White Blood Count 6.3 x10^3/uL (4.0-11.0) 6.0 x10^3/uL (4.0-11.0) Red Blood Count 2.39 x10^6/uL (4.30-5.70) 2.51 x10^6/uL (4.30-5.70) Hemoglobin 7.7 g/dL (13.0-17.5) 7.9 g/dL (13.0-17.5) Hematocrit 22.7 % (39.0-53.0) 23.9 % (39.0-53.0) Mean Corpuscular Volume 95 fL (79-100) 95 fL (79-100) Mean Corpuscular Hemoglobin 32 pg (25-35) 32 pg (25-35) Mean Corpuscular Hemoglobin Concent 34 g/dL (31-37) 33 g/dL (31-37) Red Cell Distribution Width 15.7 % (11.5-14.5) 16.1 % (11.5-14.5) Platelet Count 242 x10^3/uL (140-400) 306 x10^3/uL (140-400) Neutrophils (%) (Auto) 53 % (31-73) 55 % (31-73) Lymphocytes (%) (Auto) 36 % (24-48) 34 % (24-48) Monocytes (%) (Auto) 9 % (0-9) 8 % (0-9) Eosinophils (%) (Auto) 2 % (0-3) 2 % (0-3) Basophils (%) (Auto) 1 % (0-3) 1 % (0-3) Neutrophils # (Auto) 3.3 x10^3/uL (1.8-7.7) 3.3 x10^3/uL (1.8-7.7) Lymphocytes # (Auto) 2.2 x10^3/uL (1.0-4.8) 2.1 x10^3/uL (1.0-4.8) Monocytes # (Auto) 0.6 x10^3/uL (0.0-1.1) 0.5 x10^3/uL (0.0-1.1) Eosinophils # (Auto) 0.1 x10^3/uL (0.0-0.7) 0.1 x10^3/uL (0.0-0.7) Basophils # (Auto) 0.1 x10^3/uL (0.0-0.2) 0.1 x10^3/uL (0.0-0.2) Sodium Level 145 mmol/L (136-145) 142 mmol/L (136-145) Potassium Level 3.1 mmol/L (3.5-5.1) 4.0 mmol/L (3.5-5.1) Chloride Level 109 mmol/L (98-107) 108 mmol/L (98-107) Carbon Dioxide Level 26 mmol/L (21-32) 24 mmol/L (21-32) Anion Gap 10 (6-14) 10 (6-14) Blood Urea Nitrogen 14 mg/dL (8-26) 15 mg/dL (8-26) Creatinine 1.0 mg/dL (0.7-1.3) 1.1 mg/dL (0.7-1.3) Estimated GFR (Cockcroft-Gault) 73.2 65.6 Glucose Level 98 mg/dL (70-99) 106 mg/dL (70-99) Calcium Level 8.3 mg/dL (8.5-10.1) 8.6 mg/dL (8.5-10.1) Magnesium Level 2.1 mg/dL (1.8-2.4) Laboratory Tests Test 07/31/19 07:50 White Blood Count 6.0 x10^3/uL (4.0-11.0) Red Blood Count 2.51 x10^6/uL (4.30-5.70) Hemoglobin 7.9 g/dL (13.0-17.5) Hematocrit 23.9 % (39.0-53.0) Mean Corpuscular Volume 95 fL (79-100) Mean Corpuscular Hemoglobin 32 pg (25-35) Mean Corpuscular Hemoglobin Concent 33 g/dL (31-37) Red Cell Distribution Width 16.1 % (11.5-14.5) Platelet Count 306 x10^3/uL (140-400) Neutrophils (%) (Auto) 55 % (31-73) Lymphocytes (%) (Auto) 34 % (24-48) Monocytes (%) (Auto) 8 % (0-9) Eosinophils (%) (Auto) 2 % (0-3) Basophils (%) (Auto) 1 % (0-3) Neutrophils # (Auto) 3.3 x10^3/uL (1.8-7.7) Lymphocytes # (Auto) 2.1 x10^3/uL (1.0-4.8) Monocytes # (Auto) 0.5 x10^3/uL (0.0-1.1) Eosinophils # (Auto) 0.1 x10^3/uL (0.0-0.7) Basophils # (Auto) 0.1 x10^3/uL (0.0-0.2) Sodium Level 142 mmol/L (136-145) Potassium Level 4.0 mmol/L (3.5-5.1) Chloride Level 108 mmol/L (98-107) Carbon Dioxide Level 24 mmol/L (21-32) Anion Gap 10 (6-14) Blood Urea Nitrogen 15 mg/dL (8-26) Creatinine 1.1 mg/dL (0.7-1.3) Estimated GFR (Cockcroft-Gault) 65.6 Glucose Level 106 mg/dL (70-99) Calcium Level 8.6 mg/dL (8.5-10.1) Brief Hospital Course Mr. Rose is a 73 old who came in maybe for weakness, not sean best historian, follows with ID, fell at home and now has an acute non displaced medial malleolus fx on that ankle that he just recently had sx [facility] by [facility] abd (for some reason was done) IMPRESSION: 1. Masslike circumferential wall thickening of the mid to lower rectum concerning for malignancy. Exuberant inflammation from a distal colitis is less likely. 2. Indeterminate lytic lesions of the L1 and L2 lumbar vertebra. Metastatic lesions are not excluded. 3. Fusiform aneurysm of the abdominal aorta with a diameter of 4.8 cm. 4. Moderate volume of stool within the colon may indicate constipation and could indicate a mild obstruction due to the rectal lesion. 5. Appendix is negative. 6. 1 cm indeterminate hyperdense lesion of the left renal upper pole lateral cortex could represent a hemorrhagic cyst or a hypervascular neoplasm. This could be further assessed with outpatient sonography or MR imaging. 7. Atelectasis/infiltrate of the right lower lobe. There are scattered small nodules of the lung bases largest measuring 5 mm. Consider further assessment with outpatient CT chest imaging. HE wishes to pursie OP malignancy work up with heme onc and OP c scope, HE is non toxic appearing, I gave dee copy of his CT to bring to ID as he is not the best historian and no fam at bedside HE only wants not U Ellis duenas RN to ff up ortho consult, BEFORE dc with TIA duenas RN [facility] Procedures: none dc 34 mins HOld dc if ORTHO needs to surfically treat the non displaced ankle fx Discharge Information Condition at Discharge: Improved, Stable Disposition/Orders: D/C to Home w/ HH Scheduled Amitriptyline Hcl (Amitriptyline Hcl) 25 Mg Tablet, 1 TAB PO QHS for Neurogenic pain, #30 Ref 5 (Reported) Entered as Reported by: GABBY ANDERSON RN on 07/26/191804 Last Action: New Order on 07/26/191804 by GABBY ANDERSON RN Cholecalciferol (Vitamin D3) (D3-50) 50,000 Unit Capsule, 50,000 UNIT PO DAILY for vitamin deficiency, (Reported) Entered as Reported by: GABBY ANDERSON RN on 07/26/191804 Last Taken: Unknown Dose on 07/25/19 Last Action: New Order on 07/26/191804 by GABBY ANDERSON RN Cyanocobalamin (Vitamin B-12) (Cyanocobalamin Injection) 1,000 Mcg/1 Ml Vial, 1,000 MCG IM QMONTH for mvi, #30 Prescribed by: ANABELLE MARIO on 07/31/19 1025 Donepezil Hcl (Donepezil Hcl) 10 Mg Tablet, 1 TAB PO DAILY for dementia, #90 Ref 1 (Reported) Entered as Reported by: GABBY ANDERSON RN on 07/26/191804 Last Taken: Unknown Dose on 07/25/19 Last Action: New Order on 07/26/191804 by GABBY ANDERSON RN Finasteride (Finasteride) 5 Mg Tablet, 5 MG PO DAILY for urinary retention, (Reported) Entered as Reported by: GABBY ANDERSON RN on 07/26/191804 Last Taken: Unknown Dose on 07/25/19 Last Action: New Order on 07/26/191804 by GABBY ANDERSON RN Gabapentin (Gabapentin ) 300 Mg Capsule, 300 MG PO TID for NEUROGENIC PAIN, (Reported) Entered as Reported by: GABBY ANDERSON RN on 07/26/191804 Last Taken: 300 mg BID on 07/25/19 Last Action: New Order on 07/26/191804 by GABBY ANDERSON RN Levofloxacin (Levaquin) 750 Mg Tablet, 750 MG PO DAILY06 for rectal mass/ for 7 Days, #7 Prescribed by: ANABELLE MARIO on 07/31/19 1025 Memantine HCl (Memantine HCl) 5 Mg Tablet, 5 MG PO BID for dementia, #60 Prescribed by: ANABELLE MARIO on 07/31/19 1025 Morphine Sulfate (Morphine Sulfate Er) 15 Mg Tablet.er, 15 MG PO BID for -his home med, #60 Prescribed by: ANABELLE MARIO on 07/31/19 1025 Pantoprazole Sodium (Pantoprazole Sodium ) 40 Mg Tablet.dr, 40 MG PO DAILYAC for rectal bleed?, #60 Prescribed by: ANABELLE MARIO on 07/31/19 1025 Potassium Chloride (Potassium Chloride ) 20 Meq Tablet.er, 20 MEQ PO DAILY for SUPPLEMENT, (Reported) Entered as Reported by: GABBY ANDERSON RN on 07/26/191804 Last Taken: Unknown Dose on 07/25/19 Last Action: New Order on 07/26/191804 by GABBY ANDERSON RN Tamsulosin Hcl (Flomax) 0.4 Mg Cap.er.24h, 0.4 MG PO DAILY for urinary retention, (Reported) Entered as Reported by: GABBY ANDERSON RN on 07/26/191804 Last Taken: Unknown Dose on 07/25/19 Last Action: New Order on 07/26/191804 by GABBY ANDERSON RN Venlafaxine Hcl (Venlafaxine Hcl) 75 Mg Tablet, 75 MG PO BID for Anxiety, (Reported) Entered as Reported by: GABBY ANDERSON RN on 07/26/191804 Last Taken: Unknown Dose on 07/25/19 Last Action: New Order on 07/26/191804 by GABBY ANDERSON RN Scheduled PRN Hydrocodone/Apap 5-325 ([place] 5-325 Tablet) 1 Each Tablet, 1-2 EACH PO PRN Q6HRS PRN for - his home med, #15 as needed for pain Prescribed by: ANABELLE MARIO on 07/31/19 1025 Hemodynamically unstable?: No Is patient in severe pain?: No Is NPO status required?: No ANABELLE MARIO MD Jul 31, 2019 14:42
[2019-07-31 15:18] VITALS: BP 102/77
--- NOTE | 2019-07-31 15:59 | NUR ---
SS following up with discharge planning. SS received phone contact from pt's sister. Pt's sister was notably angry. Discharge orders on the chart. Pt's sister reported that we cannot discharge pt until a placement is found. Pt's sister wanting LTC for pt. SS explained to pt's sister that [facility] and [facility] facilities were unable to accept pt. SS notified pt's sister that pt's insurance is limited with placements and if placement is not found pt will need to discharge to home with home healthcare. SS explained that pt needs penitentiary. SS explained that if skilled placement cannot be found pt or family will need to private pay for LTC and SS explained cost of LTC. Pt's sister became angry and demanded case sports management internship phone number. SS provided number of [facility]. Pt's sister accused SS, store planner, Vandana Flynn, and pt's RN of not doing our job. SS recommended that pt's sister discuss with family and develop a plan and reported that pt is medically stable for discharge and has orders.
[2019-07-31] MEDS: LORazepam 0.5 MG TABLET PO PRN (16:03)
--- NOTE | 2019-07-31 16:48 | PDOC ---
PROGRESS NOTES Assessment Assessment IMPRESSION: Falls. Metabolic encephalopathy. Hypotension events. Leukocytosis. lactic acidosis. HTN. COPD. Anemia. Hematuria. Vit B12 deficiency. Trigiminal neuralgia, Hx. Dementia features. CT A/P 07/27 IMPRESSION: 1. Masslike circumferential wall thickening of the mid to lower rectum concerning for malignancy. Exuberant inflammation from a distal colitis is less likely. 2. Indeterminate lytic lesions of the L1 and L2 lumbar vertebra. Metastatic lesions are not excluded. 3. Fusiform aneurysm of the abdominal aorta with a diameter of 4.8 cm. 4. Moderate volume of stool within the colon may indicate constipation and could indicate a mild obstruction due to the rectal lesion. 5. Appendix is negative. 6. 1 cm indeterminate hyperdense lesion of the left renal upper pole lateral cortex could represent a hemorrhagic cyst or a hypervascular neoplasm. This could be further assessed with outpatient sonography or MR imaging. 7. Atelectasis/infiltrate of the right lower lobe. There are scattered small nodules of the lung bases largest measuring 5 mm. Consider further assessment with outpatient CT chest imaging. RECOMMENDATIONS/PLAN: Continue Aricept. Further GI evaluation as outpatient base per GI instructions. Traet medicla diseases. FU with PCP. FU with Dr. Armstrong in [facility]. SUBJECTIVE: He asks to go home. OBJECTIVE: No new neurological symptoms. Past Medical History Cardiovascular: HTN Pulmonary: COPD CENTRAL NERVOUS SYSTEM: Dementia, Other (trigeminal neuralgia) Musculoskeletal: Osteoarthritis Renal/: Benign prostatic enlarg. Past Surgical History Melanoma removal. Family History Non contributory. Social History , no alcohol or tobacco, lives with daughter Allergies No Known Allergies (Verified Allergy, Unknown, 07/09/18) ROS Negative for fever, chills, weight loss, shortness of breath, chest pain, indigestion, hematochezia, melena, and dysuria. Full 14-point review of systems is negative. Please see H&P MEDICATIONS: Refer to [facility] PHYSICAL EXAMINATION: General appearance in no acute distress. HEENT: Normocephalic and nontraumatic. Eyes, nose, ears, and throat are unremarkable. Hearing decrease. Neck is supple. No lymphadenopathy. No Crepitus. Cardiovascular: S1, S2, regular rate and rhythm. Pulmonary: Clear to auscultation bilaterally. Abdomen: Bowel sounds are positive. Extremities: No rash, lesions, or edema. No restriction of range of motion NEUROLOGICAL EXAMINATION: Awake. Oriented to time, but knew place and person. PERRL. EOMI. CN: no focal findings. Muscle tone: within normal. Muscle strength: 4+ DTR: 1-2 Plantar reflex: Neutral response bilaterally Gait: not examined in bed. Sensory exam: no abnormal findings. No cerebellar signs elicited. F-T-N test fine. Objective Objective Vital Signs Date Time Temp Pulse Resp B/P (MAP) Pulse Ox O2 Delivery O2 Flow Rate FiO2 07/31/19 15:36 Room Air 07/31/19 15:18 98.1 93 18 102/77 (85) 91 98.1 Intake and Output 07/31/19 07:00 Intake Total 550 ml Balance 550 ml Intake Oral 550 ml # Voids 2 Vitals Signs Vitals VS - Last 72 Hours, by Label Date Time Temp Pulse Resp B/P (MAP) Pulse Ox O2 Delivery O2 Flow Rate FiO2 07/31/19 15:36 Room Air 07/31/19 15:18 98.1 93 18 102/77 (85) 91 Room Air 98.1 07/31/19 11:39 Room Air 07/31/19 11:09 98.3 83 18 128/75 (92) 98 Room Air 98.3 07/31/19 08:00 Room Air 07/31/19 07:59 98 Room Air 07/31/19 07:57 98.1 77 18 110/67 (81) 98 Room Air 98.1 07/31/19 03:26 97.9 79 18 112/70 (84) 96 Room Air 97.9 07/30/19 23:28 97.7 80 18 104/67 (79) 95 Room Air 97.7 07/30/19 20:27 Room Air 07/30/19 20:00 Room Air 07/30/19 19:30 98.3 82 18 107/67 (80) 98 Room Air 98.3 07/30/19 16:05 96 Room Air 07/30/19 14:58 98.1 90 18 104/61 (75) 95 Room Air 98.1 07/30/19 12:38 96 Room Air 07/30/19 11:00 98.0 83 18 117/71 (86) 98 Room Air 98.0 07/30/19 08:34 96 Room Air 07/30/19 08:20 Room Air 07/30/19 07:00 98.7 76 18 164/62 (96) 92 Room Air 98.7 Laboratory Laboratory Laboratory Tests Test 07/31/19 07:50 White Blood Count 6.0 x10^3/uL (4.0-11.0) Red Blood Count 2.51 x10^6/uL (4.30-5.70) Hemoglobin 7.9 g/dL (13.0-17.5) Hematocrit 23.9 % (39.0-53.0) Mean Corpuscular Volume 95 fL (79-100) Mean Corpuscular Hemoglobin 32 pg (25-35) Mean Corpuscular Hemoglobin Concent 33 g/dL (31-37) Red Cell Distribution Width 16.1 % (11.5-14.5) Platelet Count 306 x10^3/uL (140-400) Neutrophils (%) (Auto) 55 % (31-73) Lymphocytes (%) (Auto) 34 % (24-48) Monocytes (%) (Auto) 8 % (0-9) Eosinophils (%) (Auto) 2 % (0-3) Basophils (%) (Auto) 1 % (0-3) Neutrophils # (Auto) 3.3 x10^3/uL (1.8-7.7) Lymphocytes # (Auto) 2.1 x10^3/uL (1.0-4.8) Monocytes # (Auto) 0.5 x10^3/uL (0.0-1.1) Eosinophils # (Auto) 0.1 x10^3/uL (0.0-0.7) Basophils # (Auto) 0.1 x10^3/uL (0.0-0.2) Sodium Level 142 mmol/L (136-145) Potassium Level 4.0 mmol/L (3.5-5.1) Chloride Level 108 mmol/L (98-107) Carbon Dioxide Level 24 mmol/L (21-32) Anion Gap 10 (6-14) Blood Urea Nitrogen 15 mg/dL (8-26) Creatinine 1.1 mg/dL (0.7-1.3) Estimated GFR (Cockcroft-Gault) 65.6 Glucose Level 106 mg/dL (70-99) Calcium Level 8.6 mg/dL (8.5-10.1) Microbiology 07/25/19 Urine Culture - Final, Complete 07/25/19 Urine Culture Result 1 (TERE) - Final, Complete 07/25/19 Blood Culture - Final, Complete NO GROWTH AFTER 5 DAYS Medication Medications Current Medications Lorazepam (Ativan) 0.5 mg PRN Q12HRS PRN PO ANXIETY / AGITATION Last administered on 07/31/19at 16:03; Start 07/30/19 at 20:45 Memantine (Namenda) 5 mg BID PO ; Start 08/02/19 at 09:00 Comment Review of Relevant I have reviewed the following items torie (where applicable) has been applied. SIRI PAULA MD Jul 31, 2019 16:47
[2019-07-31 19:34] VITALS: BP 121/72
[2019-07-31 23:00] VITALS: BP 114/61
[2019-08-01] MEDS: ACETAMINOPHEN 325 MG TABLET. PO PRN ×2 (00:10→08:27)
[2019-08-01 03:00] VITALS: BP 107/69
[2019-08-01 05:08] LABS: BASO # 0.1 x10^3/uL (0.0-0.2); BASO % 2 % (0-3); EOS # 0.2 x10^3/uL (0.0-0.7); EOS % 2 % (0-3); HEMATOCRIT 22.6 % (39.0-53.0); HEMOGLOBIN 7.6 g/dL (13.0-17.5); LYMPH # 2.5 x10^3/uL (1.0-4.8); LYMPH % 38 % (24-48); MEAN CORPUSCULAR HEMOGLOBIN 32 pg (25-35); MEAN CORPUSCULAR HGB CONC 34 g/dL (31-37); MEAN CORPUSCULAR VOLUME 95 fL (79-100); MONO # 0.6 x10^3/uL (0.0-1.1); MONO % 9 % (0-9); NEUT # 3.2 x10^3/uL (1.8-7.7); NEUT % 49 % (31-73); PLATELET COUNT 312 x10^3/uL (140-400); RED BLOOD COUNT 2.39 x10^6/uL (4.30-5.70); RED CELL DISTRIBUTION WIDTH 16.3 % (11.5-14.5); WHITE BLOOD COUNT 6.6 x10^3/uL (4.0-11.0)
[2019-08-01 05:38] LABS: CALCIUM 8.5 mg/dL (8.5-10.1); GFR 73.2; POTASSIUM 3.6 mmol/L (3.5-5.1)
[2019-08-01 07:00] VITALS: BP 107/70
--- NOTE | 2019-08-01 08:03 | CONS ---
DATE OF CONSULTATION: 07/31/2019 ORTHOPEDIC CONSULTATION REASON FOR CONSULTATION: Left ankle pain. HISTORY OF PRESENT ILLNESS: The patient normally gets his care at the [facility] and was admitted for encephalopathy and weight loss and some hypoxia. He reports a several-day history. He is not exactly sure of the onset of medial-sided left ankle pain and some more ongoing left heel pain. He had a more remote history of ORIF of an ankle fracture several months ago that was done at the [facility] in [place], [place]. PAST MEDICAL HISTORY: Significant for some cognitive decline, hypercholesterolemia, trigeminal neuralgia giving him chronic pain, some prostatic hypertrophy, COPD and hyperlipidemia. PAST SURGICAL HISTORY: Both of the left ankle as well as for a melanoma on his face. FAMILY HISTORY: Hypertension, high cholesterol. SOCIAL HISTORY: He quit smoking, but was a very heavy smoker about 2 packs per day for a 40-year history. Denies alcohol or drug use. He also says that he has difficulties with his family and does not get along with them. MEDICATIONS: List is reviewed. ALLERGIES: He has no known drug allergies. REVIEW OF SYSTEMS: Significant for the ankle and heel pain as well as a 30-pound weight loss recently and some chronic pain due to a trigeminal neuralgia in his neck as well as some gait difficulties. He is weightbearing with a walker, but has to walk slowly. He was previously in a Cam walker boot, but says he has some chronic back pain and that was bothering it worse. PHYSICAL EXAMINATION: EXTREMITIES: He has good stability of the left ankle, tender over the medial malleolus directly on palpation. He does have a well-healed incision from previous fixation of an ankle fracture. Normal examination of the contralateral right ankle, bilateral hips and knees with overall intact motor function, distal pulses, sensation, skin in both lower extremities throughout. IMAGING: X-rays show a nondisplaced crack in the medial malleolus, acceptably aligned ankle joint mortise and hardware over his distal fibula and a total of 3 syndesmotic screws present and intact. IMPRESSION: 1. Nondisplaced fracture, left medial malleolus. 2. History of left ankle fracture. 3. Admission for encephalopathy and some confusion, severe weight loss. TREATMENT PLAN: I recommended nonoperative treatment for this condition for him. I would like to see him back in a couple of weeks in our office to either follow up with me or as appropriate, followup with the [facility] for repeat x-rays to ensure the fracture remains healing and nondisplaced. I did go over with him that I do not think the Cam walker boot is going to be necessary as long as he is able to walk with walker support. I considered a Velcro ASO ankle splint; however, that certainly could cause him a little more symptoms due to the pressure of the splint and it may not be necessary. Cam walker boot I think is going to hurt his back and would be overkill and likewise surgery could be considered if he has any displacement along with actual consideration of removal of his syndesmotic screws as those typically are taken out at about 3 months post-implantation. Again, I would be happy to have him follow up with me or the [facility] as indicated above. JUAN OTOOLE MD DR: JOSE MARTIN/antonio JOB#: [id number] / [id number]
[2019-08-01] MEDS: IPRATRPIUM/ALBUTEROL 0.5/2.5MG 3 ML NEBU. NEB SCH ×4 (08:08→19:18)
[2019-08-01] MEDS: POLYETHYLENE GLYCOL 3350 17 GM PACKET. PO SCH (08:27)
[2019-08-01] MEDS: MEMANTINE 5 MG TABLET. PO SCH (08:27)
[2019-08-01] MEDS: PANTOPRAZOLE 40 MG TABLET.DR. PO SCH (08:27)
[2019-08-01] MEDS: LACTOBACILLUS RHAMNOSUS GG 1 CAPSULE. PO SCH ×2 (08:28→22:09)
[2019-08-01] MEDS: GABAPENTIN 100 MG CAPSULE. PO SCH ×2 (08:28→22:10)
[2019-08-01] MEDS: DONEPEZIL HCL 10 MG TABLET. PO SCH (09:04)
--- NOTE | 2019-08-01 09:35 | PDOC ---
Subjective: Subjective: Wants to talk to a adoption social worker about [facility]. No GI complaints. Objective: Objective: On PPI and B12. Vital Signs: Vital Signs Date Time Temp Pulse Resp B/P (MAP) Pulse Ox O2 Delivery O2 Flow Rate FiO2 08/01/19 08:11 98 Room Air 08/01/19 07:00 97.5 72 18 107/70 (82) 97.5 Labs: Laboratory Tests Test 08/01/19 04:40 White Blood Count 6.6 x10^3/uL Red Blood Count 2.39 x10^6/uL Hemoglobin 7.6 g/dL Hematocrit 22.6 % Mean Corpuscular Volume 95 fL Mean Corpuscular Hemoglobin 32 pg Mean Corpuscular Hemoglobin Concent 34 g/dL Red Cell Distribution Width 16.3 % Platelet Count 312 x10^3/uL Neutrophils (%) (Auto) 49 % Lymphocytes (%) (Auto) 38 % Monocytes (%) (Auto) 9 % Eosinophils (%) (Auto) 2 % Basophils (%) (Auto) 2 % Neutrophils # (Auto) 3.2 x10^3/uL Lymphocytes # (Auto) 2.5 x10^3/uL Monocytes # (Auto) 0.6 x10^3/uL Eosinophils # (Auto) 0.2 x10^3/uL Basophils # (Auto) 0.1 x10^3/uL Sodium Level 142 mmol/L Potassium Level 3.6 mmol/L Chloride Level 108 mmol/L Carbon Dioxide Level 26 mmol/L Anion Gap 8 Blood Urea Nitrogen 16 mg/dL Creatinine 1.0 mg/dL Estimated GFR (Cockcroft-Gault) 73.2 Glucose Level 96 mg/dL Calcium Level 8.5 mg/dL PE: GEN: NAD LUNGS: CTAB HEART: RRR ABD: NABS, S/ND/NT NEURO/PSYCH: probably forgetful A/P: Anemia, h/o hematuria - Hgb remains in 7s Ankle fracture - nonop management per ortho -- Awaiting DC, possible outpt 'scopes. Hemodynamically unstable?: No Is patient in severe pain?: No Is NPO status required?: No LUIS F PINK Aug 01, 2019 09:35
[2019-08-01 11:00] VITALS: BP 99/58
--- NOTE | 2019-08-01 11:01 | NUR ---
MARGARITA following. Discussed with RN, pt is from home with daughter. Family wanting facility in [facility]. MARGARITA phoned pt's sister, Lynnette ([phone]) she is agreeable to referral to [facility]. MARGARITA faxed referral, awaiting acceptance decision and insurance auth. MARGARITA will continue to follow. Addendum: 08/01/19 at 1337 by ESTEVAN AVILA Pt accepted at [facility], pending insurance auth. MARGARITA will continue to follow.
--- NOTE | 2019-08-01 11:15 | PDOC ---
PROGRESS NOTES Chief Complaint Chief Complaint 1. dementia with delirium, improved, 2. Leukocytosis , SIRS 3. cognitive decline x months, patient with worsening dementia. Patient will likely need placement. Mild foci of decreased aeration within the hemispheric white matter, most often due to chronic microvascular ischemia. ct head 07/25 4. severe protein-caloric malnutrition 5. HX copd, remote heavy tobacco abuse 6. abnormal weight loss, recent 7. anemia, with weaskness 8. hematuria has resolved 9. Acute non displaced medial malleolus fx, recnt sx - NON Surgical for now 10. GEN weakness, SNU candidate History of Present Illness History of Present Illness appreciate ortho, non surgical; ankle fx, use walker Sister DPOa< RONNY, adamant about SNU, pt now agreeable SW working on that HE is off tele and no med issues PLAN: MEdically ready for SNU, mar on chart FUll code Walker, high fall risk [facility] Saavedra of [place] Vitals Vitals Vital Signs Date Time Temp Pulse Resp B/P (MAP) Pulse Ox O2 Delivery O2 Flow Rate FiO2 08/01/19 10:52 Room Air 08/01/19 08:11 98 08/01/19 07:00 97.5 72 18 107/70 (82) 97.5 Physical Exam Physical Exam GENERAL: Alert and oriented gentleman, not in distress. VITAL SIGNS: Stable, afebrile. HEENT: NAD. NECK: Supple. No JVP, no lymphadenopathy. LUNGS: Clear. HEART: S1, S2 regular. ABDOMEN: Benign. EXTREMITIES: No edema or cyanosis. SKIN: Unremarkable. NEUROLOGIC: The patient is neurologically alert, awake, able to communicate simple things, but memory is poor. MSK: sharp pain localized of right ribs General: Cooperative, No acute distress, Other (senile skin turgor) Heart: Regular rate, Normal S1, Normal S2 Lungs: Clear Abdomen: Normal bowel sounds, Soft, No tenderness, Other (thin) Extremities: No clubbing Skin: No rashes, No breakdown Labs LABS Laboratory Tests Test 08/01/19 04:40 White Blood Count 6.6 x10^3/uL (4.0-11.0) Red Blood Count 2.39 x10^6/uL (4.30-5.70) Hemoglobin 7.6 g/dL (13.0-17.5) Hematocrit 22.6 % (39.0-53.0) Mean Corpuscular Volume 95 fL (79-100) Mean Corpuscular Hemoglobin 32 pg (25-35) Mean Corpuscular Hemoglobin Concent 34 g/dL (31-37) Red Cell Distribution Width 16.3 % (11.5-14.5) Platelet Count 312 x10^3/uL (140-400) Neutrophils (%) (Auto) 49 % (31-73) Lymphocytes (%) (Auto) 38 % (24-48) Monocytes (%) (Auto) 9 % (0-9) Eosinophils (%) (Auto) 2 % (0-3) Basophils (%) (Auto) 2 % (0-3) Neutrophils # (Auto) 3.2 x10^3/uL (1.8-7.7) Lymphocytes # (Auto) 2.5 x10^3/uL (1.0-4.8) Monocytes # (Auto) 0.6 x10^3/uL (0.0-1.1) Eosinophils # (Auto) 0.2 x10^3/uL (0.0-0.7) Basophils # (Auto) 0.1 x10^3/uL (0.0-0.2) Sodium Level 142 mmol/L (136-145) Potassium Level 3.6 mmol/L (3.5-5.1) Chloride Level 108 mmol/L (98-107) Carbon Dioxide Level 26 mmol/L (21-32) Anion Gap 8 (6-14) Blood Urea Nitrogen 16 mg/dL (8-26) Creatinine 1.0 mg/dL (0.7-1.3) Estimated GFR (Cockcroft-Gault) 73.2 Glucose Level 96 mg/dL (70-99) Calcium Level 8.5 mg/dL (8.5-10.1) Review of Systems Review of Systems weak on exertion, all esle si neg Assessment and Plan Assessmemt and Plan Problems Medical Problems: (1) Altered level of consciousness Status: Acute (2) Anemia Status: Acute (3) Dehydration Status: Acute (4) Elevated lactic acid level Status: Acute (5) Hypoalbuminemia Status: Acute (6) Hypotension Status: Acute (7) Urinary tract infection Status: Acute Comment Review of Relevant I have reviewed the following items torie (where applicable) has been applied. Labs Laboratory Tests Test 07/31/19 07:50 08/01/19 04:40 White Blood Count 6.0 x10^3/uL (4.0-11.0) 6.6 x10^3/uL (4.0-11.0) Red Blood Count 2.51 x10^6/uL (4.30-5.70) 2.39 x10^6/uL (4.30-5.70) Hemoglobin 7.9 g/dL (13.0-17.5) 7.6 g/dL (13.0-17.5) Hematocrit 23.9 % (39.0-53.0) 22.6 % (39.0-53.0) Mean Corpuscular Volume 95 fL (79-100) 95 fL (79-100) Mean Corpuscular Hemoglobin 32 pg (25-35) 32 pg (25-35) Mean Corpuscular Hemoglobin Concent 33 g/dL (31-37) 34 g/dL (31-37) Red Cell Distribution Width 16.1 % (11.5-14.5) 16.3 % (11.5-14.5) Platelet Count 306 x10^3/uL (140-400) 312 x10^3/uL (140-400) Neutrophils (%) (Auto) 55 % (31-73) 49 % (31-73) Lymphocytes (%) (Auto) 34 % (24-48) 38 % (24-48) Monocytes (%) (Auto) 8 % (0-9) 9 % (0-9) Eosinophils (%) (Auto) 2 % (0-3) 2 % (0-3) Basophils (%) (Auto) 1 % (0-3) 2 % (0-3) Neutrophils # (Auto) 3.3 x10^3/uL (1.8-7.7) 3.2 x10^3/uL (1.8-7.7) Lymphocytes # (Auto) 2.1 x10^3/uL (1.0-4.8) 2.5 x10^3/uL (1.0-4.8) Monocytes # (Auto) 0.5 x10^3/uL (0.0-1.1) 0.6 x10^3/uL (0.0-1.1) Eosinophils # (Auto) 0.1 x10^3/uL (0.0-0.7) 0.2 x10^3/uL (0.0-0.7) Basophils # (Auto) 0.1 x10^3/uL (0.0-0.2) 0.1 x10^3/uL (0.0-0.2) Sodium Level 142 mmol/L (136-145) 142 mmol/L (136-145) Potassium Level 4.0 mmol/L (3.5-5.1) 3.6 mmol/L (3.5-5.1) Chloride Level 108 mmol/L (98-107) 108 mmol/L (98-107) Carbon Dioxide Level 24 mmol/L (21-32) 26 mmol/L (21-32) Anion Gap 10 (6-14) 8 (6-14) Blood Urea Nitrogen 15 mg/dL (8-26) 16 mg/dL (8-26) Creatinine 1.1 mg/dL (0.7-1.3) 1.0 mg/dL (0.7-1.3) Estimated GFR (Cockcroft-Gault) 65.6 73.2 Glucose Level 106 mg/dL (70-99) 96 mg/dL (70-99) Calcium Level 8.6 mg/dL (8.5-10.1) 8.5 mg/dL (8.5-10.1) Laboratory Tests Test 08/01/19 04:40 White Blood Count 6.6 x10^3/uL (4.0-11.0) Red Blood Count 2.39 x10^6/uL (4.30-5.70) Hemoglobin 7.6 g/dL (13.0-17.5) Hematocrit 22.6 % (39.0-53.0) Mean Corpuscular Volume 95 fL (79-100) Mean Corpuscular Hemoglobin 32 pg (25-35) Mean Corpuscular Hemoglobin Concent 34 g/dL (31-37) Red Cell Distribution Width 16.3 % (11.5-14.5) Platelet Count 312 x10^3/uL (140-400) Neutrophils (%) (Auto) 49 % (31-73) Lymphocytes (%) (Auto) 38 % (24-48) Monocytes (%) (Auto) 9 % (0-9) Eosinophils (%) (Auto) 2 % (0-3) Basophils (%) (Auto) 2 % (0-3) Neutrophils # (Auto) 3.2 x10^3/uL (1.8-7.7) Lymphocytes # (Auto) 2.5 x10^3/uL (1.0-4.8) Monocytes # (Auto) 0.6 x10^3/uL (0.0-1.1) Eosinophils # (Auto) 0.2 x10^3/uL (0.0-0.7) Basophils # (Auto) 0.1 x10^3/uL (0.0-0.2) Sodium Level 142 mmol/L (136-145) Potassium Level 3.6 mmol/L (3.5-5.1) Chloride Level 108 mmol/L (98-107) Carbon Dioxide Level 26 mmol/L (21-32) Anion Gap 8 (6-14) Blood Urea Nitrogen 16 mg/dL (8-26) Creatinine 1.0 mg/dL (0.7-1.3) Estimated GFR (Cockcroft-Gault) 73.2 Glucose Level 96 mg/dL (70-99) Calcium Level 8.5 mg/dL (8.5-10.1) Microbiology 07/25/19 Urine Culture - Final, Complete 07/25/19 Urine Culture Result 1 (TERE) - Final, Complete 07/25/19 Blood Culture - Final, Complete NO GROWTH AFTER 5 DAYS Medications Current Medications Sodium Chloride 1,000 ml @ 1,000 mls/hr Q1H IV Last administered on 07/25/19at 12:34; Start 07/25/19 at 12:34; Stop 07/25/19 at 13:33; Status DC Ceftriaxone Sodium (Rocephin) 1 gm 1X ONCE IVP Last administered on 07/25/19at 15:29; Start 07/25/19 at 15:00; Stop 07/25/19 at 15:01; Status DC Piperacillin Sod/ Tazobactam Sod 3.375 gm/Sodium Chloride 50 ml @ 100 mls/hr Q6HRS IV Last administered on 07/26/19at 11:47; Start 07/26/19 at 00:00; Stop 07/26/19 at 15:34; Status DC Sodium Chloride 1,000 ml @ 150 mls/hr Q6H40M IV Last administered on 07/26/19at 11:46; Start 07/25/19 at 15:13; Stop 07/26/19 at 15:12; Status DC Fentanyl Citrate (Fentanyl 2ml Vial) 50 mcg 1X ONCE IVP Last administered on 07/25/19at 15:42; Start 07/25/19 at 15:15; Stop 07/25/19 at 15:20; Status DC Piperacillin Sod/ Tazobactam Sod 3.375 gm/Sodium Chloride 50 ml @ 100 mls/hr 1X ONCE IV Last administered on 07/25/19at 15:30; Start 07/25/19 at 16:00; Stop 07/25/19 at 16:29; Status DC Sodium Chloride (Normal Saline Flush) 3 ml QSHIFT PRN IV AFTER MEDS AND BLOOD DRAWS; Start 07/25/19 at 16:45 Sodium Chloride 1,000 ml @ 70 mls/hr [id number] IV Last administered on 07/28/19at 16:01; Start 07/25/19 at 16:32; Stop 07/28/19 at 16:53; Status DC Ondansetron HCl (Zofran) 4 mg PRN Q4HRS PRN IV NAUSEA/VOMITING; Start 07/25/19 at 16:45 Acetaminophen (Tylenol) 650 mg PRN Q4HRS PRN PO TEMP OVER 100.4F OR MILD PAIN Last administered on 08/01/19at 08:27; Start 07/25/19 at 16:45 Sodium Monofluorophosphate (Fleet Adult) 133 ml PRN DAILY PRN OK CONSTIPATION; Start 07/25/19 at 16:45 Docusate Sodium (Colace) 100 mg PRN BID PRN PO CONSTIPATION; Start 07/25/19 at 16:45 Albuterol/ Ipratropium (Duoneb) 3 ml Q4HRS NEB Last administered on 07/28/19at 00:08; Start 07/25/19 at 20:00; Stop 07/28/19 at 00:50; Status DC Guaifenesin (Robitussin) 200 mg PRN Q4HRS PRN PO COUGH; Start 07/25/19 at 16:45 Lorazepam (Ativan) 0.5 mg PRN Q4HRS PRN PO ANXIETY / AGITATION Last administered on 07/29/19at 20:58; Start 07/25/19 at 16:45; Stop 07/30/19 at 15:50; Status DC Enoxaparin Sodium (Lovenox 40mg Syringe) 40 mg DAILY SQ Last administered on 07/30/19at 09:39; Start 07/26/19 at 09:00; Stop 07/30/19 at 11:07; Status DC Donepezil HCl (Aricept) 10 mg DAILY PO Last administered on 08/01/19at 09:04; Start 07/26/19 at 09:00 Memantine (Namenda) 5 mg DAILY PO Last administered on 08/01/19at 08:27; Start 07/26/19 at 09:00; Stop 08/01/19 at 09:01; Status DC Memantine (Namenda) 5 mg BID PO ; Start 08/02/19 at 09:00 Gabapentin (Neurontin) 200 mg 1X PO ; Start 07/25/19 at 19:15; Stop 07/25/19 at 20:05; Status DC Gabapentin (Neurontin) 200 mg BID PO Last administered on 08/01/19at 08:28; Start 07/26/19 at 09:00 Gabapentin (Neurontin) 200 mg 1X ONCE PO Last administered on 07/25/19at 20:10; Start 07/25/19 at 20:15; Stop 07/25/19 at 20:16; Status DC Morphine Sulfate (Morphine Sulfate) 2 mg PRN Q4HRS PRN IV PAIN Last administered on 07/28/19at 00:43; Start 07/26/19 at 00:30; Stop 07/30/19 at 15:50; Status DC Lactobacillus Rhamnosus (Culturelle) 1 cap BID PO Last administered on 07/19 11/05at 08:28; Start 07/26/19 at 21:00 Cyanocobalamin (Vitamin B-12) 1,000 mcg 1X ONCE IM Last administered on 07/26/19at 14:03; Start 07/26/19 at 13:30; Stop 07/26/19 at 13:31; Status DC Cyanocobalamin (Vitamin B-12) 1,000 mcg QMONTH IM Last administered on 07/27/19at 09:19; Start 07/27/19 at 09:00 Levofloxacin/ Dextrose 100 ml @ 100 mls/hr Q24H IV Last administered on 07/28/19at 16:04; Start 07/27/19 at 12:00; Stop 07/28/19 at 16:53; Status DC Pantoprazole Sodium (Protonix) 40 mg DAILYAC PO Last administered on 08/01/19at 08:27; Start 07/27/19 at 17:00 Iohexol (Omnipaque 240 Mg/ml) 30 ml 1X ONCE PO Last administered on 07/27/19at 22:55; Start 07/27/19 at 23:00; Stop 07/27/19 at 23:01; Status DC Iohexol (Omnipaque 300 Mg/ml) 75 ml 1X ONCE IV Last administered on 07/27/19at 22:55; Start 07/27/19 at 23:00; Stop 07/27/19 at 23:01; Status DC Info (CONTRAST GIVEN -- Rx MONITORING) 1 each PRN DAILY PRN MC SEE COMMENTS; Start 07/27/19 at 23:00; Stop 07/29/19 at 22:59; Status DC Albuterol/ Ipratropium (Duoneb) 3 ml RTQID NEB Last administered on 08/01/19at 10:52; Start 07/28/19 at 08:00 Ringer's Solution 1,000 ml @ 75 mls/hr 1X ONCE IV ; Start 07/28/19 at 10:45; Stop 07/29/19 at 00:04; Status DC Propofol 20 ml @ As Directed STK-MED ONCE IV ; Start 07/28/19 at 11:40; Stop 07/28/19 at 11:40; Status DC Lidocaine HCl (Lidocaine Pf 2% Vial) 5 ml STK-MED ONCE .ROUTE ; Start 07/28/19 at 11:40; Stop 07/28/19 at 11:40; Status DC Polyethylene Glycol (miraLAX PACKET) 17 gm DAILY PO Last administered on 08/01/19at 08:27; Start 07/28/19 at 14:00 Ziprasidone (Geodon Im) 20 mg 1X PRN IM agitation; Start 07/28/19 at 17:00 Levofloxacin (Levaquin) 750 mg DAILY06 PO Last administered on 08/01/19at 05:34; Start 07/29/19 at 06:00 Potassium Chloride (Klor-Con) 40 meq 1X ONCE PO Last administered on 07/30/19at 09:38; Start 07/30/19 at 08:30; Stop 07/30/19 at 08:31; Status DC Potassium Chloride (Klor-Con) 40 meq 1X ONCE PO Last administered on 07/30/19at 12:44; Start 07/30/19 at 12:00; Stop 07/30/19 at 12:01; Status DC Olanzapine (ZyPREXA ZYDIS) 5 mg PRN QID PRN PO anxiety/agitation; Start 07/30/19 at 16:00 Lorazepam (Ativan) 0.5 mg PRN Q12HRS PRN PO ANXIETY / AGITATION Last administered on 07/31/19at 16:03; Start 07/30/19 at 20:45 Active Scripts Active Pantoprazole Sodium (Pantoprazole Sodium) 40 Mg Tablet.dr 40 Mg PO DAILYAC Cyanocobalamin Injection (Cyanocobalamin (Vitamin B-12)) 1,000 Mcg/1 Ml Vial 1,000 Mcg IM QMONTH Memantine HCl 5 Mg Tablet 5 Mg PO BID Levaquin (Levofloxacin) 750 Mg Tablet 750 Mg PO DAILY06 7 Days Morphine Sulfate Er (Morphine Sulfate) 15 Mg Tablet.er 15 Mg PO BID [place] 5-325 Tablet (Acetaminophen/Hydrocodone Bitart) 1 Each Tablet 1-2 Each PO PRN Q6HRS PRN as needed for pain Reported D3-50 (Cholecalciferol (Vitamin D3)) 50,000 Unit Capsule 50,000 Unit PO DAILY Finasteride 5 Mg Tablet 5 Mg PO DAILY Flomax (Tamsulosin Hcl) 0.4 Mg Cap.er.24h 0.4 Mg PO DAILY Venlafaxine Hcl 75 Mg Tablet 75 Mg PO BID Donepezil Hcl 10 Mg Tablet 1 Tab PO DAILY Amitriptyline Hcl 25 Mg Tablet 1 Tab PO QHS Gabapentin (Gabapentin) 300 Mg Capsule 300 Mg PO TID Potassium Chloride (Potassium Chloride) 20 Meq Tablet.er 20 Meq PO DAILY Vitals/I & O Vital Sign - Last 24 Hours 07/31/19 07/31/19 07/31/19 07/31/19 11:39 15:18 15:36 19:34 Temp 98.1 97.6 98.1 97.6 Pulse 93 90 Resp 18 20 B/P (MAP) 102/77 (85) 121/72 (88) Pulse Ox 91 97 O2 Delivery Room Air Room Air Room Air Room Air 07/31/19 07/31/19 07/31/19 08/01/19 20:30 21:04 23:00 03:00 Temp 98.2 97.7 98.2 97.7 Pulse 85 75 Resp 18 18 B/P (MAP) 114/61 (78) 107/69 (82) Pulse Ox 97 94 97 O2 Delivery Room Air Room Air Room Air Room Air 08/01/19 08/01/19 08/01/19 07:00 08:11 10:52 Temp 97.5 97.5 Pulse 72 Resp 18 B/P (MAP) 107/70 (82) Pulse Ox 96 98 O2 Delivery Room Air Room Air Room Air Intake and Output 07/31/19 07/31/19 08/01/19 15:00 23:00 07:00 Intake Total 120 ml 300 ml 500 ml Output Total 400 ml 400 ml 300 ml Balance -280 ml -100 ml 200 ml Hemodynamically unstable?: No Is patient in severe pain?: No Is NPO status required?: No ANABELLE MARIO MD Aug 01, 2019 11:15
[2019-08-01 15:04] VITALS: BP 113/62
--- NOTE | 2019-08-01 15:07 | PDOC ---
PROGRESS NOTES Assessment Assessment Falls. Metabolic encephalopathy. Hypotension events. Leukocytosis. Lactic acidosis. HTN. COPD. Anemia. Hematuria. Vit B12 deficiency. Trigiminal neuralgia, Hx. Dementia features. CT A/P 07/27 IMPRESSION: 1. Masslike circumferential wall thickening of the mid to lower rectum concerning for malignancy. Exuberant inflammation from a distal colitis is less likely. 2. Indeterminate lytic lesions of the L1 and L2 lumbar vertebra. Metastatic lesions are not excluded. 3. Fusiform aneurysm of the abdominal aorta with a diameter of 4.8 cm. 4. Moderate volume of stool within the colon may indicate constipation and could indicate a mild obstruction due to the rectal lesion. 5. Appendix is negative. 6. 1 cm indeterminate hyperdense lesion of the left renal upper pole lateral cortex could represent a hemorrhagic cyst or a hypervascular neoplasm. This could be further assessed with outpatient sonography or MR imaging. 7. Atelectasis/infiltrate of the right lower lobe. There are scattered small nodules of the lung bases largest measuring 5 mm. Consider further assessment with outpatient CT chest imaging. RECOMMENDATIONS/PLAN: Continue Aricept. Further GI evaluation as outpatient base per GI instructions. Traet medical diseases. Discussed with his daughter and ex- at bedside on 08/01/19. FU with PCP. FU with Dr. Armstrong or his Neurologist in [place] for dementia. SUBJECTIVE: He asks to go home. OBJECTIVE: No new neurological symptoms. Past Medical History Cardiovascular: HTN Pulmonary: COPD CENTRAL NERVOUS SYSTEM: Dementia, Other (trigeminal neuralgia) Musculoskeletal: Osteoarthritis Renal/: Benign prostatic enlarg. Past Surgical History Melanoma removal. Family History Non contributory. Social History , no alcohol or tobacco, lives with daughter Allergies No Known Allergies (Verified Allergy, Unknown, 07/09/18) ROS Negative for fever, chills, weight loss, shortness of breath, chest pain, indigestion, hematochezia, melena, and dysuria. Full 14-point review of systems is negative. Please see H&P MEDICATIONS: Refer to MAR PHYSICAL EXAMINATION: General appearance in no acute distress. HEENT: Normocephalic and nontraumatic. Eyes, nose, ears, and throat are unremarkable. Hearing decrease. Neck is supple. No lymphadenopathy. No Crepitus. Cardiovascular: S1, S2, regular rate and rhythm. Pulmonary: Clear to auscultation bilaterally. Abdomen: Bowel sounds are positive. Extremities: No rash, lesions, or edema. No restriction of range of motion NEUROLOGICAL EXAMINATION: Awake. Not oriented to time, but knew place and person. PERRL. EOMI. CN: no focal findings. Muscle tone: within normal. Muscle strength: 4+ DTR: 1-2 Plantar reflex: Neutral response bilaterally Gait: not examined in bed. Sensory exam: no abnormal findings. No cerebellar signs elicited. F-T-N test fine. Objective Objective Vital Signs Date Time Temp Pulse Resp B/P (MAP) Pulse Ox O2 Delivery O2 Flow Rate FiO2 08/01/19 15:04 97.6 85 16 113/62 (79) 100 Room Air 97.6 Intake and Output 08/01/19 07:00 Intake Total 920 ml Output Total 1100 ml Balance -180 ml Intake Oral 920 ml Output Urine Total 1100 ml # Voids 2 # Bowel Movements 3 Vitals Signs Vitals VS - Last 72 Hours, by Label Date Time Temp Pulse Resp B/P (MAP) Pulse Ox O2 Delivery O2 Flow Rate FiO2 08/01/19 15:04 97.6 85 16 113/62 (79) 100 Room Air 97.6 08/01/19 14:45 Room Air 08/01/19 11:00 97.8 73 20 99/58 (72) 97 Room Air 97.8 08/01/19 10:52 Room Air 08/01/19 08:11 98 Room Air 08/01/19 08:00 Room Air 08/01/19 07:00 97.5 72 18 107/70 (82) 96 Room Air 97.5 08/01/19 03:00 97.7 75 18 107/69 (82) 97 Room Air 97.7 07/31/19 23:00 98.2 85 18 114/61 (78) 94 Room Air 98.2 07/31/19 21:04 97 Room Air 07/31/19 20:30 Room Air 07/31/19 19:34 97.6 90 20 121/72 (88) 97 Room Air 97.6 07/31/19 15:36 Room Air 07/31/19 15:18 98.1 93 18 102/77 (85) 91 Room Air 98.1 07/31/19 11:39 Room Air 07/31/19 11:09 98.3 83 18 128/75 (92) 98 Room Air 98.3 1/13/20 08:00 Room Air 07/31/19 07:59 98 Room Air 07/31/19 07:57 98.1 77 18 110/67 (81) 98 Room Air 98.1 Laboratory Laboratory Laboratory Tests Test 08/01/19 04:40 White Blood Count 6.6 x10^3/uL (4.0-11.0) Red Blood Count 2.39 x10^6/uL (4.30-5.70) Hemoglobin 7.6 g/dL (13.0-17.5) Hematocrit 22.6 % (39.0-53.0) Mean Corpuscular Volume 95 fL (79-100) Mean Corpuscular Hemoglobin 32 pg (25-35) Mean Corpuscular Hemoglobin Concent 34 g/dL (31-37) Red Cell Distribution Width 16.3 % (11.5-14.5) Platelet Count 312 x10^3/uL (140-400) Neutrophils (%) (Auto) 49 % (31-73) Lymphocytes (%) (Auto) 38 % (24-48) Monocytes (%) (Auto) 9 % (0-9) Eosinophils (%) (Auto) 2 % (0-3) Basophils (%) (Auto) 2 % (0-3) Neutrophils # (Auto) 3.2 x10^3/uL (1.8-7.7) Lymphocytes # (Auto) 2.5 x10^3/uL (1.0-4.8) Monocytes # (Auto) 0.6 x10^3/uL (0.0-1.1) Eosinophils # (Auto) 0.2 x10^3/uL (0.0-0.7) Basophils # (Auto) 0.1 x10^3/uL (0.0-0.2) Sodium Level 142 mmol/L (136-145) Potassium Level 3.6 mmol/L (3.5-5.1) Chloride Level 108 mmol/L (98-107) Carbon Dioxide Level 26 mmol/L (21-32) Anion Gap 8 (6-14) Blood Urea Nitrogen 16 mg/dL (8-26) Creatinine 1.0 mg/dL (0.7-1.3) Estimated GFR (Cockcroft-Gault) 73.2 Glucose Level 96 mg/dL (70-99) Calcium Level 8.5 mg/dL (8.5-10.1) Microbiology 07/25/19 Urine Culture - Final, Complete 07/25/19 Urine Culture Result 1 (TERE) - Final, Complete 07/25/19 Blood Culture - Final, Complete NO GROWTH AFTER 5 DAYS Medication Medications Current Medications Memantine (Namenda) 5 mg BID PO ; Start 08/02/19 at 09:00 Oxycodone/ Acetaminophen (Percocet 5/325) 1 tab PRN Q4HRS PRN PO PAIN; Start 08/01/19 at 15:00 Comment Review of Relevant I have reviewed the following items torie (where applicable) has been applied. SIRI PAULA MD Aug 01, 2019 15:07
[2019-08-01] MEDS: oxyCODONE/APAP 5/325 1 TAB TABLET PO PRN ×2 (15:11→22:09)
[2019-08-01 19:00] VITALS: BP 108/65
[2019-08-01] MEDS: LORazepam 0.5 MG TABLET PO PRN (22:09)
[2019-08-01 23:00] VITALS: BP 103/65
[2019-08-02] MEDS: oxyCODONE/APAP 5/325 1 TAB TABLET PO PRN ×2 (02:32→04:23)
[2019-08-02 03:00] VITALS: BP 102/58
[2019-08-02 05:07] LABS: BASO # 0.1 x10^3/uL (0.0-0.2); BASO % 1 % (0-3); EOS # 0.2 x10^3/uL (0.0-0.7); EOS % 3 % (0-3); HEMATOCRIT 24.6 % (39.0-53.0); HEMOGLOBIN 8.3 g/dL (13.0-17.5); LYMPH # 2.1 x10^3/uL (1.0-4.8); LYMPH % 32 % (24-48); MEAN CORPUSCULAR HEMOGLOBIN 32 pg (25-35); MEAN CORPUSCULAR HGB CONC 34 g/dL (31-37); MEAN CORPUSCULAR VOLUME 95 fL (79-100); MONO # 0.6 x10^3/uL (0.0-1.1); MONO % 9 % (0-9); NEUT # 3.6 x10^3/uL (1.8-7.7); NEUT % 56 % (31-73); PLATELET COUNT 364 x10^3/uL (140-400); RED BLOOD COUNT 2.59 x10^6/uL (4.30-5.70); RED CELL DISTRIBUTION WIDTH 16.1 % (11.5-14.5); WHITE BLOOD COUNT 6.4 x10^3/uL (4.0-11.0)
[2019-08-02 05:26] LABS: CALCIUM 8.7 mg/dL (8.5-10.1); CREATININE 1.3 mg/dL (0.7-1.3); GFR 54.1; POTASSIUM 3.8 mmol/L (3.5-5.1)
[2019-08-02] MEDS: PANTOPRAZOLE 40 MG TABLET.DR. PO SCH (05:27)
[2019-08-02 07:00] VITALS: BP 95/57
[2019-08-02] MEDS: IPRATRPIUM/ALBUTEROL 0.5/2.5MG 3 ML NEBU. NEB SCH ×2 (07:47→11:58)
[2019-08-02] MEDS: POLYETHYLENE GLYCOL 3350 17 GM PACKET. PO SCH (09:00)
[2019-08-02] MEDS ORDERED: MEMANTINE 5 MG TABLET. PO SCH (09:00)
[2019-08-02] MEDS: LACTOBACILLUS RHAMNOSUS GG 1 CAPSULE. PO SCH (09:16)
--- NOTE | 2019-08-02 09:16 | NUR ---
MARGARITA following. Discussed with RN, insurance has approved for pt to go to [facility] for SNU. Transportation set up for 1130. MARGARITA notifying family, RN notified.
[2019-08-02] MEDS: DONEPEZIL HCL 10 MG TABLET. PO SCH (09:17)
[2019-08-02] MEDS: GABAPENTIN 100 MG CAPSULE. PO SCH (09:17)
--- NOTE | 2019-08-02 11:50 | NUR ---
REPORT CALLED TO MAYCO AT [facility], QUESTIONS AND CONCERNS ANSWERED, DISCHARGE PAPERWORK GIVEN TO RADIOLOGIST CHIEF OF BREAST IMAGING, FAMILY MEMBERS AT THE BEDSIDE, ALL PERSONAL BELONGINGS GATHERED BY THE PATIENT AND SENIOR MARKETING ANALYST AND PLACED IN BAGS FOR DISCHARGE. PATIENT LEAVES THE UNIT PER W/C, EMOTIONAL SUPPORT GIVEN, FOLLOW UP APPOINTMENTS ENCOURAGED, PATIENT ALSO INFORMED BY THIS DEVULCANIZER OPERATOR TO NOT BEAR WEIGHT ON HIS LEFT FOOT UNTIL SEEN BY DR. OTOOLE IN 2 WEEKS.
--- NOTE | 2019-08-02 12:10 | PDOC3 ---
Discharge Summary Visit Information Date of Admission: Jul 25, 2019 Date of Discharge: Aug 02, 2019 Admitting Diagnosis Comment: 1. dementia with delirium, improved, 2. Leukocytosis , SIRS 3. cognitive decline x months, patient with worsening dementia. Patient will likely need placement. Mild foci of decreased aeration within the hemispheric white matter, most often due to chronic microvascular ischemia. ct head 07/25 4. severe protein-caloric malnutrition 5. HX copd, remote heavy tobacco abuse 6. abnormal weight loss, recent 7. anemia, with weaskness 8. hematuria has resolved 9. Acute non displaced medial malleolus fx, recnt sx - NON Surgical for now 10. GEN weakness, SNU candidate 11. HYPOTENSION, borderline Final Diagnosis Problems Medical Problems: (1) Altered level of consciousness Status: Acute (2) Anemia Status: Acute (3) Dehydration Status: Acute (4) Elevated lactic acid level Status: Acute (5) Hypoalbuminemia Status: Acute (6) Hypotension Status: Acute (7) Urinary tract infection Status: Acute Brief Hospital Course Allergies Allergies Coded Allergies Type Severity Reaction Last Updated Verified No Known Allergies Allergy Unknown 07/09/18 Yes Vital Signs Vital Signs Date Time Temp Pulse Resp B/P (MAP) Pulse Ox O2 Delivery O2 Flow Rate FiO2 08/02/19 08:00 Room Air 08/02/19 07:48 96 08/02/19 07:00 98.1 83 95/57 (70) 98.1 08/02/19 03:32 18 08/01/19 23:09 3.0 Lab Results Laboratory Tests Test 08/01/19 04:40 08/02/19 04:55 White Blood Count 6.6 x10^3/uL (4.0-11.0) 6.4 x10^3/uL (4.0-11.0) Red Blood Count 2.39 x10^6/uL (4.30-5.70) 2.59 x10^6/uL (4.30-5.70) Hemoglobin 7.6 g/dL (13.0-17.5) 8.3 g/dL (13.0-17.5) Hematocrit 22.6 % (39.0-53.0) 24.6 % (39.0-53.0) Mean Corpuscular Volume 95 fL (79-100) 95 fL (79-100) Mean Corpuscular Hemoglobin 32 pg (25-35) 32 pg (25-35) Mean Corpuscular Hemoglobin Concent 34 g/dL (31-37) 34 g/dL (31-37) Red Cell Distribution Width 16.3 % (11.5-14.5) 16.1 % (11.5-14.5) Platelet Count 312 x10^3/uL (140-400) 364 x10^3/uL (140-400) Neutrophils (%) (Auto) 49 % (31-73) 56 % (31-73) Lymphocytes (%) (Auto) 38 % (24-48) 32 % (24-48) Monocytes (%) (Auto) 9 % (0-9) 9 % (0-9) Eosinophils (%) (Auto) 2 % (0-3) 3 % (0-3) Basophils (%) (Auto) 2 % (0-3) 1 % (0-3) Neutrophils # (Auto) 3.2 x10^3/uL (1.8-7.7) 3.6 x10^3/uL (1.8-7.7) Lymphocytes # (Auto) 2.5 x10^3/uL (1.0-4.8) 2.1 x10^3/uL (1.0-4.8) Monocytes # (Auto) 0.6 x10^3/uL (0.0-1.1) 0.6 x10^3/uL (0.0-1.1) Eosinophils # (Auto) 0.2 x10^3/uL (0.0-0.7) 0.2 x10^3/uL (0.0-0.7) Basophils # (Auto) 0.1 x10^3/uL (0.0-0.2) 0.1 x10^3/uL (0.0-0.2) Sodium Level 142 mmol/L (136-145) 142 mmol/L (136-145) Potassium Level 3.6 mmol/L (3.5-5.1) 3.8 mmol/L (3.5-5.1) Chloride Level 108 mmol/L (98-107) 108 mmol/L (98-107) Carbon Dioxide Level 26 mmol/L (21-32) 27 mmol/L (21-32) Anion Gap 8 (6-14) 7 (6-14) Blood Urea Nitrogen 16 mg/dL (8-26) 16 mg/dL (8-26) Creatinine 1.0 mg/dL (0.7-1.3) 1.3 mg/dL (0.7-1.3) Estimated GFR (Cockcroft-Gault) 73.2 54.1 Glucose Level 96 mg/dL (70-99) 98 mg/dL (70-99) Calcium Level 8.5 mg/dL (8.5-10.1) 8.7 mg/dL (8.5-10.1) Laboratory Tests Test 08/02/19 04:55 White Blood Count 6.4 x10^3/uL (4.0-11.0) Red Blood Count 2.59 x10^6/uL (4.30-5.70) Hemoglobin 8.3 g/dL (13.0-17.5) Hematocrit 24.6 % (39.0-53.0) Mean Corpuscular Volume 95 fL (79-100) Mean Corpuscular Hemoglobin 32 pg (25-35) Mean Corpuscular Hemoglobin Concent 34 g/dL (31-37) Red Cell Distribution Width 16.1 % (11.5-14.5) Platelet Count 364 x10^3/uL (140-400) Neutrophils (%) (Auto) 56 % (31-73) Lymphocytes (%) (Auto) 32 % (24-48) Monocytes (%) (Auto) 9 % (0-9) Eosinophils (%) (Auto) 3 % (0-3) Basophils (%) (Auto) 1 % (0-3) Neutrophils # (Auto) 3.6 x10^3/uL (1.8-7.7) Lymphocytes # (Auto) 2.1 x10^3/uL (1.0-4.8) Monocytes # (Auto) 0.6 x10^3/uL (0.0-1.1) Eosinophils # (Auto) 0.2 x10^3/uL (0.0-0.7) Basophils # (Auto) 0.1 x10^3/uL (0.0-0.2) Sodium Level 142 mmol/L (136-145) Potassium Level 3.8 mmol/L (3.5-5.1) Chloride Level 108 mmol/L (98-107) Carbon Dioxide Level 27 mmol/L (21-32) Anion Gap 7 (6-14) Blood Urea Nitrogen 16 mg/dL (8-26) Creatinine 1.3 mg/dL (0.7-1.3) Estimated GFR (Cockcroft-Gault) 54.1 Glucose Level 98 mg/dL (70-99) Calcium Level 8.7 mg/dL (8.5-10.1) Brief Hospital Course Mr. Rose is a 73 [facility] who came from [facility], had fallen and had an acute non displaced fx ankle, on op of a recent s[facility] that same [facility] by [facility], Seen by our ortho, cont walker, no surgical needs as of this pt and can ff up [facility], HE needed SNU, initially he wanted just home but JELANI Lynnette was adamant need SNU, So wegot him SNU, he is now agreeable, [facility] BP can be low, dont think he is on BP meds at home, MAR done disPO;SNU consult,. ORtho proc: none Discharge Information Scheduled Amitriptyline Hcl (Amitriptyline Hcl) 25 Mg Tablet, 1 TAB PO QHS for Neurogenic pain, #30 Ref 5 (Reported) Entered as Reported by: GABBY ANDERSON RN on 07/26/191804 Last Action: New Order on 07/26/191804 by GABBY ANDERSON RN Cholecalciferol (Vitamin D3) (D3-50) 50,000 Unit Capsule, 50,000 UNIT PO DAILY for vitamin deficiency, (Reported) Entered as Reported by: GABBY ANDERSON RN on 07/26/191804 Last Taken: Unknown Dose on 07/25/19 Last Action: New Order on 07/26/191804 by GABBY ANDERSON RN Cyanocobalamin (Vitamin B-12) (Cyanocobalamin Injection) 1,000 Mcg/1 Ml Vial, 1,000 MCG IM QMONTH for mvi, #30 Prescribed by: ANABELLE MARIO on 07/31/19 1025 Donepezil Hcl (Donepezil Hcl) 10 Mg Tablet, 1 TAB PO DAILY for dementia, #90 Ref 1 (Reported) Entered as Reported by: GABBY ANDERSON RN on 07/26/191804 Last Taken: Unknown Dose on 07/25/19 Last Action: New Order on 07/26/191804 by GABBY ANDERSON RN Finasteride (Finasteride) 5 Mg Tablet, 5 MG PO DAILY for urinary retention, (Reported) Entered as Reported by: GABBY ANDERSON RN on 07/26/191804 Last Taken: Unknown Dose on 07/25/19 Last Action: New Order on 07/26/191804 by GABBY ANDERSON RN Gabapentin (Gabapentin ) 300 Mg Capsule, 300 MG PO TID for NEUROGENIC PAIN, (Reported) Entered as Reported by: GABBY ANDERSON RN on 07/26/191804 Last Taken: 300 mg BID on 07/25/19 Last Action: New Order on 07/26/191804 by GABBY ANDERSON RN Levofloxacin (Levaquin) 750 Mg Tablet, 750 MG PO DAILY06 for rectal mass/ for 7 Days, #7 Prescribed by: ANABELLE MARIO on 07/31/19 1025 Memantine HCl (Memantine HCl) 5 Mg Tablet, 5 MG PO BID for dementia, #60 Prescribed by: ANABELLE MARIO on 07/31/19 1025 Morphine Sulfate (Morphine Sulfate Er) 15 Mg Tablet.er, 15 MG PO BID for -his home med, #60 Prescribed by: ANABELLE MARIO on 07/31/19 1025 Pantoprazole Sodium (Pantoprazole Sodium ) 40 Mg Tablet.dr, 40 MG PO DAILYAC for rectal bleed?, #60 Prescribed by: ANABELLE MARIO on 07/31/19 1025 Potassium Chloride (Potassium Chloride ) 20 Meq Tablet.er, 20 MEQ PO DAILY for SUPPLEMENT, (Reported) Entered as Reported by: GABBY ANDERSON RN on 07/26/191804 Last Taken: Unknown Dose on 07/25/19 Last Action: New Order on 07/26/191804 by GABBY ANDERSON RN Tamsulosin Hcl (Flomax) 0.4 Mg Cap.er.24h, 0.4 MG PO DAILY for urinary retention, (Reported) Entered as Reported by: GABBY ANDERSON RN on 07/26/191804 Last Taken: Unknown Dose on 07/25/19 Last Action: New Order on 07/26/191804 by GABBY ANDERSON RN Venlafaxine Hcl (Venlafaxine Hcl) 75 Mg Tablet, 75 MG PO BID for Anxiety, (Reported) Entered as Reported by: GABBY ANDERSON RN on 07/26/191804 Last Taken: Unknown Dose on 07/25/19 Last Action: New Order on 07/26/191804 by GABBY ANDERSON RN Scheduled PRN Hydrocodone/Apap 5-325 ([place] 5-325 Tablet) 1 Each Tablet, 1-2 EACH PO PRN Q6HRS PRN for - his home med, #15 as needed for pain Prescribed by: ANABELLE MARIO on 07/31/19 1025 Hemodynamically unstable?: No Is patient in severe pain?: No Is NPO status required?: ANABELLE Chowdary MD Aug 02, 2019 12:10
== END 2019-08-02 11:55 | DRG 562 ==
LOC: ER 12:32 → ED HOLD 13:00 → 6 SOUTH 18:16 → 5 SOUTH 07-31 19:30
PROVIDERS: ADMIT Family Medicine; ATTEND Family Medicine
PROC: 30233N1 Transfusion of Nonautologous Red Blood Cells into Peripheral Vein, Percutaneous Approach (ICD-10-PCS; principal; 2019-07-25)
PROC: 0DJD8ZZ Inspection of Lower Intestinal Tract, Via Natural or Artificial Opening Endoscopic (ICD-10-PCS; 2019-07-26)
DX: S82.56XA Nondisplaced fracture of medial malleolus of unspecified tibia, initial encounter for closed fracture (principal); E43 Unspecified severe protein-calorie malnutrition; G93.41 Metabolic encephalopathy; N39.0 Urinary tract infection, site not specified; D62 Acute posthemorrhagic anemia; F05 Delirium due to known physiological condition; J98.11 Atelectasis; E86.0 Dehydration; C43.9 Malignant melanoma of skin, unspecified; D17.9 Benign lipomatous neoplasm, unspecified; E78.00 Pure hypercholesterolemia, unspecified; E78.5 Hyperlipidemia, unspecified; F02.80 Dementia in other diseases classified elsewhere, unspecified severity, without behavioral disturbance, psychotic disturbance, mood disturbance, and anxiety; F17.210 Nicotine dependence, cigarettes, uncomplicated; F41.9 Anxiety disorder, unspecified; G30.9 Alzheimer's disease, unspecified; G50.0 Trigeminal neuralgia; G93.89 Other specified disorders of brain; I10 Essential (primary) hypertension; I71.4 Abdominal aortic aneurysm, without rupture; J44.9 Chronic obstructive pulmonary disease, unspecified; M19.012 Primary osteoarthritis, left shoulder; N40.1 Benign prostatic hyperplasia with lower urinary tract symptoms; R09.02 Hypoxemia; R31.0 Gross hematuria; Z79.899 Other long term (current) drug therapy; Z82.49 Family history of ischemic heart disease and other diseases of the circulatory system; Z85.820 Personal history of malignant melanoma of skin; F32.9 Major depressive disorder, single episode, unspecified; G89.29 Other chronic pain; M19.90 Unspecified osteoarthritis, unspecified site; W18.39XA Other fall on same level, initial encounter; Y93.89 Activity, other specified; Y92.89 Other specified places as the place of occurrence of the external cause; Y99.8 Other external cause status; Z68.22 Body mass index [BMI] 22.0-22.9, adult; K64.8 Other hemorrhoids
CPT/HCPCS: 36415; 36600; 45330; 70450; 71045; 71100; 73610; 74177; 80048; 80053; 80307; 81001; 82550; 82607; 82805; 83540; 83550; 83605; 83690; 83735; 83880; 84145; 84436; 84443; 84484; 85014; 85018; 85025; 85610; 85651; 85730; 86850; 86900; 86901; 86920; 87040; 87086; 93005; 94640; 94760; J0696; J1650; J1956; J2001; J2270; J2543; J2704; J3010; J3420; J7030; J7620; P9016; Q9966; Q9967; 92610; 97116; 97530; 97535; G0378